=== PATIENT | male | born 1965 | race Caucasian/White ===

== ENCOUNTER 2019-09-13 13:04 | Emergency (ER) | payer OTHER, SELFPAY ==
[2019-09-13 13:06] VITALS: BP 142/94; PULSE 137; RESP 20; TEMP 37.1; O2SAT 98; BMI 26.6
--- NOTE | 2019-09-13 13:21 | EKG12_ITS ---
Test Reason : Blood Pressure : / mmHG Vent. Rate : 120 BPM Atrial Rate : 120 BPM P-R Int : 130 ms QRS Dur : 082 ms QT Int : 328 ms P-R-T Axes : 064 057 -63 degrees QTc Int : [address] & T wave abnormality, consider inferior ischemia Abnormal ECG Confirmed by SILVINA NIX, GAYLE ([id number]), fan mail editor RITA INMAN ([id number]) on 09/14/2019 1:37:40 PM Referred By: JOHANN Confirmed By:GAYLE COOL MD
--- NOTE | 2019-09-13 13:21 | RAD_ITS ---
STUDY: X-RAY CHEST REASON FOR EXAM: Male, 54 years old. SOB, COUGH, ASTHMA TECHNIQUE: AP upright portable view. COMPARISON: 05/13/2017. FINDINGS: The lungs are clear and expanded. There is no demonstrated pleural abnormality. Normal size heart. Normal mediastinum and adonis. Normal visualized pulmonary arteries. Normal visualized aortic arch and descending thoracic aorta. Normal visualized thoracic spine. Normal visualized ribs, clavicles, and shoulders. There is no demonstrated abnormality of the visualized soft tissue structures of the upper abdomen. RAD/Chest 1 View (Portable) IMPRESSION: Normal x-ray examination of the chest and unchanged since 05/13/2017. Electronically Signed: Bernabe Banks MD at 13:58 EDT , Service support ,
--- NOTE | 2019-09-13 13:22 | ED.VIS.GEN ---
History of Present Illness Chief Complaint: Shortness of Breath Narrative: This patient is a 54-year-old male who presents with shortness of breath. He initially became ill about 2 weeks ago with a URI-like illness. He had sinus congestion rhinorrhea and sore throat. No fevers. He does have a dry cough. His upper respiratory symptoms have improved but now he complains of burning and tightness in his chest which feels similar to exacerbations of asthma. His doctor called in Augmentin X days ago which she has been taking. He has not been improving and has been using his albuterol inhaler frequently without significant relief. His doctor called in a prednisone taper which she started last night and took 20 mg of prednisone last night and again today. He continues to feel short of breath. No fevers. No vomiting or diarrhea. He denies any pain. Past Medical History - Allergies and Home Meds Allergies/Adverse Reactions: Allergies codeine Adverse Reaction (Verified 09/13/19 13:08) Nausea Primary Care Physician: Karley Mckeon DO [Primary Care Provider] - Past Medical History: - - Asthma Smoking Status: Never smoker Review of Systems All systems negative except as indicated General: Denies: Fever Eyes: Denies: Visual changes - bilaterally ENT: Reports: Rhinorrhea, Sore throat. Denies: Bilateral ear pain Cardiovascular: Denies: Chest pain Respiratory: Reports: Dyspnea, Cough. Denies: Sputum Gastrointestinal: Denies: Abdominal pain, Nausea, Vomiting Musculoskeletal: Denies: Myalgias, Arthralgias Skin: Denies: Rash Neurological: Denies: Headache Physical Exam Vital Signs/Narrative: Vital Signs Temp Pulse Resp BP Pulse Ox 09/13/19 13:06 98.8 F 137 H 20 H 142/94 H 98 Inital Vital Signs reviewed: Yes General: Well nourished, Well developed Head: Normocephalic Eyes: EOMI ENT: Moist mucous membranes Neck: Supple Cardiovascular: - - Is regular tachycardia, no murmur, gallop, rub Respiratory: - - No distress able speak in full sentences he does not have rales rhonchi or wheezing and does have good air exchange Abdomen: Soft, Nontender Skin: Normal color Neurological: Alert Psychological: Normal affect Diagnostic/Tx/Re-eval Impressions Chest X-Ray 09/13/19 13:21 IMPRESSION: Normal x-ray examination of the chest and unchanged since 05/13/2017. Electronically Signed: Bernabe Banks MD at 13:58 EDT , Service support , 09/13/19 13:21 Chest 1 View (Portable) [RAD] Stat 09/13/19 13:35 Mucosa - Nasopharyngeal Rapid RSV (DFA) - Final 09/13/19 13:35 Mucosa - Nasopharyngeal Influenza Types A,B Direct FA (BENNY) - Final Laboratory Results 09/13/19 09/13/19 13:45 13:45 WBC 10.0 RBC 5.39 Hgb 16.4 Hct 48.9 MCV 90.7 MCH 30.4 MCHC 33.5 RDW Std Deviation 40.8 RDW Coeff of Storm 12.3 Plt Count 215 MPV 11.0 Immature Gran % (Auto) 0.200 Neut % (Auto) 85.4 H Lymph % (Auto) 11.3 L [place] % (Auto) 2.9 Eos % (Auto) 0.0 Baso % (Auto) 0.2 Absolute Neuts (auto) 8.6 H Absolute Lymphs (auto) 1.13 Nucleated RBC % 0 Sodium 141 Potassium 3.7 Chloride 107 Carbon Dioxide 25.0 Anion Gap 9 BUN 7 Creatinine 1.05 Estim Creat Clear Calc 76.07 Est GFR (MDRD) Af Amer 95 Est GFR (MDRD) Non-Af 78 BUN/Creatinine Ratio 6.7 L Glucose 122 H Calcium 9.2 - Medical Decision Making EKG shows sinus tachycardia at a rate of 120. Patient has inferior T wave inversions. CBC BMP unremarkable. Rapid influenza and RSV negative. Chest x-ray shows no acute process. Patient symptoms do seem to be respiratory in nature but given EKG changes troponin is pending at the time of this dictation. On reevaluation patient is resting comfortably. His heart rate is improved although is still slightly tachycardic. He is being treated with IV fluids. This time his troponin is negative I do not see a benefit to hospitalization especially given in the setting of potential increased exposure during the Covid19 pandemic. He is agreeable with this plan. If troponin is negative plan is discharged home to follow-up as an outpatient. He is currently on antibiotics and steroids and he was advised to continue this. He understands to return for new or worsening symptoms and was instructed on specific signs and symptoms to monitor for. ED Disposition - Plan for ED Patient: Disposition: Home or Assisted Living Diagnosis: Bronchitis, Asthma exacerbation Instructions: Acute Bronchitis, ED REACTIVE AIRWAY DISEASE Adult Referrals: Karley Mckeon DO [Primary Care Provider] -
[2019-09-13 13:56] VITALS: BP 129/101; BP 142/94; PULSE 104; PULSE 137; RESP 20; TEMP 37.1; O2SAT 97; O2SAT 98; BMI 26.7
[2019-09-13 13:56] LABS: Absolute Lymphocyte Count 1.13 X10^3/uL (0.83-4.51); Absolute Neutrophil Count 8.6 X10^3/uL (2.0-7.7); Basophil# 0.02 X10^3/uL; Basophil% 0.2 % (0-1); Hematocrit 48.9 % (40-54); Hemoglobin 16.4 g/dL (13.0-16.5); Lymphocyte # 1.13 X10^3/ul (4.0); Lymphocyte % 11.3 % (19-41); Mean Corp Hgb Conc 33.5 g/dL (32-36); Mean Corpuscular Hgb 30.4 pg (27.0-32.0); Mean Corpuscular Volume 90.7 fL (80-94); Monocyte# 0.29 X10^3/uL; Monocyte% 2.9 % (0-10); NRBC Flagged by Analyzer 0 % (0-5); Neutrophil # 8.55 X10^3/uL (2.7-7.7); Neutrophil % 85.4 % (47-70); Platelet Count 215 K/mm3 (150-450); RBC Distribution Width CV 12.3 % (11.6-14.6); RBC Distribution Width SD 40.8 fl (35.1-43.9); Red Blood Count 5.39 M/mm3 (4.6-6.2)
[2019-09-13 14:06] LABS: Anion Gap 9 (5-15); BUN 7 mg/dL (7-18); BUN/Creat Ratio 6.7 RATIO (10-20); Calcium,Total 9.2 mg/dL (8.5-10.1); Chloride 107 mmol/L (98-107); Creatinine, Serum 1.05 mg/dL (0.70-1.30); EST Glomerular Filtration Rate 78 mL/min (>60); Est Glom Filt Rate - Afr Amer 95 mL/min (>60); Estimated Creatinine Clearance 76.07 ml/min; Glucose 122 mg/dL (74-106); Potassium 3.7 mmol/L (3.5-5.1); Sodium Level 141 mmol/L (136-145)
[2019-09-13] MEDS: 0.9% Normal Saline 1,000 ML 999 ML IV (14:17)
[2019-09-13 15:21] VITALS: BP 124/93; PULSE 89; RESP 16; TEMP 37.2; O2SAT 96
[2019-09-13 15:53] VITALS: BP 139/106; PULSE 94; RESP 18; TEMP 36.9; O2SAT 99
== END 2019-09-13 15:58 | disposition home or self-care (01) ==
PROVIDERS: Emergency Provider Emergency Medicine; PCP Internal Medicine
DX: J45.901 Unspecified asthma with (acute) exacerbation (principal); J40 Bronchitis, not specified as acute or chronic; R00.0 Tachycardia, unspecified; Z88.5 Allergy status to narcotic agent; Z79.52 Long term (current) use of systemic steroids; Z79.899 Other long term (current) drug therapy
CPT/HCPCS: 71045; 80048; 84484; 85025; 87804; 87807; 93005; 96360; 96361; 99283; J7030

== ENCOUNTER → 2019-09-23 10:23 | Outpatient (CLI) | payer OTHER, SELFPAY ==
[2019-09-13 13:56] VITALS: BMI 26.7
--- NOTE | 2019-09-23 10:43 | RAD_ITS ---
STUDY: X-RAY CHEST REASON FOR EXAM: Male, 54 years old. Dry cough, sob, x 1 week, hx asthma TECHNIQUE: PA and lateral views of the chest. COMPARISON: Comparison is made with prior examination dated September 13, 2019. FINDINGS: The lungs are clear and expanded. There is no demonstrated pleural abnormality. Normal size heart. Normal mediastinum and adonis. Normal visualized pulmonary arteries. Normal visualized aortic arch and descending thoracic aorta. There are mild degenerative changes of the visualized thoracic spine. Normal visualized ribs, clavicles, and shoulders. There is no demonstrated abnormality of the visualized soft tissue structures of the upper abdomen. RAD/Chest PA and Lateral IMPRESSION: Normal x-ray examination of the chest. Electronically Signed: Enrique Narvaez, at 11:22 EDT , Service support ,
== END ==
PROVIDERS: PCP Internal Medicine; Referring Provider Internal Medicine; Visit Provider Internal Medicine
DX: R05 Cough (principal)
CPT/HCPCS: 71046

== ENCOUNTER → 2019-10-21 15:31 | Outpatient (CLI) | payer OTHER, SELFPAY ==
--- NOTE | 2019-10-21 15:34 | CT_ITS ---
STUDY: CTA CHEST REASON FOR EXAM: Male, 54 years old. SOB x 2 months, ? PE RADIATION DOSAGE (If Supplied By Facility): CTDIvol = ( 7.34 ) mGy, DLP = ( 343.84 ) mGycm TECHNIQUE: The examination was performed with the intravenous administration of 100ML ISOVUE 370. Post-processing of the angiographic images was performed, with multiplanar reformation and 3D reconstruction. Individualized dose optimization techniques were used for this CT. COMPARISON: None. FINDINGS: Small bilateral benign-appearing axillary lymph nodes. Normal enhancement of the main pulmonary artery and right and left pulmonary arteries. Normal enhancement of the bilateral peripheral pulmonary arteries. There is no demonstrated pulmonary embolism. Normal thoracic aorta and visualized great vessels. There is no demonstrated aortic dissection. Normal heart and pericardium. Normal mediastinum. Normal hilar regions. Normal visualized trachea and bronchi. The lungs are well expanded. 4.1 mm faint nodule in the lateral aspect of the right upper lobe as seen on axial image #177. Normal pleura. Normal chest wall structures. Normal osseous structures. There is a 1.5 cm cyst in the dome of the right lobe of the liver. Small hiatal hernia. CT/CTA Chest W/WO Contrast IMPRESSION: No evidence of pulmonary emboli. 1.5 cm cyst in the dome of the right lobe of the liver. 4.1 mm faint nodule in the lateral aspect of the right upper lobe. Electronically Signed: Enrique Narvaez, at 16:01 EDT , Service support ,
== END ==
PROVIDERS: PCP Internal Medicine; Referring Provider Internal Medicine; Visit Provider Internal Medicine
DX: R06.02 Shortness of breath (principal)
CPT/HCPCS: 71275; Q9967

== ENCOUNTER → 2019-11-23 | Outpatient (CLI) | payer OTHER, SELFPAY ==
--- NOTE | 2019-11-23 09:42 | PFTCOMP_ITS ---
COMPLETE PULMONARY FUNCTION TEST INTERPRETATION Brief HPI: Patient is a 54 year old male, currently under the care of myself, who presents to [facility] for complete pulmonary function tests secondary to diagnosis of dyspnea. Respiratory therapist reports good effort and reproducible results. Interpretation: Forced expiration spirometry shows no large airways obstructive ventilatory defect with an FEV1 of 102% predicted. There is no significant bronchodilator response by strict ATS criteria. Spirograms are of good quality and plateau normally. The respiratory flow volume loop shows a normal pattern. Lung volumes by body plethysmography show an elevated total lung capacity at 7.07 L, 117% predicted. All other lung volumes are increased symmetrically. Diffusion capacity by carbon monoxide is normal at 118% predicted. The airway resistance is normal. No previous pulmonary function tests were available for review. Impression: These pulmonary function tests are within normal limits. Hyperinflation may be a normal physiologic variant.
== END | disposition home or self-care (01) ==
LOC: PSN 07:13
PROVIDERS: PCP Internal Medicine; Referring Provider Internal Medicine Critical Care Medicine; Visit Provider Internal Medicine Critical Care Medicine
DX: R06.02 Shortness of breath (principal)
CPT/HCPCS: 94060; 94726; 94729

== ENCOUNTER → 2020-04-22 06:50 | Outpatient (CLI) | payer OTHER, SELFPAY ==
--- NOTE | 2020-04-22 06:51 | CT_ITS ---
STUDY: CT CHEST WITHOUT CONTRAST REASON FOR EXAM: Male, 54 years old. Lung nodule follow up, no new problems. Hx asthma. RADIATION DOSAGE (If Supplied By Facility): CTDIvol = ( 8.99 ) mGy, DLP = ( 343.88 ) mGycm TECHNIQUE: Transaxial imaging was performed without the administration of intravenous contrast material. Multiplanar coronal and sagittal images were reformatted. Individualized dose optimization techniques were used for this CT. COMPARISON: Comparison is made with prior study dated 10/21/2011. FINDINGS: Stable small benign-appearing bilateral axillary lymph nodes. Mild degree of emphysematous changes. Stable faintly seen 4.1 mm nodule in the lateral aspect of the right upper lobe as seen on axial image #38. There is no demonstrated pleural abnormality. Normal heart and pericardium. Normal mediastinum. Normal hilar regions. Normal unenhanced pulmonary arteries. Normal aorta arch and descending thoracic aorta. Normal osseous structures. Stable appearance of the bilateral hepatic cysts. CT/Chest without Contrast IMPRESSION: Stable examination. 12 month follow-up examination is recommended. Electronically Signed: Enrique Narvaez, at 11:06 EST , Service support ,
== END ==
PROVIDERS: PCP Internal Medicine; Referring Provider Internal Medicine; Visit Provider Internal Medicine
DX: R91.1 Solitary pulmonary nodule (principal)
CPT/HCPCS: 71250

== ENCOUNTER → 2021-04-24 06:41 | Outpatient (CLI) | payer OTHER, SELFPAY ==
--- NOTE | 2021-04-24 06:46 | CT_ITS ---
STUDY: CT CHEST WITHOUT CONTRAST REASON FOR EXAM: Male, 55 years old. Follow up 4.1 mm nodule RADIATION DOSAGE (If Supplied By Facility): CTDIvol = ( 11.18 ) mGy, DLP = ( 438.72 ) mGycm TECHNIQUE: Transaxial imaging was performed without the administration of intravenous contrast material. Multiplanar coronal and sagittal images were reformatted. Individualized dose optimization techniques were used for this CT. COMPARISON: Comparison is made with prior study dated 04/22/2020. FINDINGS: Stable small benign-appearing bilateral axillary lymph nodes. Stable mild degree of emphysematous changes. Stable 4 mm faint nodule seen in the peripheral lateral aspect of the right upper lobe as seen on axial image #44. There is no demonstrated pleural abnormality. Normal heart and pericardium. Normal mediastinum. Normal hilar regions. Normal unenhanced pulmonary arteries. Normal aorta arch and descending thoracic aorta. Normal osseous structures. Stable appearance of the cysts within the liver. CT/Chest without Contrast IMPRESSION: Stable 4 mm nodule in the lateral aspect of the right upper lobe. Electronically Signed: Enrique Narvaez MD at 9:06 EST , Service support ,
== END ==
PROVIDERS: PCP Internal Medicine; Referring Provider Nurse Practitioner Acute Care; Visit Provider Nurse Practitioner Acute Care
DX: R91.1 Solitary pulmonary nodule (principal)
CPT/HCPCS: 71250

== ENCOUNTER 2021-08-29 12:53 | Outpatient (CLI) | payer OTHER, SELFPAY ==
--- NOTE | 2021-08-29 12:37 | EKG12_ITS ---
Test Reason : PREOP Blood Pressure : / mmHG Vent. Rate : 072 BPM Atrial Rate : 072 BPM P-R Int : 130 ms QRS Dur : 086 ms QT Int : 392 ms P-R-T Axes : 062 070 004 degrees QTc Int : 429 ms Sinus rhythm with marked sinus arrhythmia Nonspecific ST and T wave abnormality Abnormal ECG Confirmed by COURTNEY NIX, FAISAL ([id number]), scientific publications editor YUDI OCONNOR ([id number]) on 08/31/2021 10:08:51 AM Referred By: Nicholas Jean-Baptiste Confirmed By:FAISAL VALDEZ MD
== END 2021-08-29 23:59 | disposition home or self-care (01) ==
LOC: PAT 09-26 12:53
PROVIDERS: PCP Internal Medicine; Referring Provider Internal Medicine Gastroenterology; Visit Provider Internal Medicine Gastroenterology
DX: Z01.818 Encounter for other preprocedural examination (principal)
CPT/HCPCS: 93005

== ENCOUNTER → 2021-10-31 | Outpatient (CLI) | payer OTHER, SELFPAY ==
--- NOTE | 2021-10-31 10:42 | STEWCON_ITS ---
Reason For Study: PRE OP CLEARANCE, ARRHYTHMIA Stress Results Protocol: Ian Protocol WITH DEFINITY Maximum Predicted HR: 165 bpm Target HR: 140 bpm % Maximum Predicted HR: 99 % DurationHeart Rate Stage (mm:ss) (bpm) BP Comment BASELINE 71 112/86 STAGE 1 3:00 106 142/88 NO CHEST PAIN STAGE 2 3:00 126 144/92 STAGE 3 3:00 164 152/102 RECOVERY 97 128/84 2 CC DEFINITY FOR ENTIRE TEST Stress Duration: 9:00 mm:ss Maximum Stress HR: 164 bpm Baseline Echocardiogram Findings Stress Echo Wall motion Data Resting WM Intermediate WM Stress WM Doppler Measurements & Calculations TR max jihan: 258.9 cm/sec TR max P.8 mmHg ECHO/Stress Test Echo W/Contrast Interpretation Summary Exercise stress echo. 56-year-old male with a history of preoperative cardiac evaluation. Stress protocol: Resting EKG demonstrates sinus rhythm with a rate of 67 bpm normal intervals ar e noted resting blood pressure is 102/86 mmHg. The patient exercised according to regular Ian vinnie col for total duration of 9 minutes. The maximum heart rate attained was 164 bpm which was 99 % of max impact at heart rate the maximum workload was 10.1 metabolic equivalents. At rest there w ere no ST or T wave changes noted suggest ischemia and at peak exercise upsloping ST changes were n oted with did not meet the criteria for ischemia. Some T wave inversions were noted in lead III a nd aVF. No chest pain was noted the test was terminated due to target heart rate being achieved. The peak blood pressure is 152/102 mmHg which was a good blood pressure response to exercise. Stress echocardiogram. The resting echocardiogram was performed with Definity e reggie. The estimated ejection fraction at rest was 55%. At peak exercise there was thicken ing of all patton and reduction of left ventricular cavity size peaking at 65%. No wall motion abnorm alities were present. Conclusion: Exercise stress echo with no EKG criteria for ischemia at a high workload. No clinical angina noted. Normal stress and resting echocardiographic images noted. Ordering Physician: Linwood Arana Referring Physician: Linwood Arana Performed By: Carmella Oliveira RDCS
== END | disposition home or self-care (01) ==
LOC: CVS 10:40
PROVIDERS: PCP Internal Medicine; Referring Provider Internal Medicine Cardiovascular Disease; Visit Provider Internal Medicine Cardiovascular Disease
DX: Z01.810 Encounter for preprocedural cardiovascular examination (principal); R00.9 Unspecified abnormalities of heart beat
CPT/HCPCS: 93017; 93350; Q9957; A4216; C8928

== ENCOUNTER 2022-02-01 06:59 | Day surgery (SDC) | payer OTHER, SELFPAY ==
[2022-02-01] VITALS (7 sets, daily range): BP systolic 93–137; BP diastolic 66–90; PULSE 65–105; RESP 16–18; TEMP 36.5–37.1; O2SAT 95–100; BMI 27.3
[2022-02-01] MEDS: Lactated Ringers 1,000 ML 15 ML IV (07:29)
--- NOTE | 2022-02-01 08:01 | PCM.HP.STD ---
HPI - General General Date of Admission: 02/01/22 Date of Service: 02/01/22 Chief Complaint: sreening colonoscopy HPI Narrative NA ARIAS, is a 56 M who presents for screening colonoscopy. He has not had a colonoscopy previously. He is not having abdominal pain. He has not had any change of bowel habits. He is not have any chest pain or shortness of breath. He does not take laxatives. He has no past medical history of anemia. Overall he is in very good health. All other 16 review of systems are negative except as per body mentioned HPI. [facility] Medical History (Updated 01/29/22 @ 13:41 by Giuliana Cody) Abnormal electrocardiogram Allergic rhinitis Arthritis Asthma Cardiology follow-up encounter Dietary restriction Encounter for screening for malignant neoplasm of colon Fibromyalgia GERD (gastroesophageal reflux disease) Migraine Muscle tension headache Normal stress echocardiogram Plantar fasciitis Wears glasses Home Medications therapeutic multivitamin 1 ea PO DAILY 05/13/17 [History Last Taken 05/12/17] loratadine 10 mg capsule 10 mg PO DAILY 11/12/19 [History Last Taken Unknown] cholecalciferol (vitamin D3) 25 mcg (1,000 unit) capsule 25 mcg PO DAILY 11/18/19 [History Last Taken Unknown] famotidine 20 mg tablet 20 mg PO DAILY 11/18/19 [History Last Taken Unknown] albuterol sulfate 90 mcg/actuation aerosol inhaler 1 - 2 puff inhalation Q6H PRN ASTHMA 08/28/21 [History Last Taken Unknown] ascorbic acid (vitamin C) 500 mg tablet (Vitamin C) 500 mg PO DAILY 08/28/21 [History Last Taken Unknown] zinc 50 mg tablet 50 mg PO DAILY 08/28/21 [History Last Taken Unknown] metaxalone 800 mg tablet 800 mg PO ONCE PRN MIGRAINES 10/11/21 [History Last Taken Unknown] rizatriptan 10 mg tablet 10 mg PO ONCE PRN MIGRAINES 10/11/21 [History Last Taken Unknown] Allergy/AdvReac Type Severity Reaction Status Date / Time codeine AdvReac Nausea Verified 02/01/22 07:19 Family History (Updated 11/06/21 @ 10:54 by Palma Salas) Father Diabetes Atrial fibrillation History of colon polyps Grandmother Diabetes Other Asthma Heart disease Hypertension Social History Smoking Status: Never smoker ROS Review of Systems ROS Unobtainable: other Constitutional Constitutional: Denies fatigue, fever(s), poor appetite, weight gain or weight loss ENT HEENT: Denies mouth lesions Cardiovascular Cardiovascular: Denies abdominal bloating, abdominal edema or abdominal pain Respiratory/Chest Respiratory/Chest: Denies change in mental status, change in phlegm color, chest congestion or chest tightness Gastrointestinal Gastrointestinal: Denies belching, bloating, change in bowel habits, change in stool character, chewing difficulty, coffee ground emesis, constipation, cramping, diarrhea, dyspepsia, dysphagia, early satiety, excessive flatus, fecal incontinence, heartburn, hematemesis, hematochezia, hemorrhoids, loose stools, melena, nausea, odynophagia, rectal bleeding, tenesmus, vomiting or weight changes Genitourinary Genitourinary: Denies abdominal discomfort, burning urination or itching Musculoskeletal Musculoskeletal: Reports as per HPI; Denies muscle weakness or myalgias Integumentary Integumentary: Denies jaundice Neurologic Neurologic: Denies lack of coordination or weakness Psychiatric Psychiatric: Denies confusion, depression, memory loss, mood swings, paranoia or suicidal ideation Endocrine Endocrinology: Denies systems reviewed and no addt'l complaints, except as documented Hematologic/Lymphatic Hematologic/Lymphatic: Denies anemia, easy bleeding, easy bruising or lymphadenopathy Allergic/Immunologic Allergic/Immunologic: Denies systems reviewed and no addt'l complaints, except as documented Vital Signs Vital Signs Vital Signs: 02/01/22 07:21 02/01/22 07:23 Temperature 97.7 F L Temperature Source Temporal Pulse Rate 105 H Respiratory Rate 18 Respiratory Pattern Normal Blood Pressure 137/90 H Blood Pressure Mean 105 Blood Pressure Source Monitor Blood Pressure Position Semi-Fowlers Blood Pressure Location Right Arm Pulse Ox 100 Oxygen Delivery Method Room Air Weight Weight: 174 lb 6.4 oz Body Mass Index (BMI) 27.3 Physical Exam Const alert General Appearance: cooperative Orientation / Consciousness: oriented to person HEENT hearing grossly normal bilaterally Head and Scalp: normal to inspection Face and Sinus: face symmetric Nose: external nose normal Mouth: oral and palatal mucosa normal Eyes conjunctivae normal General Eye: normal appearance of both eyes Neck full ROM General: normal visual inspection Lymph Lymphatic: no lymphadenopathy noted Chest inspection of chest normal and palpation of chest normal Chest: symmetrical chest wall rise Resp normal respiratory effort Effort and Inspection: able to speak in complete sentences Cardio regular rate GI non-distended Percussion: normal to percussion Rectal Exam: deferred Neuro Speech: speech normal Gait (Neuro): normal gait Assessment & Plan Assessment/Plan (1) Encounter for screening for malignant neoplasm of colon: PLAN: He was explained alternatives, risk, benefits including not withstanding bleeding, infection, sepsis, missed polyps, perforation, need for emergent surgery . Have an ASA of 1.
--- NOTE | 2022-02-01 08:15 | COLBX_PTH ---
PATIENT: NA ARIAS LOC: EN U#:[id number] AGE/SX: 56/M ROOM: RE02/01/[address]: Dr. Nicholas Jean-Baptiste DO : 1965 BED: DIS: 02/01/2022 SPEC #: [id number] RECD: 02/01/22 10:26 STATUS: MEL REChalino #: [id number] JACOB: 02/01/22 08:[address]: Nicholas Jean-Baptiste DEPT: SURGICAL PATHOLOGY RECD BY: Carly Burr ENTERED: 02/01/22 12:10 SP TYPE: COLON BX OT DR: Dr. Karley Mckeon DO Tissues: A - Ascending colon B - COLON BIOPSY C - Descending colon Procedures: Surgery Specimen Level IV HEADER OPERATION: Colonoscopy- open access (MAC) with polypectomy PRE-OP DIAGNOSIS: Encounter for screening for malignant neoplasm of colon TISSUE SUBMITTED: A. Ascending colon polyp, B. Hepatic flexure polyp, C. Descending colon polyp MICROSCOPIC DIAGNOSIS A. Ascending colon polyp, biopsy: Tubular adenoma. B. Hepatic flexure polyp, biopsy: Fragments of tubular adenoma. C. Descending colon polyp, biopsy: Fragments of tubular adenoma. AM: guerrero 02/02/2022 MICROSCOPIC DESCRIPTION Slides are reviewed. GROSS DESCRIPTION A. Received is one container labeled with the patient name and designated ascemding colon. The specimen consists of one irregular fragment of light wyatt soft tissue that measures 0.5 x 0.3 x 0.1 cm. The specimen is totally submitted in one cassette. B. Received is one container labeled with the patient name and designated hepatic flexure. The specimen consists of multiple irregular fragments of light wyatt soft tissue that in aggregate measure 2.5 x 1.0 x 0.3 cm. The specimen is totally submitted in one cassette. C. Received is one container labeled with the patient name and designated descending colon. The specimen consists of multiple irregular fragments of light wyatt soft tissue that in aggregate measure 2 x 1 x 0.3 cm. The specimen is totally submitted in one cassette. /SJ:gerson 02/01/22 TC:5 [facility]:[id number]
--- NOTE | 2022-02-01 08:43 | OP.COLON_ITS ---
Patient Name: Syed Alegre Procedure Date: 02/01/2022 8:03 AM Date of : 1965 Age: 56 Procedure: Colonoscopy Indications: Screening for colorectal malignant neoplasm Providers: Nicholas Jean-Baptiste DO Medicines: Monitored Anesthesia Care Patient Profile: This is a 56 year old male. Refer to note in patient chart for documentation of history and physical. Last Colonoscopy: none. The patient's first colonoscopy is today. Complications: No immediate complications. Procedure: Pre-Anesthesia Assessment: - Prior to the procedure, a History and Physical was performed, and patient medications and allergies were reviewed. The risks and benefits of the procedure and the sedation options and risks were discussed with the patient. All questions were answered and informed consent was obtained. Patient identification and proposed procedure were verified by the physician in the pre-procedure area. Mental Status Examination: alert and oriented. Airway Examination: normal oropharyngeal airway and neck mobility. Respiratory Examination: clear to auscultation. CV Examination: normal. Prophylactic Antibiotics: The patient does not require prophylactic antibiotics. Prior Anticoagulants: The patient has taken no previous anticoagulant or antiplatelet agents. After reviewing the risks and benefits, the patient was deemed in satisfactory condition to undergo the procedure. The anesthesia plan was to use moderate sedation / analgesia (conscious sedation). Immediately prior to administration of medications, the patient was re-assessed for adequacy to receive sedatives. The heart rate, respiratory rate, oxygen saturations, blood pressure, adequacy of pulmonary ventilation, and response to care were monitored throughout the procedure. The physical status of the patient was re-assessed after the procedure. After I obtained informed consent, the scope was passed under direct vision. Throughout the procedure, the patient's blood pressure, pulse, and oxygen saturations were monitored continuously. The adult colonoscope was introduced through the anus and advanced to the cecum, identified by appendiceal orifice and ileocecal valve. The colonoscopy was performed without difficulty. The patient tolerated the procedure well. The quality of the bowel preparation was good. Scope In: 8:13:50 AM Scope Withdrawal Time 0 hours 21 minutes 36 seconds Scope Out: 8:38:08 AM Total Procedure Duration Time 0 hours 24 minutes 18 seconds Findings: The perianal and digital rectal examinations were normal. A few small-mouthed diverticula were found in the recto-sigmoid colon and sigmoid colon. Three sessile polyps were found in the descending colon, hepatic flexure and ascending colon. The polyps were 1 to 2 mm in size. These polyps were removed with a hot snare. Resection and retrieval were complete. Verification of patient identification for the specimen was done. Estimated blood loss was minimal. Impression: - Diverticulosis in the recto-sigmoid colon and in the sigmoid colon. - Three 1 to 2 mm polyps in the descending colon, at the hepatic flexure and in the ascending colon, removed with a hot snare. Resected and retrieved. Recommendation: - Repeat colonoscopy in 3 years for surveillance. - Continue present medications. Procedure Code(s): --- Professional --- 06478, Colonoscopy, flexible; with removal of tumor(s), polyp(s), or other lesion(s) by snare technique CPT copyright 2017 [employer]. All rights reserved. The codes documented in this report are preliminary and upon digester cook review may be revised to meet current compliance requirements. Nicholas Jean-Baptiste DO 02/01/2022 8:43:19 AM This report has been signed electronically. Number of Addenda: 1 Note Initiated On: 02/01/2022 8:03 AM Addendum Number: 1 Addendum Date: 03/22/2022 6:13:35 AM MAC was used as sedation for this procedure. Nicholas Jean-Baptiste DO 03/22/2022 6:13:41 AM This report has been signed electronically.
--- NOTE | 2022-02-01 08:45 | OP.CCLET_ITS ---
03/22/2022 Karley Mckeon [address] [place] [address] Re : Colonoscopy procedure for Syed Alegre Dear Dr. Mckeon This procedure was performed on January. My impressions and recommendations are as follows: Impressions : - Diverticulosis in the recto-sigmoid colon and in the sigmoid colon. - Three 1 to 2 mm polyps in the descending colon, at the hepatic flexure and in the ascending colon, removed with a hot snare. Resected and retrieved. Recommendations : - Repeat colonoscopy in 3 years for surveillance. - Continue present medications. My findings are described in the full procedure note, which is enclosed. If I can be of further assistance, please feel free to contact me at . Sincerely, Nicholas Jean-Baptiste, 02/01/2022 8:43:19 AM This report has been signed electronically.
== END 2022-02-01 09:37 | disposition home or self-care (01) ==
LOC: EN 07:00 → AC 07:01
PROVIDERS: PCP Internal Medicine; Referring Provider Internal Medicine; Visit Provider Internal Medicine Gastroenterology
PROC: 0DJD8ZZ Inspection of Lower Intestinal Tract, Via Natural or Artificial Opening Endoscopic (ICD-10-PCS; CPT 45378; principal; 2022-02-01 08:10)
DX: Z12.11 Encounter for screening for malignant neoplasm of colon (principal); D12.2 Benign neoplasm of ascending colon; D12.3 Benign neoplasm of transverse colon; D12.4 Benign neoplasm of descending colon; K57.30 Diverticulosis of large intestine without perforation or abscess without bleeding; J45.909 Unspecified asthma, uncomplicated; M79.7 Fibromyalgia; M19.90 Unspecified osteoarthritis, unspecified site; K21.9 Gastro-esophageal reflux disease without esophagitis; Z79.899 Other long term (current) drug therapy
CPT/HCPCS: 45385; 88305; J7120; J2405

== ENCOUNTER 2023-11-24 10:00 | Emergency (ER) | payer OTHER, SELFPAY ==
[2023-11-24 10:01] VITALS: BP 127/85; PULSE 84; RESP 18; TEMP 36.3; O2SAT 98; BMI 27.3
[2023-11-24 10:04] VITALS: BP 127/85; PULSE 94; RESP 18; TEMP 36.3; O2SAT 98; BMI 27.3
--- NOTE | 2023-11-24 11:07 | EX.ED.UPPERE ---
HPI History of Present Illness HPI Narrative: Patient presents with a laceration to his left thumb that occurred today. Patient is right-hand dominant. Patient was using a razor knife and accidentally cut his left thumb. Patient is unsure of his last tetanus. Patient admits to some tingling into the tip of the thumb. Patient states nothing makes the pain better and nothing makes it worse. Patient describes the pain as burning and stabbing. Patient denies any weakness. Patient denies any other injuries. Chief Complaint: Laceration Informant: patient Onset/Context/Timing Onset: Today Context: Sudden Onset Timing: Continuous Quality of Pain: Burning and Stabbing Location: Left thumb Worsened by: Nothing Relieved by: Nothing Associated Symptoms Associated Symptoms: Positive for Parasthesia; Negative for Weakness or Loss of Funtion Narrative Tetanus Immunization: Unknown [facility] Medical History Normal stress echocardiogram Cardiology follow-up encounter Abnormal electrocardiogram Wears glasses Arthritis Dietary restriction Encounter for screening for malignant neoplasm of colon GERD (gastroesophageal reflux disease) Migraine Muscle tension headache Allergic rhinitis Asthma Plantar fasciitis Fibromyalgia Home Medications ?Medication ?Instructions ?Recorded ?Last Taken ?Type therapeutic multivitamin 1 ea PO DAILY 05/13/17 05/12/17 History loratadine 10 mg capsule 10 mg PO DAILY 11/12/19 Unknown History cholecalciferol (vitamin D3) 25 25 mcg PO DAILY 11/18/19 Unknown History mcg (1,000 unit) capsule famotidine 20 mg tablet 20 mg PO DAILY 11/18/19 Unknown History albuterol sulfate 90 mcg/actuation 1 - 2 puff inhalation Q6H PRN 08/28/21 Unknown History aerosol inhaler ASTHMA ascorbic acid (vitamin C) 500 mg 500 mg PO DAILY 08/28/21 Unknown History tablet (Vitamin C) zinc 50 mg tablet 50 mg PO DAILY 08/28/21 Unknown History metaxalone 800 mg tablet 800 mg PO ONCE PRN MIGRAINES 10/11/21 Unknown History rizatriptan 10 mg tablet 10 mg PO ONCE PRN MIGRAINES 10/11/21 Unknown History Allergy/AdvReac Type Severity Reaction Status Date / Time codeine AdvReac Nausea Verified 11/24/23 10:01 Family History (Updated 11/06/21 @ 10:54 by Palma Salas) Father Diabetes Atrial fibrillation History of colon polyps Grandmother Diabetes Other Asthma Heart disease Hypertension Surgical History no surgical history no surgical history Social History Smoking Status: Never smoker ROS ROS ED Constitutional Constitutional ED: Denies chills or fever(s) Eyes Eyes: Denies blurry vision or change in vision ENT ENT ED: Denies rhinorrhea or sore throat Cardiovascular Cardiovascular: Denies chest pain or palpitations Respiratory/Chest Respiratory/Chest: Denies cough or dyspnea Gastrointestinal Gastrointestinal: Denies nausea or vomiting Genitourinary Genitourinary ED: Denies dysuria or hematuria Musculoskeletal Musculoskeletal: Denies back pain or neck pain Integumentary Denies abscess or rash Neurologic Neurologic: Denies headache(s) or weakness Allergic/Immunologic Allergic/Immunologic ED: Denies mouth swelling or urticaria EXAM Physical Exam Const Vital Signs: 11/24/23 10:01 11/24/23 10:04 Temperature 97.3 F L 97.4 F L Temperature Source Temporal Temporal Pulse Rate 84 94 Respiratory Rate 18 18 Blood Pressure 127/85 H 127/85 H Blood Pressure Mean 99 99 Pulse Ox 98 98 Oxygen Delivery Method Room Air Room Air Positive well nourished and well developed General Appearance ED: well developed and NAD HEENT Reports moist mucous membranes Neck full ROM and supple Neuro oriented x3, CN's II-XII intact bilaterally, moves all extremities, no focal motor deficits and no sensory deficits noted Sensorium / Orientation: alert Motor Exam: strength 5/5 throughout Psych mental status grossly normal Skin Skin Narrative: There is a 2 cm full-thickness linear laceration over the palmar aspect of the distal phalanx of the left thumb. There is moderate gapping of the wound margins. There are no foreign bodies noted. Sensation was intact to light touch in all digits. Capillary refills less than 2 seconds in all digits. Strength is 5/5 in flexion extension of the IP and MP joints of the left thumb. MDM MDM MDM Narrative Medical decision making narrative: Patient was given a tetanus booster. The wound was cleaned and irrigated with copious amounts of normal saline. The wound was anesthetized with 1% plain lidocaine via digital block. The wound was closed with 4 simple interrupted #4-0 Ethilon sutures under sterile technique. Patient tolerated the procedure well. Bacitracin dressing was applied. Patient was instructed to keep the wound clean and dry. Patient was instructed to follow-up with his primary care physician in 7 days for wound recheck and suture removal. Patient understood and was agreeable with the plan. All questions were answered. Procedures Lacerations Left thumb: Length: 2 cm Depth: Sub Q Shape: Linear Prep: Sterile Conditions and Chlorhexadine Laceration repair: Digital block, Irrigated, Lidocaine, Skin sutures and Wound explored Irrigated (ml): 100 Suture Information: Ethilon, Simple and 4-0 Discharge Plan Triage Chief Complaint: Laceration ED Provider: Wilfredo Stone Dx/Rx/DC Orders Clinical Impression: Laceration of left thumb without foreign body without damage to nail Instructions: ED Laceration, Hand: All Closures Prescriptions: No Action loratadine 10 mg capsule 10 mg PO DAILY famotidine 20 mg tablet 20 mg PO DAILY cholecalciferol (vitamin D3) 25 mcg (1,000 unit) capsule 25 mcg PO DAILY rizatriptan 10 mg tablet 10 mg PO ONCE PRN (Reason: MIGRAINES) metaxalone 800 mg tablet 800 mg PO ONCE PRN (Reason: MIGRAINES) therapeutic multivitamin 1 EACH tablet 1 ea PO DAILY ascorbic acid (vitamin C) [Vitamin C] 500 mg Tablet 500 mg PO DAILY zinc 50 mg Tablet 50 mg PO DAILY albuterol sulfate 90 mcg/actuation Hfa Aerosol Inhaler 1 - 2 puff INHALATION Q6H PRN (Reason: ASTHMA) Primary Care Provider: Karley Mckeon Referrals: Karley Mckeon DO [Primary Care Provider] - 7 Days for suture removal Print Language: Portuguese Disposition Disposition: Home, Self Care
[2023-11-24] MEDS: Diphth,Pertuss(Acell),Tet Vac 0.5 ML Vial IM (11:25)
[2023-11-24] MEDS: Lidocaine 1% (20 ml mdv) 20 ML Vial INFILT (11:28)
[2023-11-24 14:05] VITALS: BP 127/85; PULSE 94; RESP 18; TEMP 36.3; O2SAT 98
== END 2023-11-24 14:06 | disposition home or self-care (01) ==
LOC: ED 11:27
PROVIDERS: Emergency Provider Emergency Medicine; PCP Internal Medicine; Visit Provider Emergency Medicine
DX: S61.012A Laceration without foreign body of left thumb without damage to nail, initial encounter (principal); W26.0XXA Contact with knife, initial encounter; Z23 Encounter for immunization
CPT/HCPCS: 12001; 90471; 90715; 99284

== ENCOUNTER 2025-03-22 05:21 | Day surgery (SDC) | payer OTHER, SELFPAY ==
[2025-03-22] VITALS (8 sets, daily range): BP systolic 99–141; BP diastolic 56–82; PULSE 75–82; RESP 16; TEMP 36.4–36.6; O2SAT 96–100; BMI 28.3
--- OUTSIDE RECORDS SUMMARY | 2025-03-22 05:24 | XMS RPT_ITS | CCD ---
Author Organization [facility] Care Team Providers Care Claim Clinician Name Role Phone Karley Mckeon Unavailable Cecelia Anand Unavailable Unavailable Magee, Marina Unavailable Unavailable Fast, Fifi A Unavailable Unavailable Unavailable Karley Mckeon Unavailable Ian Hanson Unavailable Cindy Pollack Unavailable Unavailable MessengerBrigitte Unavailable Unavailable Gravius, Nalini Unavailable Unavailable Slarb, Amaris Unavailable Unavailable Unavailable Unavailable Angi Vital Unavailable Unavailable Ciesa, Kinga Unavailable Unavailable Unavailable Karley Mckeon DO Unavailable Friend, Dr. Peterson Unavailable Ian Hanson Unavailable Slarb PROPERTY APPRAISER, Amaris Unavailable Unavailable Angi Vital LPN Unavailable Unavailable Unavailable Unavailable Dr. Karley Mckeon Primary Care Provider [phone] Dr. Karley Mckeon Referring Provider [phone] Dr. Ian Hanson Attending Provider Nurse, Surgery Attending Provider Unavailable Dr. Benjy Mccrary Attending Provider Friend, Dr. Peterson Referring Provider Dr. Linwood Arana Attending Provider Dr. Karley Mckeon Primary Care Provider Dr. Karley Mckeon Referring Provider Palma Salas Attending Provider Unavailable Friend, Dr. Peterson Attending Provider Friend, Dr. Peterson Other Provider [phone] Karley Mckeon DO Unavailable [phone] [place] UTILITY FORESTER, Gabrielle Unavailable Unavailable Martir PROPERTY APPRAISER, Tigre Unavailable Unavailable [place] UTILITY FORESTER, Kayela Unavailable Unavailable Yordy SALES OFFICE COORDINATOR, Agnes Unavailable [phone] Karley Mckeon DO Attending Unavailable Karley Mckeon DO Consulting Unavailable Flores Tavarez MA Unavailable Unavailable Friend, Nicholas Attending Unavailable Karley Mckeon Primary Care Unavailable Allergies Allergy Classification Reported Allergen(s) Allergy Type Date of Onset Reaction(s) Facility (20 sources) Codeine/Codeine Derivatives; Translations: [Codeine/Codein e Derivatives] allergy to substance [facility] Work Phone: (3 sources) Codeine Drug Allergy 2 Nausea [facility] Work Phone: (1 source) Codeine Drug Allergy 4 [facility] Repository Medications Current Medications Medication Drug Class(es) Dates Sig (Normalized) Sig (Original) ascorbic acid 500 mg oral tablet (3 sources) Vitamin C Start: 08-28-2021 take 1 tablet by mouth once daily Ascorbic Acid (Vitamin C) (Vitamin C) 500 mg Tablet Active 500 MG PO DAILY August 28, 2021 2:32pm cholecalciferol 0.025 mg oral capsule (3 sources) Vitamin D Start: 11-18-2019 take 25 ug by mouth once daily Cholecalciferol (Vitamin D3) Active 25 MCG PO DAILY November 18, 2019 7:01am famotidine 20 mg oral tablet (6 sources) Histamine-2 Receptor Antagonist Start: 11-18-2019 take 20 mg by mouth once daily Famotidine Active 20 MG PO DAILY November 18, 2019 6:34am Famotidine 20 mg qhs Active Therapeutic Multivitamin (3 sources) Start: 05-13-2017 Therapeutic Mu ltivitamin Active 1 EACH PO DAILY May 13, 2017 8:49am Start: 05-13-2017 Therapeutic Mu ltivitamin Active 1 EACH PO DAILY May 13, 2017 1:00am Zinc (6 sources) Start: 08-28-2021 take 50 mg by mouth once daily Zinc Active 50 MG PO DAILY August 28, 2021 2:32pm Start: 08-28-2021 take 50 mg by mouth once daily Zinc Active 50 MG PO DAILY August 28, 2021 12:00am Zinc 30 mg Activ e Completed/Discontinued Medications Medication Drug Class(es) Dates Sig (Normalized) Sig (Original) acyclovir 800 mg oral tablet (20 sources) Herpesvirus Nucleoside Analog DNA Polymerase Inhibitor, Herpes Simplex Virus Nucleoside Analog DNA Polymerase Inhibitor, Herpes Zoster Virus Nucleoside Analog DNA Polymerase Inhibitor Start: 05-27-2012 End: 2012 take 1 tablet by mouth once daily ACYCLOVIR, 800MG (Oral Tablet) 1 Tablet 5x daily for 7 days Quantity: 35 {Tablet} Refills: 0 Ordered: 27-May-2012 Jing Ratliff Start : 27-May-2012 End : 03-Jun-2012 Inactive [id number] 200 actuat albuterol 0.09 mg/actuat metered dose inhaler (20 sources) beta2-Adrenergic Agonist Start: 08-28-2021 take 1 puff(s) by inhalation every six hours Albuterol Sulfate Active 1 - 2 PUFF INHALATION EVERY 6 HOURS August 28, 2021 2:32pm Start: 08-28-2021 take 1 puff(s) by in halation every six hours Albuterol Sulfate Active 1 - 2 PUFF INHALATION EVERY 6 HOURS August 28, 2021 12:00am Start: 06-06-2020 End: 06-06-2020 Albuterol Sulfate Discontinu ed 2 INH INHALATION Q4H 1 June 06, 2020 10:06am June 06, 2020 10:07am Start: 06-06-2020 End: 06-06-2020 take 1 puff(s) by inhalation every six hours Albuterol Sulfate (Proair Hfa) 90 mcg/actuation HFA aerosol inhaler Discontinued 2 PUFF INHALATION EVERY 6 HOURS June 06, 2020 10:07am June 06, 2020 5:02pm Start: 11-12-2019 End: 06-06-2020 take 5 mg by inhalation every six hours albuterol sulfate 2.5 mg/0.5 mL solution for nebulization Discontinued 5 MG INHALATION EVERY 6 HOURS November 12, 2019 8:30am June 06, 2020 9:36am Start: 10-05-2019 take 1 mL by inhalat ion every six hours as needed albuterol sulfate 2.5 mg /3 mL (0.083 %) inhalation vial for nebulizer 1 (one) Milliliter q6 hrs prn for 90 days Quantity: 2 Kit Refills: 6 Ordered: 06-Jul-2022 Karley Mckeon DO, DO, Kathleen Start : 06-Jul-2022 Active Comments: please dispense QS 90 day Start: 09-13-2019 End: 06-06-2020 take 1 puff(s) by inhalation every four hours as needed Albuterol Sulfate Discontinued 2 PUFF INHALATION EVERY 4 HOURS NEEDED September 13, 2019 2:01pm June 06, 2020 9:36am Start: 09-07-2019 ProAir HFA 90 mcg/actuation inhalation HFA Aerosol with Adapter 2 (two) Aerosol Soln q 4-6 hrs prn for 90 days Quantity: 3 Kit Refills: 3 Ordered: 06-Jul-2022 Karley Mckeon DO, DO, Kathleen Start : 06-Jul-2022 Active Comments: please dispense 90 day supply Start: 09-07-2019 ProAir HFA 108 (90 Base) MCG/ACT Inhalation Aerosol Solution 2 (two) Aerosol Soln q 4-6 hrs prn for 0 days Quantity: 1 {Inhaler} Refills: 3 Ordered: 07-Sep-2019 Karley Mckeon DO, DO, Kathleen Start : 07-Sep-2019 Active Start: 05-02-2015 PROAIR HFA, 10 8 (90 Base)MCG/ACT (Inhalation Aerosol Solution) 2 (two) Aerosol Soln q 4-6 hrs prn for 0 days Quantity: 1 {Inhaler} Refills: 3 Ordered: 02-May-2015 Karley Mckeon DO, DO, Kathleen Start : 02-May-2015 Active Start: 02-20-2011 End: 09-07-2019 albuterol sulfate 0.63 mg/3 mL solution for nebulization (inhalation) MDI 2 Powder Q4-6H - PRN for 30 days Quantity: 1 {Powder} Refills: 3 Ordered: 20-Feb-2011 Stem Dryer Maintainer , System Start : 20-Feb-2011 End : 07-Sep-2019 Discontinued Comments: This order discontinued per [facility]. Start: 02-20-2011 End: 09-07-2019 ALBUTEROL (Powder) MDI 2 Pow nida Q4-6H - PRN for 30 days Quantity: 1 {Powder} Refills: 3 Ordered: 20-Feb-2011 Brigitte Robles RN Start : 20-Feb-2011 End : 07-Sep-2019 Discontinued Comments: This order discontinued per [facility]. Start: 02-20-2011 ALBUTEROL (Pow nida) MDI 2 Powder Q4-6H - PRN for 30 days Quantity: 1 {Powder} Refills: 3 Ordered: 20-Feb-2011 Neelam Anandnifer Start : 20-Feb-2011 Active Comment on above: This order discontin ued per [facility]. please dispense QS 9 0 day please dispense 90 d ay supply amoxicillin 875 mg / clavulanate 125 mg oral tablet (20 sources) Penicillin-class Antibacterial Start: 3 End: 3 take 1 tablet by mouth every twelve hours amoxicillin-pot clavulanate 875-125 mg oral tablet 1 Tablet every 12 hours for 10 days Quantity: 20 {Tablet} Refills: 0 Ordered: 04-Sep-2022 Yordy HUSTON Agnes Start : 04-Sep-2022 End : 14-Sep-2022 Inactive Start: 04-26-2020 End: 05-10-2020 take 1 tablet by mouth twice daily Augmentin 500-125 MG Oral Tablet 1 (one) Tablet bid for 14 days Quantity: 28 {Tablet} Refills: 0 Ordered: 26-Apr-2020 Jing Ratliff Start : 26-Apr-2020 End : 10-May-2020 Inactive Start: 09-13-2019 End: 11-12-2019 Amoxicillin-Pot Clavulanate Discontinued 1 EACH PO TWICE A DAY September 13, 2019 2:01pm November 12, 2019 8:29am Start: 05-27-2015 End: 09-23-2019 take 1 tablet by mouth twice daily AUGMENTIN, 875-125MG (Oral Tablet) 1 (one) Tablet bid for 0 days Quantity: 28 {Tablet} Refills: 0 Ordered: 27-May-2015 Brigitte Robles RN Start : 27-May-2015 End : 07-Sep-2019 Discontinued Comments: This order discontinued per [facility]. Comment on above: This order discontin ued per [facility]. azithromycin 250 mg oral tablet (20 sources) Macrolide Antimicrobial Start: 10-10-19 14 End: 05-02-20 15 ZITHROMAX Z-ABRAHAN, 250MG (Oral Tablet) 1 (one) Tablet Tablet TAD for 0 days Quantity: 1 {Package} Refills: 0 Ordered: 02-May-2015 Brigitte Robles RN Start : 09-Oct-2013 End : 02-May-2015 Inactive Budesonide-Formotero l (20 sources) Corticosteroid, beta2-Adrenergic Agonist Start: 10-12-19 End: 10-19-19 take 1 puff(s) by inhalation twice daily Budesonide-Formoter ol (Symbicort) 160-4.5 mcg/actuation HFA aerosol inhaler Discontinued 2 PUFF INHALATION TWICE A DAY October 11, 2021 12:53pm October 18, 2021 10:34am Start: 10-11-2021 End: 10-18-2021 take 1 puff(s) by inhalation twice daily Budesonide-Formoterol (Symbicort) 160-4.5 mcg/actuation HFA aerosol inhaler Discontinued 2 PUFF INHALATION TWICE A DAY October 11, 2021 12:00am October 18, 2021 10:34am Start: 07-24-2021 End: 07-24-2021 take 1 puff(s) by inhalation twice daily Symbicort 160-4.5 MCG/ACT Inhalation Aerosol 1 (one) Puff bid for 0 days Quantity: 1 {Unspecified} Refills: 0 Ordered: 24-Jul-2021 Karley Mckeon DO, DO, Kathleen Start : 24-Jul-2021 End : 24-Jul-2021 Discontinued Start: 07-24-2021 End: 07-24-2021 take 1 puff(s) by inhalation twice daily Symbicort 160-4.5 MCG/ACT Inhalation Aerosol 1 (one) Puff bid for 0 days Quantity: 1 {Unspecified} Refills: 0 Ordered: 24-Jul-2021 Karley Mckeon DO, DO, Kathleen Start : 24-Jul-2021 End : 24-Jul-2021 Discontinued Start: 11-18-2019 End: 06-06-2020 take 1 puff(s) by inhalation twice daily Budesonide-Formoterol (Symbicort) 160-4.5 mcg/actuation HFA aerosol inhaler Discontinued 2 PUFF INHALATION TWICE A DAY 10.2 November 18, 2019 7:17am June 06, 2020 9:36am Start: 10-22-2019 take 1 puff(s) by in halation twice daily Symbicort 160-4.5 MCG/ACT Inhalation Aerosol 1 (one) Puff bid for 0 days Quantity: 1 {Inhaler} Refills: 0 Ordered: 26-Apr-2020 Angi Vital LPN Start : 22-Oct-2019 Active cephalexin 500 mg oral tablet (16 sources) Cephalosporin Antibacterial Start: 04-13-2022 End: 04-18-2022 Cephalexin 500 MG Oral Tablet 1 (one) Tablet twice daily for 5 days for 5 days Quantity: 10 {Tablet} Refills: 0 Ordered: 13-Apr-2022 Agnes Scales CNP Start : 13-Apr-2022 End : 18-Apr-2022 Inactive 24 hr clarithromycin 500 mg extended release oral tablet (20 sources) Macrolide Antimicrobial Start: 07-18-2006 End: 07-28-2010 take 2 tablets by mouth once daily BIAXIN XL PAC, 500MG (Oral Tablet Extended Release 24 Hour) 2 (two) Tablet ER 24HR Daily for 0 days Quantity: 20 {Tablet_ER_24HR} Refills: 0 Ordered: 28-Jul-2010 Cindy Pollack RN Start : 18-Jul-2006 End : 28-Jul-2010 Inactive Start: 07-18-2006 End: 07-28-2010 take 2 tablets by mouth once daily BIAXIN XL PAC, 500MG (Oral Tablet Extended Release 24 Hour) 2 (two) Tablet ER 24HR Daily for 0 days Quantity: 20 {Tablet_ER_24HR} Refills: 0 Ordered: 28-Jul-2010 Cindy Pollack LPN Start : 18-Jul-2006 End : 28-Jul-2010 Inactive clotrimazole 10 mg oral lozenge (20 sources) Azole Antifungal Start: 10-02-2019 End: 10-12-2019 Clotrimazole 10 MG Mouth/Throat Denise 1 (one) Denise 5x daily for 10 days Quantity: 50 {Denise} Refills: 0 Ordered: 02-Oct-2019 Cindy Pollack RN Start : 02-Oct-2019 End : 12-Oct-2019 Inactive dexlansoprazole 60 mg delayed release oral capsule (20 sources) Proton Pump Inhibitor Start: 10-22-2019 End: 10-22-2019 take 1 capsule by mouth once daily Dexilant 60 MG Oral Capsule Delayed Release 1 (one) Capsule qd for 0 days Quantity: 30 {Capsule} Refills: 2 Ordered: 22-Oct-2019 Gravius UTILITY FORESTER, Nalini Start : 22-Oct-2019 End : 22-Oct-2019 Discontinued doxepin hydrochloride 10 mg oral capsule (20 sources) Tricyclic Antidepressant End: 07-18-2006 take 2 capsules by mouth once at bedtime DOXEPIN HCL, 10MG (Oral Capsule) 2 Q HS for 0 days Refills: 0 Ordered: 18-Jul-2006 End : 18-Jul-2006 Discontinued levoFLOXacin 500 mg oral tablet (20 sources) Quinolone Antimicrobial Start: 10-02-2019 End: 10-12-2019 take 1 tablet by mouth once daily levoFLOXacin 500 MG Oral Tablet 1 (one) Tablet daily as directed for 10 days Quantity: 10 {Tablet} Refills: 0 Ordered: 02-Oct-2019 Cindy Pollack RN Start : 02-Oct-2019 End : 12-Oct-2019 Inactive Start: 07-28-2010 End: 05-27-2012 take 1 tablet by mouth once daily LEVAQUIN, 500MG (Oral Tablet) 1 Tablet daily for 0 days Quantity: 10 {Tablet} Refills: 0 Ordered: 27-May-2012 Start : 28-Jul-2010 End : 27-May-2012 Inactive loratadine 10 mg oral capsule (20 sources) Start: 10-05-2019 End: 05-15-2021 take 1 capsule by mouth once daily Claritin 10 MG Oral Capsule 1 (one) Capsule daily for 0 days Quantity: 90 {Capsule} Refills: 3 Ordered: 15-May-2021 Amaris Aragon LPN Start : 05-Oct-2019 End : 15-May-2021 Inactive Comments: OTC Loratadine 10 mg Active Comment on above: OTC metaxalone 800 mg oral tablet (20 sources) Start: 10-11-2021 take 800 mg by mouth once Metaxalone Active 800 MG PO ONCE October 11, 2021 12:53pm Start: 11-29-2021 take 1 tablet by con th three times daily as needed metaxalone 800 mg oral tablet 1 (one) Tablet tid prn for 0 days Quantity: 90 {Tablet} Refills: 1 Ordered: 06-Jul-2022 Linda DO Karley Linda ROSENTHAL Karley Start : 06-Jul-2022 Active Start: 06-14-2017 End: 09-07-2019 take 1 tablet by mouth three times daily as needed Metaxalone 800 MG Oral Tablet 1 (one) Tablet tid prn for 0 days Quantity: 90 {Tablet} Refills: 1 Ordered: 07-Sep-2019 Brigitte Robles RN Start : 14-Jun-2017 End : 07-Sep-2019 Inactive SAVELLA TITRATION PACK, 12.5 & 25 & 50MG (Oral Miscellaneous) (20 sources) Serotonin and Norepinephrine Reuptake Inhibitor Start: 2012 End: 06-25-2012 take 1 tablet by mouth twice daily SAVELLA, 50MG (Oral Tablet) 1 Tablet bid for 0 days Quantity: 60 {Tablet} Refills: 0 Ordered: 25-Jun-2012 Cindy Pollack RN Start : 03-Jun-2012 End : 25-Jun-2012 Inactive Start: 2012 End: 06-25-2012 SAVELLA TITRATION PACK, 12.5 & 25 & 50MG (Oral Miscellaneous) 1 Misc TAD for 0 days Quantity: 1 {Package(s)} Refills: 0 Ordered: 25-Jun-2012 Cindy Pollack RN Start : 03-Jun-2012 End : 25-Jun-2012 Inactive Start: 2012 End: 06-25-2012 SAVELLA TITRATION PACK, 12.5 & 25 & 50MG (Oral Miscellaneous) 1 Misc TAD for 0 days Quantity: 1 {Package(s)} Refills: 0 Ordered: 25-Jun-2012 Cindy Pollack LPN Start : 03-Jun-2012 End : 25-Jun-2012 Inactive mometasone furoate 0.05 mg/actuat metered dose nasal spray (20 sources) Corticosteroid Start: 10-09-2013 End: 09-07-2019 Nasonex 50 MCG/ACT Nasal Suspension 2 (two) Puff Puff daily for 0 days Quantity: 1 {Puff} Refills: 0 Ordered: 07-Sep-2019 Brigitte Robles RN Start : 09-Oct-2013 End : 07-Sep-2019 Inactive Start: 10-09-2013 NASONEX, 50MCG /ACT (Nasal Suspension) 2 (two) Puff Puff daily for 0 days Quantity: 1 {Puff} Refills: 0 Ordered: 27-May-2015 PushpaCecelia boo Start : 09-Oct-2013 Active MVI (3 sources) MVI Active naproxen 500 mg oral tablet (20 sources) Nonsteroidal Anti-inflammatory Drug Start: 5 End: 0 take 1 tablet by mouth twice daily NAPROSYN, 500MG (Oral Tablet) 1 (one) Tablet Tablet bid for 0 days Quantity: 20 {Tablet} Refills: 0 Ordered: 07-Sep-2019 Karley Mckeon DO, DO, Kathleen Start : 28-Mar-2015 End : 07-Sep-2019 Discontinued Comments: This order discontinued per [facility]. Comment on above: This order discontin ued per [facility]. ondansetron 8 mg oral tablet (20 sources) Serotonin-3 Receptor Antagonist Start: 5 End: 0 take 1 tablet by mouth every eight hours as needed Zofran 8 MG Oral Tablet 1 (one) Tablet Tablet q8h prn for 0 days Quantity: 10 {Tablet} Refills: 0 Ordered: 07-Sep-2019 Brigitte Robles RN Start : 28-Mar-2015 End : 07-Sep-2019 Inactive pantoprazole 40 mg delayed release oral tablet (20 sources) Proton Pump Inhibitor Start: 0 End: 2 take 1 tablet by mouth once daily Pantoprazole Sodium 40 MG Oral Tablet Delayed Release 1 (one) Tablet daily for 0 days Quantity: 30 {Tablet} Refills: 3 Ordered: 13-Apr-2022 Slarb Amaris PERERA Start : 22-Oct-2019 End : 13-Apr-2022 Inactive predniSONE 10 mg oral tablet (20 sources) Start: 3 predniSONE 10 mg oral tablet 1 Tablet As Directed;see taper instructions for 0 days Quantity: 21 {Tablet} Refills: 0 Ordered: 04-Sep-2022 Agnes Scales CNP Start : 04-Sep-2022 Active Start: 09-23-2019 End: 10-21-2019 predniSONE 20 MG Oral Tablet 1 (one) Tablet uad for 0 days Quantity: 14 {Tablet} Refills: 0 Ordered: 21-Oct-2019 Nalini Roberto CMA Start : 23-Sep-2019 End : 21-Oct-2019 Inactive Comments: pred 20mg one tab bid for 4-days then 1/2 tab bid for 4days then 1/2 tab qd for 4days then donecont rescue inhaler 3-4 times a day Start: 09-13-2019 End: 11-12-2019 take 20 mg by mouth once daily Prednisone Discontinued 20 MG PO DAILY September 13, 2019 2:01pm November 12, 2019 8:29am Start: 07-28-2010 End: 05-27-2012 take 1 tablet by mouth once daily PREDNISONE, 20MG (Oral Tablet) 1 (one) Tablet daily for 0 days Quantity: 7 {Tablet} Refills: 0 Ordered: 27-May-2012 Vijaya Liriano LPN Start : 28-Jul-2010 End : 27-May-2012 Inactive Comment on above: pred 20mg one tab bi d for 4-days then 1/2 tab bid for 4days then 1/2 tab qd for 4days then donecont rescue inhaler 3-4 times a day rizatriptan 10 mg disintegrating oral tablet (20 sources) Serotonin-1b and Serotonin-1d Receptor Agonist Start: 07-09-2022 take 1 tablet by mouth every hour Maxalt-INDEPENDENT FILM MAKER 10 mg oral Tablet,disintegra ting 1 (one) Tablet Disperse at onset of juarez : october repeat inone hr if no relief for 0 days Quantity: 10 {Tablet} Refills: 0 Ordered: 09-Jul-2022 Karley Mckeon DO, DO, Kathleen Start : 09-Jul-2022 Active Start: 10-11-2021 take 10 mg by mouth once Rizat riptan Active 10 MG PO ONCE October 11, 2021 12:53pm Start: 05-15-2021 take 1 tablet by con th every hour Maxalt-INDEPENDENT FILM MAKER 10 mg oral Tablet,disintegrating 1 (one) Tablet Disperse Tablet Disperse at immed onset of juarez : october repeat inone hr if no relief for 0 days Quantity: 10 {Tablet} Refills: 0 Ordered: 06-Jul-2022 Karley Mckeon DO, DO, Kathleen Start : 06-Jul-2022 Active Start: 04-21-2018 End: 09-07-2019 take 1 tablet by mouth every hour Maxalt-INDEPENDENT FILM MAKER 10 MG Oral Tablet Disintegrating 1 (one) Tablet Disperse Tablet Disperse at immed onset of juarez : may repeat inone hr if no relief for 0 days Quantity: 10 {Tablet} Refills: 0 Ordered: 07-Sep-2019 Brigitte Robles RN Start : 21-Apr-2018 End : 07-Sep-2019 Inactive 60 actuat tiotropium 0.34886 mg/actuat inhalation spray (9 sources) Anticholinergic Start: 12-22-2019 End: 10-04-2020 take 1 puff(s) by inhalation every twenty-four hours Tiotropium [place] (Spiriva Respimat) 1.25 mcg/actuation mist Discontinued 2 PUFF INHALATION Q24H July 13, 2020 12:03pm October 04, 2020 8:06am Vitamin C 1000 mg (3 sources) Vitamin C 1000 m g Active Vitamin D3 2000 IU (3 sources) Vitamin D3 2000 IU Active NEGATED: Highlighted row has not occurred!drug or medication (5 sources) No Known Histori melodie Medications NEGATED: Highlighted row has not occurred!No Known Historical Medications (3 sources) No Known Histori melodie Medications Problems Active Problems Problem Classification Problem Date Documented Da te Episodic/Chronic Acute bronchitis (20 sources) Acute bronchitis, unspecified; Translations: [Acute bronchitis with bronchospasm] 05-27-2015 Episodic Acute bronchitis (3 sources) Acute bronchitis Asthma (20 sources) Asthma; Translations: [Acute exacerbation of asthma] 05-27-2015 Chronic Comment on above: cold activate acting unusaual - ne cecily felt like this Cardiac dysrhythmias (20 sources) Cardiac arrhythmia, unspecified; Translations: [Cardiac arrhythmia] 07-28-2015 Chronic Comment on above: flutter at times as young when tired nothing ventricular so levaquin should not be issue Cardiac dysrhythmias (9 sources) Cardiac dysrhythmias Chronic obstructive pulmonary disease and bronchiectasis (20 sources) Bronchitis; Translations: [Bronchitis] 05-27-2015 Episodic Chronic obstructive pulmonary disease and bronchiectasis (20 sources) Chronic obstructive pulmonary disease and bronchiectasis E Codes: Adverse effects of medical drugs (20 sources) Vaccines adverse reaction; Translations: [Vaccine reaction] 04-13-2022 Episodic Comment on above: pneumonia vaccine , site reaction redness, itching, swelling Esophageal disorders (20 sources) Gastroesophageal reflux disease; Translations: [GERD (gastroesophageal reflux disease)] 10-22-2019 Chronic Comment on above: stop H2 janet otc and start ppi and see if makes a difference in sob, cough, and use of rescue inhaler Fever of unknown origin (20 sources) Fever; Translations: [Fever] Resolved: 1 10-22-2019 Episodic Comment on above: occassional spike to 99 Headache, including migraine (20 sources) Migraine; Translations: [Muscular headache ] 05-27-2015 Chronic Heart valve disorders (20 sources) Mitral valve prolapse; Translations: [Mitral valve prolapse] 05-27-2015 Chronic Immunizations and screening for infectious disease (20 sources) Need for prophylactic vaccination and inoculation against influenza; Translations: [Needs influenza immunization] 05-15-2021 Episodic Malaise and fatigue (20 sources) Fatigue; Translations: [Asthenia] Resolved: 2 10-22-2019 Episodic Mycoses (20 sources) Candidiasis of mouth; Translations: [Thrush] 10-22-2019 Episodic Comment on above: using clotrimezole a nd helping Nutritional deficiencies (20 sources) Vitamin D deficiency; Translations: [Vitamin D deficiency] 05-15-2021 Chronic Other circulatory disease (20 sources) Elevated blood-pressure reading without diagnosis of hypertension; Translations: [Blood pressure elevated without history of HTN] 05-27-2015 Episodic Comment on above: pain induced? 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; Translations: [Post-COVID syndrome] 05-15-2021 Chronic Other infections; including parasitic (20 sources) Post-viral disorder; 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 Other lower respiratory disease (20 sources) Cough; Translations: [Cough] Resolved: 9 05-02-2015 Episodic Comment on above: cxr normmal-- tested neg infante seeing Josephine think p ersistent asthmacxr normmal-- tested neg infante in past cxr normmal-- tested neg infante in past/ early days of start and presumed by dr donohue but was a negative dawson Other lower respiratory disease (20 sources) Lung mass; Translations: [Solitary pulmonary nodule] 10-22-2019 Episodic Other lower respiratory disease (20 sources) Dyspnea; Translations: [SOB (shortness of breath)] 10-22-2019 Episodic Comment on above: seeing dr Laly son n and will discuss post covid breathign chg adn fatigue/stamina Dr Hanson, post covi d breathing chg, fatigue/stamina Other lower respiratory disease (12 sources) Nodule of lung; Translations: [Lung nodule < 6cm on CT] 05-15-2021 Episodic Other lower respiratory disease (2 sources) Solitary pulmonary nodule; Translations: [Solitary pulmonary nodule] Episodic Other nervous system disorders (20 sources) Paresthesia; Translations: [Paresthesia] 05-27-2015 Episodic Comment on above: ? beginning of shing les vs back/nerve injury vs other Will start acyclovir, and treat as if shingles, pain around waist improved, got leg thigh pain also improving consider neuro workup if returns Other non-traumatic joint disorders (20 sources) Joint pain; Translations: [Pain in unspecified joint] Resolved: 9 05-27-2015 Episodic Comment on above: with back pain takes ibuprofen paola y since 10 yrs, savella did not work labs need drawn from - Other nutritional; endocrine; and metabolic disorders (10 sources) Body mass index 25-29 - overweight; Translations: [BMI 25.0-25.9,adult] 10-21-2019 Chronic Other nutritional; endocrine; and metabolic disorders (20 sources) Weight loss; Translations: [Weight loss] 10-22-2019 Episodic Comment on above: consider bronch if n ot better Other nutritional; endocrine; and metabolic disorders (19 sources) Body mass index 25-29 - overweight; Translations: [BMI 25.0-25.9,adult] 05-15-2021 Episodic Other nutritional; endocrine; and metabolic disorders (20 sources) Overweight in adulthood with body mass index of 25 or more but less than 30; Translations: [BMI 25.0-25.9,adult] 07-24-2021 Episodic Other screening for suspected conditions (not mental disorders or infectious disease) (20 sources) Patient encounter status; Translations: [Colon cancer screening (Renamed from Encounter for screening for malignant neoplasm of colon)] 05-15-2021 Episodic Other upper respiratory disease (20 sources) Allergic rhinitis; Translations: [Allergic rhinitis] 05-27-2015 Chronic Comment on above: on claritin and symb icort Other upper respiratory disease (20 sources) Seasonal allergy; Translations: [Seasonal allergies] 10-22-2019 Chronic Other upper respiratory infections (20 sources) Acute sinusitis; Translations: [Upper respiratory infection] 05-27-2015 Episodic Comment on above: atb and steroids, po st covid secondary infectionhaving some wheezing Residual codes; unclassified (5 sources) Needs influenza immunization; Translations: [Need for prophylactic vaccination and inoculation against influenza (Renamed from Need for immunization against influenza)] 03-04-2020 Episodic Residual codes; unclassified (20 sources) Body mass index 20-24 - normal; Translations: [BMI 24.0-24.9, adult] 05-15-2021 Episodic Residual codes; unclassified (20 sources) Non-smoker; Translations: [Non-smoker] 05-15-2021 Episodic Residual codes; unclassified (1 source) History finding; Translations: [Other specified health status] Episodic Unclassified (20 sources) Unclassified (20 sources) Non-smoker; Translations: [Non-smoker] 10-22-2019 Unclassified (5 sources) BMI 27.0-27.9,adult Unclassified (3 sources) Post-COVID syndrome Unclassified (3 sources) Colon cancer screening (Renamed from Encounter for screening for malignant neoplasm of colon) Unclassified (3 sources) Encounter for screening for malignant neoplasm of prostate (Renamed from Screening for prostate cancer) Unclassified (9 sources) BRONCHITIS, NOT SPECIFIED ACUTE OR CHRONIC (490.) Viral infection (20 sources) Disease caused by 2019-nCoV; Translations: [COVID] 08-28-2022 Episodic Comment on above: supportive care. rev iewed red flags, verbalized understanding. supportive care. tur tim bacterial now. Past or Other Problems Problem Classification Problem Date Documented Da te Episodic/Chronic Asthma (20 sources) Asthma Conditions associated with dizziness or vertigo (20 sources) Dizziness and giddiness; Translations: [Dizziness and giddiness] Resolved: 11-24-2008 05-25-2015 Episodic Comment on above: Vertigo Headache, including migraine (18 sources) Headache, including migraine Influenza (5 sources) Influenza Unclassified (18 sources) PARASTHESIA (782.0) Unclassified (9 sources) Blood pressure elevated without history of HTN Unclassified (15 sources) Sinusitis, acute Unclassified (18 sources) ARTHRALGIAS 719.40 Unclassified (13 sources) Immunity status testing; Translations: [Patient encounter status] 10-22-2019 Unclassified (20 sources) Body mass index 20-24 - normal; Translations: [BMI 24.0-24.9, adult] 10-22-2019 Unclassified (16 sources) Weak Unclassified (20 sources) BMI 25.0-25.9,adult Unclassified (16 sources) Thrush Unclassified (15 sources) Lung nodule < 6cm on CT Results Test Name Value Interpretation Reference Range Facility CALCIFEDIOL ([id number])Ordered B y: Trimmer Sorter on 05-15-2021 25-hydroxyvitamin D [Mass/Vol] 38.8 ng/mL Normal 30.0-100.0 [facility]; [facility] Work Phone: Comment on above: Vitamin D deficiency has been defined by the [place] of[place] and an Endocrine Society practice guideline as alevel of serum 25-OH vitamin D less than 20 ng/mL (1,2).The Endocrine Society went on to further define vitamin Dinsufficiency as a level between 21 and 29 ng/mL (2).1. IOM ([place] of Medicine). 2010. Dietary reference intakes for calcium and D. [place]: The National Academies Press.2. Xavier MF, Tien NC, Andrew JUAREZ, et al. Evaluation, treatment, and prevention of vitamin D deficiency: an Endocrine Society clinical practice guideline. JCEM. 2010; 96(7):1911-30. PATIENT NOT FASTINGP ERFORMED BY: [facility]coEast [facility] HospitalZbgeuh7900 [facility] [id number] PSA (PROSTATE SPECIFIC ANTIG EN) (V76.44)Ordered By: Trimmer Sorter on 05-15-2021 Prostate specific Ag [Mass/Vol] 1.4 ng/mL Normal 0.0-4.0 [facility]; [facility] Work Phone: Comment on above: [place] ECLIA methodol ogy. .According to the [place] [employer], Serum PSA shoulddecrease and remain at undetectable levels after radicalprostatectomy. The AUA defines biochemical recurrence as an initialPSA value 0.2 ng/mL or greater followed by a subsequent confirmatoryPSA value 0.2 ng/mL or greater.Values obtained with different assay methods or kits cannot be usedinterchangeably. Results cannot be interpreted as absolute evidenceof the presence or absence of malignant disease. PATIENT NOT FASTINGP ERFORMED BY: [employer]6370 [facility] [id number] CBC W/AUTO DIFF WBC ([id number])O rdered By: Trimmer Sorter on 10-21-2019 Basophils (Bld) [#/Vol] 0.0 {x10E3/uL} Normal 0.0-0.2 [facility] Work Phone: Comment on above: Test(s) 925433-VOKO- CoV-2 Antibody, IgGhas not been reviewed by the Food and Drug Administration.PATIENT NOT FASTINGPERFORMED BY: Lumi Shanghai70 [facility] [id number] BY: [employer] [id number] Basophils (Bld) [#/Vol] 0.0 10*3/uL Normal 0.0-0.2 [facility]; [facility] Work Phone: Comment on above: Test(s) 066280-PEYE- CoV-2 Antibody, IgGhas not been reviewed by the Food and Drug Administration.PATIENT NOT FASTINGPERFORMED BY: [employer]6370 [facility] [id number] BY: [employer] [id number] Basophils/100 WBC (Bld) 1 % Normal [facility] Work Phone: Comment on above: Test(s) 595811-UNBT- CoV-2 Antibody, IgGhas not been reviewed by the Food and Drug Administration.PATIENT NOT FASTINGPERFORMED BY: [employer] [id number] BY: [address] [id number] Eosinophils (Bld) [#/Vol] 0.0 {x10E3/uL} Normal 0.0-0.4 [facility] Work Phone: Comment on above: Test(s) 269249-TALM- CoV-2 Antibody, IgGhas not been reviewed by the Food and Drug Administration.PATIENT NOT FASTINGPERFORMED BY: [employer] [place] [id number] BY: [employer] [id number] Eosinophils (Bld) [#/Vol] 0.0 10*3/uL Normal 0.0-0.4 [facility]; [facility] Work Phone: Comment on above: Test(s) 501333-XTBE- CoV-2 Antibody, IgGhas not been reviewed by the Food and Drug Administration.PATIENT NOT FASTINGPERFORMED BY: [employer] [id number] BY: [address] [id number] Eosinophils/100 WBC (Bld) 1 % Normal [facility] Work Phone: Comment on above: Test(s) 133045-XMPF- CoV-2 Antibody, IgGhas not been reviewed by the Food and Drug Administration.PATIENT NOT FASTINGPERFORMED BY: [employer] [id number] BY: [address] [id number] Erythrocyte distribution width (RBC) [Ratio] 13.1 % Normal 11.6-15.4 [facility] Work Phone: Comment on above: Test(s) 626387-RXRD- CoV-2 Antibody, IgGhas not been reviewed by the Food and Drug Administration.PATIENT NOT FASTINGPERFORMED BY: [employer] PARTNERSlin6370 [facility] [id number] BY: [employer] [id number] Hematocrit (Bld) [Volume fraction] 48.6 % Normal 37.5-51.0 [facility] Work Phone: Comment on above: Test(s) 532854-BPVR- CoV-2 Antibody, IgGhas not been reviewed by the Food and Drug Administration.PATIENT NOT FASTINGPERFORMED BY: Lumi Shanghai[address] [place] [address] [id number] BY: [employer] [id number] Hemoglobin (Bld) [Mass/Vol] 15.7 g/dL Normal 13.0-17.7 [facility] Work Phone: Comment on above: Test(s) 906860-DHLR- CoV-2 Antibody, IgGhas not been reviewed by the Food and Drug Administration.PATIENT NOT FASTINGPERFORMED BY: [employer] [address] [id number] BY: [employer] [id number] Immature granulocytes (Bld) [#/Vol] 0.0 {x10E3/uL} Normal 0.0-0.1 [facility] Work Phone: Comment on above: Test(s) 476365-UHPT- CoV-2 Antibody, IgGhas not been reviewed by the Food and Drug Administration.PATIENT NOT FASTINGPERFORMED BY: [employer] [address] [id number] BY: [address] [id number] Immature granulocytes (Bld) [#/Vol] 0.0 10*3/uL Normal 0.0-0.1 [facility]; [facility] Work Phone: Comment on above: Test(s) 905604-OMRW- CoV-2 Antibody, IgGhas not been reviewed by the Food and Drug Administration.PATIENT NOT FASTINGPERFORMED BY: [employer] [id number] BY: [address] [id number] Immature granulocytes/100 WBC (Bld) 0 % Normal [facility] Work Phone: Comment on above: Test(s) 570093-XHIL- CoV-2 Antibody, IgGhas not been reviewed by the Food and Drug Administration.PATIENT NOT FASTINGPERFORMED BY: [employer] [id number] BY: [address] [id number] Lymphocytes (Bld) [#/Vol] 2.0 {x10E3/uL} Normal 0.7-3.1 [facility] Work Phone: Comment on above: Test(s) 972275-QXTW- CoV-2 Antibody, IgGhas not been reviewed by the Food and Drug Administration.PATIENT NOT FASTINGPERFORMED BY: [employer] [id number] BY: [address] [id number] Lymphocytes (Bld) [#/Vol] 2.0 10*3/uL Normal 0.7-3.1 [facility]; [facility] Work Phone: Comment on above: Test(s) 025916-KMCM- CoV-2 Antibody, IgGhas not been reviewed by the Food and Drug Administration.PATIENT NOT FASTINGPERFORMED BY: [employer] [id number] BY: [address] [id number] Lymphocytes/100 WBC (Bld) 35 % Normal [facility] Work Phone: Comment on above: Test(s) 685792-CBWD- CoV-2 Antibody, IgGhas not been reviewed by the Food and Drug Administration.PATIENT NOT FASTINGPERFORMED BY: [employer] Xkizry2240 [facility] [id number] BY: [employer] [id number] MCH (RBC) [Entitic mass] 30.5 pg Normal 26.6-33.0 [facility] Work Phone: Comment on above: Test(s) 210297-WLME- CoV-2 Antibody, IgGhas not been reviewed by the Food and Drug Administration.PATIENT NOT FASTINGPERFORMED BY: YR.MRKT [facility] [id number] BY: [employer] [id number] MCHC (RBC) [Mass/Vol] 32.3 g/dL Normal 31.5-35.7 [facility] Work Phone: Comment on above: Test(s) 342591-OJXX- CoV-2 Antibody, IgGhas not been reviewed by the Food and Drug Administration.PATIENT NOT FASTINGPERFORMED BY: AppsFlyerEast Mountain HospitalZwyemb4937[address] [place] [address] [id number] BY: [employer] [id number] MCV (RBC) [Entitic vol] 94 fL Normal 79-97 [facility] Work Phone: Comment on above: Test(s) 427385-WUQP- CoV-2 Antibody, IgGhas not been reviewed by the Food and Drug Administration.PATIENT NOT FASTINGPERFORMED BY: AppsFlyerEast Mountain HospitalPiekhd9649 [facility] [id number] BY: [employer] [id number] Monocytes (Bld) [#/Vol] 0.5 {x10E3/uL} Normal 0.1-0.9 [facility] Work Phone: Comment on above: Test(s) 945083-YKUU- CoV-2 Antibody, IgGhas not been reviewed by the Food and Drug Administration.PATIENT NOT FASTINGPERFORMED BY: [facility] [employer] TechnologiesEast Mountain HospitalPtxsjn9589 [facility] [id number] BY: [employer] [id number] Monocytes (Bld) [#/Vol] 0.5 10*3/uL Normal 0.1-0.9 [facility]; [facility] Work Phone: Comment on above: Test(s) 112169-DZCP- CoV-2 Antibody, IgGhas not been reviewed by the Food and Drug Administration.PATIENT NOT FASTINGPERFORMED BY: [employer] T[address] [id number] BY: [employer] [id number] Monocytes/100 WBC (Bld) 8 % Normal [facility] Work Phone: Comment on above: Test(s) 085912-FWZA- CoV-2 Antibody, IgGhas not been reviewed by the Food and Drug Administration.PATIENT NOT FASTINGPERFORMED BY: [employer] [id number] BY: [employer] [id number] Neutrophils (Bld) [#/Vol] 3.1 {x10E3/uL} Normal 1.4-7.0 [facility] Work Phone: Comment on above: Test(s) 377424-JPSV- CoV-2 Antibody, IgGhas not been reviewed by the Food and Drug Administration.PATIENT NOT FASTINGPERFORMED BY: [employer] [id number] BY: [address] [id number] Neutrophils (Bld) [#/Vol] 3.1 10*3/uL Normal 1.4-7.0 [facility]; [facility] Work Phone: Comment on above: Test(s) 972108-GBPJ- CoV-2 Antibody, IgGhas not been reviewed by the Food and Drug Administration.PATIENT NOT FASTINGPERFORMED BY: [employer] Fbxjvr9988 [facility] [id number] BY: [employer] [id number] Neutrophils/100 WBC (Bld) 55 % Normal [facility] Work Phone: Comment on above: Test(s) 297591-MPJB- CoV-2 Antibody, IgGhas not been reviewed by the Food and Drug Administration.PATIENT NOT FASTINGPERFORMED BY: Lumi Shanghai70 [facility] [id number] BY: [employer] [id number] Platelets (Bld) [#/Vol] 217 {x10E3/uL} Normal 150-450 [facility] Work Phone: Comment on above: Test(s) 235956-HRDI- CoV-2 Antibody, IgGhas not been reviewed by the Food and Drug Administration.PATIENT NOT FASTINGPERFORMED BY: [employer] Rnfark6368 [facility] [id number] BY: [employer] [id number] Platelets (Bld) [#/Vol] 217 10*3/uL Normal 150-450 [facility]; [facility] Work Phone: Comment on above: Test(s) 797047-KGSY- CoV-2 Antibody, IgGhas not been reviewed by the Food and Drug Administration.PATIENT NOT FASTINGPERFORMED BY: [employer] Hzrgrd9987 [facility] [id number] BY: [employer] [id number] RBC (Bld) [#/Vol] 5.15 {x10E6/uL} Normal 4.14-5.80 [facility] Work Phone: Comment on above: Test(s) 014908-FAHM- CoV-2 Antibody, IgGhas not been reviewed by the Food and Drug Administration.PATIENT NOT FASTINGPERFORMED BY: [employer] Febwtt5492 [facility] [id number] BY: [employer] [id number] RBC (Bld) [#/Vol] 5.15 10*6/uL Normal 4.14-5.80 [facility]; [facility] Work Phone: Comment on above: Test(s) 317714-WHMT- CoV-2 Antibody, IgGhas not been reviewed by the Food and Drug Administration.PATIENT NOT FASTINGPERFORMED BY: [employer] Byirok3539 [facility] [id number] BY: [employer] [id number] WBC (Bld) [#/Vol] 5.6 {x10E3/uL} Normal 3.4-10.8 [facility] Internal [facility] Work Phone: Comment on above: Test(s) 220149-RHGV- CoV-2 Antibody, IgGhas not been reviewed by the Food and Drug Administration.PATIENT NOT FASTINGPERFORMED BY: [employer] TechnologiesEast Mountain HospitalGfkzcn4553 [facility] [id number] BY: [employer] [id number] WBC (Bld) [#/Vol] 5.6 10*3/uL Normal 3.4-10.8 [facility]; [facility] Work Phone: Comment on above: Test(s) 300368-FWNK- CoV-2 Antibody, IgGhas not been reviewed by the Food and Drug Administration.PATIENT NOT FASTINGPERFORMED BY: [employer] TechnologiesEast Mountain HospitalAnyrgc0002 [facility] [id number] BY: [address] [id number] METABOLIC PANEL, COMPREHENSI VE (57612)Ordered By: Trimmer Sorter on 10-21-2019 Albumin [Mass/Vol] 4.6 g/dL Normal 3.8-4.9 [facility] Work Phone: Comment on above: Test(s) 656397-PHPN- CoV-2 Antibody, IgGhas not been reviewed by the Food and Drug Administration.PATIENT NOT FASTINGPERFORMED BY: [employer] Pvnbvg9904 [facility] [id number] BY: [employer] [id number] Albumin/Globulin [Mass ratio] 2.1 {ratio} Normal 1.2-2.2 [facility] Work Phone: Comment on above: Test(s) 081626-QZPK- CoV-2 Antibody, IgGhas not been reviewed by the Food and Drug Administration.PATIENT NOT FASTINGPERFORMED BY: [employer] Gttl[address] [id number] BY: [employer] [id number] ALP [Catalytic activity/Vol] 62 [iU]/L Normal 39-117 [facility] Work Phone: Comment on above: Test(s) 681032-FHZX- CoV-2 Antibody, IgGhas not been reviewed by the Food and Drug Administration.PATIENT NOT FASTINGPERFORMED BY: [employer] Qlywyi0650 [facility] [id number] BY: [employer] [id number] ALP [Catalytic activity/Vol] 62 U/L Normal 39-117 [facility]; [facility] Work Phone: Comment on above: Test(s) 438137-FXDG- CoV-2 Antibody, IgGhas not been reviewed by the Food and Drug Administration.PATIENT NOT FASTINGPERFORMED BY: [employer] TechnologiesHannah [place] 2454170 [facility] [id number] BY: [employer] [id number] ALT [Catalytic activity/Vol] 18 [iU]/L Normal 0-44 [facility] Work Phone: Comment on above: Test(s) 204244-WRAE- CoV-2 Antibody, IgGhas not been reviewed by the Food and Drug Administration.PATIENT NOT FASTINGPERFORMED BY: [employer] TechnologiesH[place] 2454170 [facility] [id number] BY: [address] [id number] ALT [Catalytic activity/Vol] 18 U/L Normal 0-44 [facility]; [facility] Work Phone: Comment on above: Test(s) 773130-KXPD- CoV-2 Antibody, IgGhas not been reviewed by the Food and Drug Administration.PATIENT NOT FASTINGPERFORMED BY: [employer] Xpoliw[address] [place] [address] [id number] BY: [employer] [id number] AST [Catalytic activity/Vol] 18 [iU]/L Normal 0-40 [facility] Work Phone: Comment on above: Test(s) 522733-VEDQ- CoV-2 Antibody, IgGhas not been reviewed by the Food and Drug Administration.PATIENT NOT FASTINGPERFORMED BY: [employer] Rbonwe5613 [facility] [id number] BY: [address] [id number] AST [Catalytic activity/Vol] 18 U/L Normal 0-40 [facility]; [facility] Work Phone: Comment on above: Test(s) 488889-FVBU- CoV-2 Antibody, IgGhas not been reviewed by the Food and Drug Administration.PATIENT NOT FASTINGPERFORMED BY: [employer] [id number] BY: [address] [id number] Bilirubin [Mass/Vol] 0.3 mg/dL Normal 0.0-1.[address] [facility] Internal Medicine Work Phone: Comment on above: Test(s) 713084-EHMR- CoV-2 Antibody, IgGhas not been reviewed by the Food and Drug Administration.PATIENT NOT FASTINGPERFORMED BY: Lumi Shanghai70 [facility] [id number] BY: [employer] [id number] Calcium [Mass/Vol] 9.4 mg/dL Normal 8.7-10.2 [facility] Internal Medicine Work Phone: Comment on above: Test(s) 074937-EEYQ- CoV-2 Antibody, IgGhas not been reviewed by the Food and Drug Administration.PATIENT NOT FASTINGPERFORMED BY: YR.MRKT [facility] [id number] BY: [employer] [id number] Chloride [Moles/Vol] 104 mmol/L Normal 96-106 [facility] Internal Medicine Work Phone: Comment on above: Test(s) 556651-YJTI- CoV-2 Antibody, IgGhas not been reviewed by the Food and Drug Administration.PATIENT NOT FASTINGPERFORMED BY: YR.MRKT [facility] [id number] BY: [employer] [id number] CO2 [Moles/Vol] 25 mmol/L Normal 20-29 [facility] Internal Medicine Work Phone: Comment on above: Test(s) 851340-DSLW- CoV-2 Antibody, IgGhas not been reviewed by the Food and Drug Administration.PATIENT NOT FASTINGPERFORMED BY: Lumi Shanghai70 [facility] [id number] BY: [employer] [id number] Creatinine [Mass/Vol] 0.98 mg/dL Normal 0.76-1.27 [facility] Work Phone: Comment on above: Test(s) 936381-TJQB- CoV-2 Antibody, IgGhas not been reviewed by the Food and Drug Administration.PATIENT NOT FASTINGPERFORMED BY: [employer] Fhqdhq5702 [facility] [id number] BY: [employer] [id number] GFR/1.73 sq M predicted among blacks CKD-EPI (S/P/Bld) [Vol rate/Area] 101 mL/min/1.73 Normal [facility] Work Phone: Comment on above: Test(s) 093649-STAA- CoV-2 Antibody, IgGhas not been reviewed by the Food and Drug Administration.PATIENT NOT FASTINGPERFORMED BY: Lumi Shanghai70 [facility] [id number] BY: [employer] [id number] GFR/1.73 sq M predicted among non-blacks CKD-EPI (S/P/Bld) [Vol rate/Area] 88 mL/min/1.73 Normal [facility] Work Phone: Comment on above: Test(s) 351323-FFNV- CoV-2 Antibody, IgGhas not been reviewed by the Food and Drug Administration.PATIENT NOT FASTINGPERFORMED BY: [employer] Jeaijp9769 [facility] [id number] BY: [employer] [id number] Globulin (S) [Mass/Vol] 2.2 g/dL Normal 1.5-4.5 [facility] Internal Medicine Work Phone: Comment on above: Test(s) 040444-QKPK- CoV-2 Antibody, IgGhas not been reviewed by the Food and Drug Administration.PATIENT NOT FASTINGPERFORMED BY: [employer] Dckrcj5474 [facility] [id number] BY: [address] [id number] Glucose [Mass/Vol] 97 mg/dL Normal 65-99 [facility] Internal Medicine Work Phone: Comment on above: Test(s) 424308-RYEW- CoV-2 Antibody, IgGhas not been reviewed by the Food and Drug Administration.PATIENT NOT FASTINGPERFORMED BY: Lumi Shanghai70 [facility] [id number] BY: [employer] [id number] Potassium [Moles/Vol] 4.7 mmol/L Normal 3.5-5.2 [facility] Work Phone: Comment on above: Test(s) 558057-LFNS- CoV-2 Antibody, IgGhas not been reviewed by the Food and Drug Administration.PATIENT NOT FASTINGPERFORMED BY: YR.MRKT [facility] [id number] BY: [employer] [id number] Protein [Mass/Vol] 6.8 g/dL Normal 6.0-8.5 [facility] Internal Medicine Work Phone: Comment on above: Test(s) 247894-NONA- CoV-2 Antibody, IgGhas not been reviewed by the Food and Drug Administration.PATIENT NOT FASTINGPERFORMED BY: 4FRONT PARTNERSlin[address] [place] [address] [id number] BY: [employer] [id number] Sodium [Moles/Vol] 144 mmol/L Normal 134-144 [facility] Internal Medicine Work Phone: Comment on above: Test(s) 080018-AHZT- CoV-2 Antibody, IgGhas not been reviewed by the Food and Drug Administration.PATIENT NOT FASTINGPERFORMED BY: Lumi Shanghai[address] [place] [address] [id number] BY: [employer] [id number] Urea nitrogen [Mass/Vol] 10 mg/dL Normal 6-24 [facility] Internal Medicine Work Phone: Comment on above: Test(s) 269853-TGET- CoV-2 Antibody, IgGhas not been reviewed by the Food and Drug Administration.PATIENT NOT FASTINGPERFORMED BY: [employer] TechnologiesEast Mountain HospitalNesoug9735 [facility] [id number] BY: [address] [id number] Urea nitrogen/Creatinine [Mass ratio] 10 mg/mg Normal 9-20 [facility] Work Phone: Comment on above: Test(s) 584537-SIFR- CoV-2 Antibody, IgGhas not been reviewed by the Food and Drug Administration.PATIENT NOT FASTINGPERFORMED BY: [employer] The[employer] TechnologiesEast Mountain HospitalDphunw1618 [facility] [id number] BY: [address] [id number] SARS-CoV-2 Antibody, IgGOrde red By: Trimmer Sorter on 10-21-2019 SARS-CoV-2 Antibody, IgG Negative Normal [facility] Work Phone: Comment on above: This sample does not contain detectable SARS-CoV-2 IgG antibodies.This negative result does not rule out SARS-CoV-2 infection.Correlation with epidemiologic risk factors and other clinical andlaboratory findings is recommended. Serologic results should not beused as the sole basis to diagnose or exclude recent DSGS-KhV-8skmcmnalq.This assay was performed using the Jara SARS-CoV-2 IgG assay. Test(s) 530132-DESV- CoV-2 Antibody, IgGhas not been reviewed by the Food and Drug Administration.PATIENT NOT FASTINGPERFORMED BY: [employer] Zripkh4780 [facility] [id number] BY: [address] [id number] SARS-CoV-2 Antibody, IgG Negative Normal [facility]; [facility] Work Phone: Comment on above: This sample does not contain detectable SARS-CoV-2 IgG antibodies.This negative result does not rule out SARS-CoV-2 infection.Correlation with epidemiologic risk factors and other clinical andlaboratory findings is recommended. Serologic results should not beused as the sole basis to diagnose or exclude recent LDTO-GxV-8xngaaxvme.This assay was performed using the Jara SARS-CoV-2 IgG assay. Test(s) 596641-CYAZ- CoV-2 Antibody, IgGhas not been reviewed by the Food and Drug Administration.PATIENT NOT FASTINGPERFORMED BY: [employer] TechnologiesEast Mountain HospitalTuiggg9623 [facility] [id number] BY: [place] 668767 [facility] [id number] TSH ([id number])Ordered By: adMingle - Share Your Passion!e m Stem Dryer Maintainer on 10-21-2019 TSH Qn 0.809 {uIU/mL} Normal 0.450-4.500 [facility] Internal Medicine Work Phone: Comment on above: Test(s) 790103-RERY- CoV-2 Antibody, IgGhas not been reviewed by the Food and Drug Administration.PATIENT NOT FASTINGPERFORMED BY: [employer] TechnologiesEast Mountain HospitalAxjjof5802 [facility] [id number] BY: [employer] [id number] 2019 Novel Coronavirus (COVI D-19), PATT (42103)Ordered By: Trimmer Sorter on 10-05-2019 SARS-CoV-2 (COVID-19) RNA PATT+probe Ql (Unsp spec) Not detected Normal [facility]; [facility] Work Phone: Comment on above: Testing was performe d using the malena(R) SARS-CoV-2 test.This test was developed and its performance characteristics determinedby [employer]. This test has not been FDA cleared orapproved. This test has been authorized by FDA under an Emergency UseAuthorization (EUA). This test is only authorized for the duration oftime the declaration that circumstances exist justifying theauthorization of the emergency use of in vitro diagnostic tests fordetection of SARS-CoV-2 virus and/or diagnosis of COVID-19 infectionunder section 564(b)(1) of the Act, 21 U.S.C. 360bbb-3(b)(1), unlessthe authorization is terminated or revoked sooner. PATIENT NOT FASTINGP ERFORMED BY: [employer] [id number] Information: NASAL 2019 Novel Coronavirus (COVID-19), PATT (18714) Not Detected Normal [facility] Work Phone: Comment on above: Testing was performe d using the malnea(R) SARS-CoV-2 test.This test was developed and its performance characteristics determinedby [employer]. This test has not been FDA cleared orapproved. This test has been authorized by FDA under an Emergency UseAuthorization (EUA). This test is only authorized for the duration oftime the declaration that circumstances exist justifying theauthorization of the emergency use of in vitro diagnostic tests fordetection of SARS-CoV-2 virus and/or diagnosis of COVID-19 infectionunder section 564(b)(1) of the Act, 21 U.S.C. 360bbb-3(b)(1), unlessthe authorization is terminated or revoked sooner. PATIENT NOT FASTINGP ERFORMED BY: [address] [id number] Information: NASAL Basic Metabolic Profile (BMP )Ordered By: Trimmer Sorter on 05-13-2017 Basic metabolic 2000 panel 8.7 mg/dL Normal 8.5-10.1 [facility] Work Phone: Basic metabolic 2000 panel 13.3 {RATIO} Normal 10-20 [facility] Work Phone: Basic metabolic 2000 panel 84.31 ml/min Normal [facility] Work Phone: Basic metabolic 2000 panel 104 mL/min Normal [facility] Work Phone: Comment on above: GFR Calc Basic metabolic 2000 panel 86 mL/min Normal [facility] Work Phone: Comment on above: Non- GFR Calc Basic metabolic 2000 panel 0.98 mg/dL Normal 0.70-1.30 [facility] Work Phone: Comment on above: The validity of the calculated GFR AND GFRAA in patients over70 years has not been determined. Clinical correlation isessential. Basic metabolic 2000 panel 13 mg/dL Normal 7-18 [facility] Work Phone: Basic metabolic 1999 panel 106 mg/dL Normal 70-110 [facility] Work Phone: Basic metabolic 1999 panel 26.0 mmol/L Normal 21.0-32.0 [facility] Work Phone: Basic metabolic 1999 panel 3.7 mmol/L Normal 3.5-5.1 [facility] Work Phone: Basic metabolic 1999 panel 142 mmol/L Normal 136-145 [facility] Work Phone: Basic metabolic 1999 panel 108 mmol/L Abnormal 98-107 [facility] Work Phone: Basic metabolic 1999 panel 8 1 Normal 5-15 [facility] Work Phone: CBC W/Diff, AutomatedOrdered By: Trimmer Sorter on 05-13-2017 Absolute Lymph 1.68 {X10_3/ul} Normal 0.83-4.51 Compr ehensive Internal Medicine Work Phone: Absolute Neut 6.2 {X10_3/uL} Normal 2.0-7.7 Compreh ensive Internal Medicine Work Phone: Basophils/100 WBC Auto (Bld) 0.2 % Normal 0-1 [facility] Work Phone: Eosinophils/100 WBC Auto (Bld) 0.0 % Normal 0-5 [facility] Work Phone: Erythrocyte distribution width Auto Ratio (RBC) 12.7 % Normal 11.6-14.6 [facility] Internal Medicine Work Phone: Hematocrit Auto Volume Fraction (Bld) 45.6 % Normal 40-54 [facility] Work Phone: Hemoglobin mass conc (Bld) 15.3 g/dL Normal 13.0-16.5 [facility] Work Phone: IM GRAN % 0.100 % Normal 0.0-0.9 [facility] Internal Medicine Work Phone: Comment on above: IG% - Immature Granu locytes (promyelocytes, myelocytes andmetamyelocytes) > 1% indicates that a LEFT SHIFT is Present. Lymphocytes/100 WBC Auto (Bld) 20.4 % Normal 19-41 [facility] Work Phone: MCH Auto Entitic mass (RBC) 30.8 pg Normal 27.0-32.0 [facility] Work Phone: MCHC Auto mass conc (RBC) 33.6 {g/gl} Normal 32-36 [facility] Work Phone: MCV Auto Entitic volume (RBC) 91.8 fL Normal 80-94 [facility] Work Phone: Monocytes/100 WBC Auto (Bld) 3.5 % Normal 0-10 [facility] Work Phone: Neutrophils/100 WBC Auto (Bld) 75.8 % Abnormal 47-70 [facility] Work Phone: Platelet mean volume Auto Entitic volume (Bld) 11.3 fL Normal 6.2-12.0 [facility] Work Phone: Platelets Auto #/vol (Bld) 202 10*3/uL Normal 150-450 [facility] Work Phone: RBC Auto #/vol (Bld) 4.97 {M/mm3} Normal 4.6-6.2 Co mprehensive Internal Medicine Work Phone: RDW SD 42.5 fL Normal 35.1-43.9 [facility] Work Phone: WBC Auto #/vol (Bld) 8.2 10*3/uL Normal 4.4-11.0 [facility] prehensive Internal Medicine Work Phone: Troponin-IOrdered By: Trimmer Sorter on 05-13-2017 Troponin I.cardiac mass conc ng/mL Normal [facility] Internal Medicine Work Phone: Comment on above: TROPONIN-I EXPECTED VALUES <0.05 NEGATIVE 0.06 - 0.59 AT RISK OF [place] > OR = 0.60 SUGGEST [place] GlucoseOrdered By: Chava pires on 11-29-2015 Glucose mass conc 86 mg/dL Normal 70-110 [facility]pre[facility] Internal Medicine Work Phone: Lipid ProfileOrdered By: Judson tem Stem Dryer Maintainer on 11-29-2015 Cholesterol in HDL mass conc 59 mg/dL Normal [facility] Work Phone: Comment on above: The drugs N-Acetylcy steine and Metamizole may falsely deressthis assay. Reference Range HDL <40 mg/dL Low HDL Cholesterol HDL >or= 60 mg/dL High HDL Cholesterol Cholesterol in LDL mass conc 88 mg/dL Normal 0-130 [facility] Internal Medicine Work Phone: Cholesterol in VLDL mass conc 16 mg/dL Normal 5-40 [facility] Work Phone: Cholesterol mass conc 163 mg/dL Normal [facility] Internal Medicine Work Phone: Comment on above: <200 mg/dL Desirable 200-240 mg/dL Borderline >240 mg/dL High Risk Triglyceride mass conc 79 mg/dL Normal [facility] Internal Medicine Work Phone: Comment on above: The drugs N-Acetylcy steine and Metamizole may falsely deressthis assay.Serum Triglycerides Reference Interval Normal <150 mg/dL Borderline high 150 - 199 mg/dL High 200 - 499 mg/dL Very High > or = 500 mg/dL PSA,Total - Annual ScreenOrd ered By: Trimmer Sorter on 11-29-2015 Prostate specific Ag mass conc 1.07 ng/mL Normal 0.00-4.00 [facility] Internal Medicine Work Phone: Comment on above: This test was perfor med using the TPSA assay method for the[employer]ion[employer]oe[employer] chemistry system. Values obtained with differentassay methods cannot be used interchangably.When changing PSA assays in the course of monitoring apatient, additional sequential testing should be carriedout to confirm baseline values. C-Reactive Protein, QuantOrd ered By: Trimmer Sorter on 07-15-2012 CRP mass conc 3.0 mg/L Normal 0.0-4.9 Comprehensi Internal Medicine Work Phone: CCP Antibodies IgG/IgAOrdere d By: Trimmer Sorter on 07-15-2012 Cyclic citrullinated peptide IgA+IgG IA Qn 3 {units} Normal 0-19 [facility] Internal Medicine Work Phone: Comment on above: Negative <20 Weak po sitive 20 - 39 Moderate positive 40 - 59 Strong positive >59 Rheumatoid Arthritis FactorO rdered By: Trimmer Sorter on 07-15-2012 Rheumatoid factor Qn 11.2 {IU/mL} Normal 0.0-13.9 Co mprehselect medical specialty [facility] Internal [facility] Work Phone: Sjogren's Ab, Anti-SS-A/-SS- BOrdered By: Trimmer Sorter on 07-15-2012 Sjogrens syndrome-A extractable nuclear Ab Qn (S) <0.2 Normal 0.0-0.9 [facility] Work Phone: Sjogrens syndrome-B extractable nuclear Ab Qn (S) <0.2 Normal 0.0-0.9 [facility] Work Phone: CHRISTY (ANTINUCLEAR ANTIBODY) ( [id number])Ordered By: Trimmer Sorter on 05-27-2012 Nuclear Ab Ql (S) Negative Normal Compreh ensive Internal Medicine Work Phone: Comment on above: PATIENT NOT FASTINGP ERFORMED BY: YVES [facility] Vvidhn3117 [address] [employer] Generation ComputerUNC Health Lenoir [id number] Nuclear Ab Ql (S) Negative Normal Compreh ensive Internal Medicine; [facility] Work Phone: Comment on above: PATIENT NOT FASTINGP ERFORMED BY: YVES [facility] Ooomqq2385 [address] [facility] [id number] CBC & PLATELETS (AUTO) ([id number])Ordered By: Trimmer Sorter on 05-27-2012 Erythrocyte distribution width (RBC) [Ratio] 12.7 % Normal 12.3-15.4 [facility] Work Phone: Comment on above: PATIENT NOT FASTINGP ERFORMED BY: YVES [facility] Hkvnxi6718 [address] [facility] [id number] Erythrocyte distribution width Auto Ratio (RBC) 12.7 % Normal 12.3-15.4 [facility] Work Phone: Hematocrit (Bld) [Volume fraction] 46.3 % Normal 37.5-51.0 [facility] Work Phone: Comment on above: PATIENT NOT FASTINGP ERFORMED BY: YVES [facility] Xesoxp2753 [address] [facility] [id number] Hematocrit Auto Volume Fraction (Bld) 46.3 % Normal 37.5-51.0 [facility] Work Phone: Hemoglobin mass conc (Bld) 15.4 g/dL Normal 12.6-17.7 [facility] Work Phone: Comment on above: PATIENT NOT FASTINGP ERFORMED BY: CB [facility] Xrfefj0650 [address] RoadAtrium [facility] Centerin [place] [id number] MCH (RBC) [Entitic mass] 30.1 pg Normal 26.6-33.0 [facility] Work Phone: Comment on above: PATIENT NOT FASTINGP ERFORMED BY: CB [facility] Pfoqgy4063 [address] RoadDuin [place] [id number] MCH Auto Entitic mass (RBC) 30.1 pg Normal 26.6-33.0 [facility] Work Phone: MCHC (RBC) [Mass/Vol] 33.3 g/dL Normal 31.5-35.7 [facility] Work Phone: Comment on above: PATIENT NOT FASTINGP ERFORMED BY: CB [facility] Toklst5150 [address] [employer] ComputerUNC Health Lenoir [id number] MCHC Auto mass conc (RBC) 33.3 g/dL Normal 31.5-35.7 [facility] Work Phone: MCV (RBC) [Entitic vol] 91 fL Normal 79-97 [facility] Work Phone: Comment on above: PATIENT NOT FASTINGP ERFORMED BY: CB [facility] Kdjeov7692 [address] [employer] ComputerUNC Health Lenoir [id number] MCV Auto Entitic volume (RBC) 91 fL Normal 79-97 [facility] Work Phone: Platelets (Bld) [#/Vol] 202 {x10E3/uL} Normal 140-415 [facility] Work Phone: Comment on above: PATIENT NOT FASTINGP ERFORMED BY: CB [facility] Yfmzla6180 [address] RoadDuin [place] [id number] Platelets (Bld) [#/Vol] 202 10*3/uL Normal 140-415 [facility]; [facility] Work Phone: Comment on above: PATIENT NOT FASTINGP ERFORMED BY: CB [facility] Onqvda6033 [address] RoadDublin [place] [id number] Platelets Auto #/vol (Bld) 202 {x10E3/uL} Normal 140-415 [facility] Work Phone: RBC (Bld) [#/Vol] 5.11 {x10E6/uL} Normal 4.14-5.80 [facility] Internal Medicine Work Phone: Comment on above: PATIENT NOT FASTINGP ERFORMED BY: CB [facility] Gexlzf9166 [address] RoadDublin [place] [id number] RBC (Bld) [#/Vol] 5.11 10*6/uL Normal 4.14-5.80 [facility] Internal Medicine; [facility] Work Phone: Comment on above: PATIENT NOT FASTINGP ERFORMED BY: CB [facility] Nrutvm9685 [address] RoadAtrium Health [facility] Centerin [place] [id number] RBC Auto #/vol (Bld) 5.11 {x10E6/uL} Normal 4.14-5.80 [facility] Work Phone: WBC (Bld) [#/Vol] 8.2 {x10E3/uL} Normal 4.0-10.5 [facility] Internal Medicine Work Phone: Comment on above: PATIENT NOT FASTINGP ERFORMED BY: CB [facility] Hatkfw8231 [address] [facility] [id number] WBC (Bld) [#/Vol] 8.2 10*3/uL Normal 4.0-10.5 [facility] Internal Medicine; [facility] Work Phone: Comment on above: PATIENT NOT FASTINGP ERFORMED BY: CB [facility] Rghjmm1514 [address] RoadDublin [place] [id number] WBC Auto #/vol (Bld) 8.2 {x10E3/uL} Normal 4.0-10.5 [facility] Work Phone: METABOLIC PANEL, COMPREHENSI VE ([id number])Ordered By: Trimmer Sorter on 05-27-2012 Albumin mass conc 4.5 g/dL Normal 3.5-5.5 [facility] Internal Medicine Work Phone: Comment on above: PATIENT NOT FASTINGP ERFORMED BY: YVES [facility] Bdbtoz3966 [address] RoadDublin [place] [id number] Albumin/Globulin mass ratio 1.7 {ratio} Normal 1.1-2.5 [facility] Internal Medicine Work Phone: Comment on above: PATIENT NOT FASTINGP ERFORMED BY: CB [facility] Qcmnet4296 [address] RoadDublin [place] [id number] ALP [Catalytic activity/Vol] 65 U/L Normal 25-150 [facility]; [facility] Work Phone: Comment on above: PATIENT NOT FASTINGP ERFORMED BY: CB [facility] Udehep2088 [address] RoadDublin [place] [id number] ALP enzyme act/vol 65 [iU]/L Normal 25-150 [facility] Internal Medicine Work Phone: Comment on above: PATIENT NOT FASTINGP ERFORMED BY: CB [facility] Yjbbge9844 [address] RoadDublin [place] [id number] ALT [Catalytic activity/Vol] 12 U/L Normal 0-44 [facility]; [facility] Internal Medicine Work Phone: Comment on above: PATIENT NOT FASTINGP ERFORMED BY: CB [facility] Tqisjp9036 [address] RoadDublin [place] [id number] ALT enzyme act/vol 12 [iU]/L Normal 0-44 [facility] Internal Medicine Work Phone: Comment on above: PATIENT NOT FASTINGP ERFORMED BY: CB [facility] Uaterl3416 [address] RoadDublin [place] [id number] AST [Catalytic activity/Vol] 20 U/L Normal 0-40 [facility]; [facility] Internal Medicine Work Phone: Comment on above: PATIENT NOT FASTINGP ERFORMED BY: CB [facility] Jjtvbt0396 [address] RoadDublin [place] [id number] AST enzyme act/vol 20 [iU]/L Normal 0-40 Compre hensive Internal Medicine Work Phone: Comment on above: PATIENT NOT FASTINGP ERFORMED BY: YVES [facility] Bpqrzd3947 [address] RoadDublin [place] [id number] Bilirubin mass conc 0.4 mg/dL Normal 0.0-1.2 Compr ehensive Internal Medicine Work Phone: Comment on above: PATIENT NOT FASTINGP ERFORMED BY: CB [facility] Lcjbhl6431 [address]blin [place] [id number] Calcium mass conc 9.3 mg/dL Normal 8.7-10.2 Compreh ensive Internal Medicine Work Phone: Comment on above: PATIENT NOT FASTINGP ERFORMED BY: CB [facility] Sypvlc3394 [address] [facility] [id number] Chloride molar conc 102 mmol/L Normal 97-108 Compr [facility] Internal Medicine Work Phone: Comment on above: PATIENT NOT FASTINGP ERFORMED BY: YVES LabCojohn paul VillarrealDwmaqp3767 [address] [facility] [id number] CO2 molar conc 26 mmol/L Normal 20-32 Comprehens jaimie Internal Medicine Work Phone: Comment on above: PATIENT NOT FASTINGP ERFORMED BY: YVES LabCarlo VillarrealFpejtf7836 [address] [facility] [id number] Creatinine mass conc 1.00 mg/dL Normal 0.76-1.[address] [facility] Internal Medicine Work Phone: Comment on above: PATIENT NOT FASTINGP ERFORMED BY: CB [facility] Zmbgsg2916 [address] RoadUNC Health Lenoir [id number] GFR/1.73 sq M predicted among blacks CKD-EPI vol rate/area (S/P/Bld) 105 mL/min/1.73 Normal Comprehensiv e Internal Medicine Work Phone: Comment on above: PATIENT NOT FASTINGP ERFORMED BY: CB [facility] Vpqxfo8069 [address]bl[address] [place] [id number] GFR/1.73 sq M predicted among non-blacks CKD-EPI vol rate/area (S/P/Bld) 90 mL/min/1.73 Normal [facility] Work Phone: Comment on above: PATIENT NOT FASTINGP ERFORMED BY: CB [facility] Kzyqtl9941 [address] RoadDublin [place] [id number] Globulin (S) [Mass/Vol] 2.6 g/dL Normal 1.5-4.5 [facility] Work Phone: Comment on above: PATIENT NOT FASTINGP ERFORMED BY: CB [facility] Ypsjtq4912 [address] RoadFredericksburg [place] [id number] Globulin Calculated mass conc (S) 2.6 g/dL Normal 1.5-4.5 [facility] Work Phone: Glucose mass conc 98 mg/dL Normal 65-99 Compreh ensive Internal Medicine Work Phone: Comment on above: PATIENT NOT FASTINGP ERFORMED BY: CB [facility] Aiyfjc7151 [address] [facility] [id number] Potassium molar conc 4.8 mmol/L Normal 3.5-5.2 Comp rehensive Internal Medicine Work Phone: Comment on above: PATIENT NOT FASTINGP ERFORMED BY: CB [facility] Xvhdmf7340 [address] [facility]in [place] [id number] Protein mass conc 7.1 g/dL Normal 6.0-8.5 Compreh ensive Internal Medicine Work Phone: Comment on above: PATIENT NOT FASTINGP ERFORMED BY: CB [facility] Qwbqbk9904 [address] [facility] [id number] Sodium molar conc 140 mmol/L Normal 134-144 Compreh ensive Internal Medicine Work Phone: Comment on above: PATIENT NOT FASTINGP ERFORMED BY: CB [facility] Cseomd1629 [address] [facility]in [place] [id number] Urea nitrogen mass conc 21 mg/dL Normal 6-24 [facility] Work Phone: Comment on above: PATIENT NOT FASTINGP ERFORMED BY: CB [facility] Xdhixz0569 [address] RoadDublin [place] [id number] Urea nitrogen/Creatinine mass ratio 21 mg/mg Abnormal 9-20 [facility] Work Phone: Comment on above: PATIENT NOT FASTINGP ERFORMED BY: YVES Kirusa6370 [facility] [id number] Protein Electro.,SOrdered By : Trimmer Sorter on 05-27-2012 Albumin mass conc 4.1 g/dL Normal 3.2-5.6 Compreh ensive Internal Medicine Work Phone: Albumin/Globulin mass ratio 1.4 {ratio} Normal 0.7-2.0 [facility] Work Phone: Alpha 1 globulin Elph mass conc 0.2 g/dL Normal 0.1-0.4 [facility] Work Phone: Alpha 2 globulin Elph mass conc 0.6 g/dL Normal 0.4-1.2 [facility] Work Phone: Beta globulin Elph mass conc 1.0 g/dL Normal 0.6-1.3 [facility] Work Phone: Gamma globulin Elph mass conc 1.2 g/dL Normal 0.5-1.6 [facility] Work Phone: Globulin Calculated mass conc (S) 3.0 g/dL Normal 2.0-4.5 [facility] Work Phone: Laboratory comment [place] (Report) SPRCS Normal [facility] Work Phone: Comment on above: Protein electrophore sis scan will follow via computer, mail, orcourier delivery. Protein.monoclonal Elph mass conc Not Observed Normal [facility] Work Phone: SED RATE ERYTHROCYTE ([id number]) Ordered By: Trimmer Sorter on 05-27-2012 ESR Velocity (Bld) 2 mm/h Normal 0-15 [facility] Work Phone: Comment on above: PATIENT NOT FASTINGP ERFORMED BY: [id number] [facility] [id number] TSH (THYROID STIMULATING HOR RILEY) ([id number])Ordered By: Trimmer Sorter on 05-27-2012 Thyrotropin Qn 1.160 {uIU/mL} Normal 0.450-4.500 [facility]pr [facility] Work Phone: Comment on above: PATIENT NOT FASTINGP ERFORMED BY: YVES [facility] [id number] [facility] [id number] VITAMIN B-12 (CYANOCOBALAMIN ) ([id number])Ordered By: Trimmer Sorter on 05-27-2012 Cobalamin (Vitamin B12) mass conc 481 pg/mL Normal 211-946 [facility] Work Phone: Comment on above: PATIENT NOT FASTINGP ERFORMED BY: YVES [facility] [id number] [facility] [id number] GLUOrdered By: System Manage r on 02-27-2010 Glucose mass conc 82 mg/dL Normal 70-110 Compreh ensive [facility] Work Phone: LIPIDOrdered By: System Subha mehul on 02-27-2010 Cholesterol in HDL mass conc 82 mg/dL Normal [facility] Work Phone: Comment on above: Reference RangeHDL < 40 mg/dL Low HDL CholesterolHDL >or= 60 mg/dL High HDL Cholesterol Cholesterol in LDL mass conc 143 mg/dL Abnormal 0-130 [facility] Work Phone: Cholesterol in VLDL mass conc 19 mg/dL Normal 5-40 [facility] Work Phone: Cholesterol mass conc 244 mg/dL Abnormal [facility] Work Phone: Comment on above: <200 mg/dL Desirable 200-240 mg/dL Borderline>240 mg/dL High Risk Triglyceride mass conc 97 mg/dL Normal [facility] Work Phone: Comment on above: Serum Triglycerides Reference IntervalNormal <150 mg/dLBorderline high 150 - 199 mg/dLHigh 200 - 499 mg/dLVery High > or = 500 mg/dL Vital Signs Date Time Vital Sign Value Performing Clinician Facility 09-04-2022 08:14-0400 Body height 172.72 cm Amaris Aragon [employer] [facility]; [facility] Work Phone: 09-04-2022 08:14-0400 Body mass index (BMI) [Ratio] 27.37 kg/m2 Amaris Aragon [facility] Work Phone: 09-04-2022 08:14-0400 Body surface area Derived from formula 1.95 m2 Amaris Slarb [employer] [facility]; [facility] Work Phone: 09-04-2022 08:14-0400 Body temperature 97.8 [degF] Amaris Slarb [employer] [facility]; [facility] Work Phone: Comment on above: Method: Temporal 09-04-2022 08:14-0400 Body weight 81.65 kg Amaris Hyunrb [employer] [facility]; [facility] Work Phone: 09-04-2022 08:14-0400 Diastolic blood pressure 78 mm[Hg] Amaris Slarb [employer] [facility]; [facility] Work Phone: Comment on above: Patient Position: Sitting; Cuff Location : Left Arm; Cuff Size: Standard 09-04-2022 08:14-0400 Heart rate 72 /min Amaris Slarb [employer] [facility] Work Phone: Comment on above: Pattern: Regular 09-04-2022 08:14-0400 Respiratory rate 17 /min Amaris Slarb [employer] [facility]; [facility] Work Phone: Comment on above: Pattern: Unlabored 09-04-2022 08:14-0400 SaO2% (BldA) [Mass fraction] 99 % Amaris Slarb [employer] [facility]; [facility] Work Phone: Comment on above: Room air 09-04-2022 08:14-0400 Systolic blood pressure 116 mm[Hg] Amaris Slarb [employer] [facility] Work Phone: Comment on above: Patient Position: Sitting; Cuff Location : Left Arm; Cuff Size: Standard 08-28-2022 08:20-0400 Body height 172.72 cm Gabrielle Pizarro [facility] Work Phone: 08-28-2022 08:20-0400 Body mass index (BMI) [Ratio] 27.37 kg/m2 [facility]; [facility] Work Phone: 08-28-2022 08:20-0400 Body surface area Derived from formula 1.95 m2 [facility] Work Phone: 08-28-2022 08:20-0400 Body temperature 100.2 [degF] [facility] Work Phone: Comment on above: Method: Oral 08-28-2022 08:20-0400 Body weight 81.65 kg [facility] Work Phone: 04-13-2022 07:34-0400 Body height 172.72 cm Amaris Slarb [employer] [facility]; [facility] Work Phone: 04-13-2022 07:34-0400 Body mass index (BMI) [Ratio] 27.37 kg/m2 Amaris Slarb [employer] [facility]; [facility] Work Phone: 04-13-2022 07:34-0400 Body surface area Derived from formula 1.95 m2 Amaris Slarb [employer] [facility]; [facility] Work Phone: 04-13-2022 07:34-0400 Body temperature 97.3 [degF] Amaris Slarb [employer] [facility]; [facility] Work Phone: 04-13-2022 07:34-0400 Body weight 81.65 kg Amaris Slarb [employer] [facility]; [facility] Work Phone: 04-13-2022 07:34-0400 Diastolic blood pressure 84 mm[Hg] Amaris Slarb [employer] [facility]; [facility] Work Phone: Comment on above: Patient Position: Sitting; Cuff Location : Left Arm; Cuff Size: Standard 04-13-2022 07:34-0400 Heart rate 16 /min Amaris Slarb [employer] [facility]; [facility] Work Phone: Comment on above: Pattern: Regular 10-28-2022 07:34-0400 Respiratory rate 16 /min Amaris Huynrb [employer] [facility]; [facility] Work Phone: Comment on above: Pattern: Unlabored 04-13-2022 07:34-0400 SaO2% (BldA) [Mass fraction] 99 % Amaris Slarb [employer] [facility]; [facility] Work Phone: Comment on above: Room air 04-13-2022 07:34-0400 Systolic blood pressure 126 mm[Hg] Amaris Hyunrb [employer] [facility]; [facility] Work Phone: Comment on above: Patient Position: Sitting; Cuff Location : Left Arm; Cuff Size: Standard 02-01-2022 08:58-0400 Body temperature 98.7 [degF] Dr. Karley Mckeon Work Phone: [facility] Work Phone: 02-01-2022 08:58-0400 Diastolic blood pressure 76 mm[Hg] Dr. Karley Mckeon Work Phone: [facility] Work Phone: 02-01-2022 08:58-0400 Heart rate 74 /min Dr. Karley Mckeon Work Phone: [facility] Work Phone: 02-01-2022 08:58-0400 Respiratory rate 16 /min Dr. Karley Mckeon Work Phone: [facility] Work Phone: 02-01-2022 08:58-0400 SaO2% (BldA) [Mass fraction] 100 % Dr. Karley Mckeon Work Phone: [facility] Work Phone: 02-01-2022 08:58-0400 Systolic blood pressure 111 mm[Hg] Dr. Karley Mckeon Work Phone: [facility] Work Phone: 02-01-2022 07:23-0400 Body height 170.[address] Karley Mckeon Work Phone: [facility] Work Phone: 02-01-2022 07:23-0400 Body mass index (BMI) [Ratio] 27.3 kg/m2 Dr. Karley Mckeon Work Phone: [facility] Work Phone: 02-01-2022 07:23-0400 Body weight 79.[address] Karley Mckeon Work Phone: [facility] Work Phone: 11-06-2021 10:59-0400 Body mass index (BMI) [Ratio] 26.6 kg/m2 Dr. Karley Mckeon Work Phone: [facility] Work Phone: 11-06-2021 10:59-0400 Body weight 77.[address] Karley Mckeon Work Phone: [facility] Work Phone: 10-18-2021 10:39-0400 Diastolic blood pressure 91 mm[Hg] Dr. Karley Mckeon Work Phone: [facility] Work Phone: 10-18-2021 10:39-0400 Systolic blood pressure 136 mm[Hg] Dr. Karley Mckeon Work Phone: [facility] Work Phone: 10-18-2021 10:39-0400 Diastolic blood pressure 91 mm[Hg] Dr. Karley Mckeon Work Phone: [facility] Work Phone: 10-18-2021 10:39-0400 Systolic blood pressure 136 mm[Hg] Dr. Karley Mckeon Work Phone: [facility] Work Phone: 10-18-2021 08:28-0400 Body mass index (BMI) [Ratio] 28 kg/m2 Dr. Karley Mckeon Work Phone: [facility] Work Phone: 10-18-2021 08:28-0400 Body weight 81.[address] Karley Mckeon Work Phone: [facility] Work Phone: 10-18-2021 08:28-0400 Heart rate 70 /min Dr. Karley Mckeon Work Phone: [facility] Work Phone: 10-18-2021 08:28-0400 Respiratory rate 16 /min Dr. Karley Mckeon Work Phone: [facility] Work Phone: 10-18-2021 08:28-0400 SaO2% (BldA) [Mass fraction] 100 % Dr. Karley Mckeon Work Phone: [facility] Work Phone: 10-18-2021 08:28-0400 Body height 170.[address] Karley Mckeon Work Phone: [facility] Work Phone: 10-18-2021 08:28-0400 Body mass index (BMI) [Ratio] 28 kg/m2 Dr. Karley Mckeon Work Phone: [facility] Work Phone: 10-18-2021 08:28-0400 Body weight 81.[address] Karley Mckeon Work Phone: [facility] Work Phone: 10-18-2021 08:28-0400 Heart rate 70 /min Dr. Karley Mckeon Work Phone: [facility] Work Phone: 10-18-2021 08:28-0400 Respiratory rate 16 /min Dr. Karley Mckeon Work Phone: [facility] Work Phone: 10-18-2021 08:28-0400 SaO2% (BldA) [Mass fraction] 100 % Dr. Karley Mckeon Work Phone: [facility] Work Phone: 07-24-2021 08:02-0500 Body height 172.72 cm [facility]; [facility] Work Phone: Comment on above: Pt did not report. 07-24-2021 08:02-0500 Body mass index (BMI) [Ratio] 27.37 kg/m2 [facility]; [facility] Work Phone: Comment on above: Pt did not report. 07-24-2021 08:02-0500 Body surface area Derived from formula 1.95 m2 [facility]; [facility] Work Phone: Comment on above: Pt did not report. 07-24-2021 08:02-0500 Body weight 81.65 kg [facility]; [facility] Work Phone: Comment on above: Pt did not report. 07-11-2021 05:36-0500 Body height 170.[address] Karley Mckeon Work Phone: [facility] Work Phone: 07-11-2021 05:36-0500 Body mass index (BMI) [Ratio] 28.6 kg/m2 Dr. Karley Mckeon Work Phone: [facility] Work Phone: 07-11-2021 05:36-0500 Body temperature 97.3 [degF] Dr. Karley Mckeon Work Phone: [facility] Work Phone: 07-11-2021 05:36-0500 Body weight [address] Karley Mckeon Work Phone: [facility] Work Phone: 07-11-2021 05:36-0500 Diastolic blood pressure 89 mm[Hg] Dr. Karley Mckeon Work Phone: [facility] Work Phone: 07-11-2021 05:36-0500 Heart rate 70 /min Dr. Karley Mckeon Work Phone: [facility] Work Phone: 07-11-2021 05:36-0500 Respiratory rate 18 /min Dr. Karley Mckeon Work Phone: [facility] Work Phone: 07-11-2021 05:36-0500 SaO2% (BldA) [Mass fraction] 98 % Dr. Karley Mckeon Work Phone: [facility] Work Phone: 07-11-2021 05:36-0500 Systolic blood pressure 135 mm[Hg] Dr. Karley Mckeon Work Phone: [facility] Work Phone: 05-15-2021 10:28-0500 Body height 172.72 cm Amaris Aragon LPN [facility]; [facility] Work Phone: 05-15-2021 10:28-0500 Body mass index (BMI) [Ratio] 27.37 kg/m2 Amaris Aragon LPN [facility]; [facility] Work Phone: 05-15-2021 10:28-0500 Body surface area Derived from formula 1.95 m2 Amaris Aragon LPN [facility]; [facility] Work Phone: 05-15-2021 10:28-0500 Body temperature 97.1 [degF] Amaris Aragon LPN [facility]; [facility] Work Phone: 05-15-2021 10:28-0500 Body weight 81.65 kg Amaris Aragon LPN [facility]; [facility] Work Phone: 05-15-2021 10:28-0500 Diastolic blood pressure 82 mm[Hg] Amaris Slarb [employer] [facility]; [facility] Work Phone: Comment on above: Patient Position: Sitting; Cuff Location : Left Arm; Cuff Size: Standard 05-15-2021 10:28-0500 Heart rate 69 /min Amaris Hyunrb [employer] [facility]; [facility] Work Phone: Comment on above: Pattern: Regular 05-15-2021 10:28-0500 Respiratory rate 16 /min Amaris Hyunrb [employer] [facility]; [facility] Work Phone: Comment on above: Pattern: Unlabored 05-15-2021 10:28-0500 SaO2% (BldA) [Mass fraction] 99 % Amaris Slarb [employer] [facility]; [facility] Work Phone: Comment on above: Room air 05-15-2021 10:28-0500 Systolic blood pressure 132 mm[Hg] Amaris Slarb [employer] [facility]; [facility] Work Phone: Comment on above: Patient Position: Sitting; Cuff Location : Left Arm; Cuff Size: Standard 04-26-2020 08:04-0500 BMI (Body Mass Index) 25.7 kg/m2 KingaJo Ratliff CNP Work Phone: [facility] Work Phone: 04-26-2020 08:04-0500 Body Temperature 98.5 [degF] KingaJo Ratliff CNP Work Phone: [facility] Work Phone: 04-26-2020 08:04-0500 Body weight 76.66 kg KingaJo Ratliff [employer] OFFICE COORDINATOR Work Phone: [facility] Work Phone: 04-26-2020 08:04-0500 BSA (Body Surface Area) 1.9 m2 KingaJo Ratliff [employer] OFFICE COORDINATOR Work Phone: [facility] Work Phone: 04-26-2020 08:04-0500 Height 172.72 cm Jing Ratliff CNP Work Phone: [facility] Work Phone: 10-22-2019 07:10-0400 BMI (Body Mass Index) 25.7 kg/m2 Brigitte Robles RN [facility] Work Phone: Comment on above: Vital signs not obtained d/t call or vir tual visit 10-22-2019 07:10-0400 Body weight 76.66 kg Brigitte Robles RN [facility] Work Phone: Comment on above: Vital signs not obtained d/t call or vir tual visit 10-22-2019 07:10-0400 BSA (Body Surface Area) 1.9 m2 Brigitte Robles RN [facility] Work Phone: Comment on above: Vital signs not obtained d/t call or vir tual visit 10-22-2019 07:10-0400 Height 172.72 cm Brigitte Robles RN [facility] Work Phone: Comment on above: Vital signs not obtained d/t call or vir tual visit 10-21-2019 14:32-0400 BMI (Body Mass Index) 25.7 kg/m2 Nalini Roberto [facility] Work Phone: 10-21-2019 14:32-0400 Body Temperature 96.7 [degF] Nalini Roberto [facility] Work Phone: Comment on above: Method: Temporal 10-21-2019 14:32-0400 Body weight 76.66 kg Nalini Roberto [facility] Work Phone: 10-21-2019 14:32-0400 BP Diastolic 82 mm[Hg] Nalini Roberto [facility] Work Phone: Comment on above: Patient Position: Sitting; Cuff Location : Left Arm; Cuff Size: Standard 10-21-2019 14:32-0400 BP Systolic 122 mm[Hg] Nalini Killianius [facility] Work Phone: Comment on above: Patient Position: Sitting; Cuff Location : Left Arm; Cuff Size: Standard 10-21-2019 14:32-0400 BSA (Body Surface Area) 1.9 m2 Nalini Dailyius [facility] Work Phone: 10-21-2019 14:32-0400 Height 172.72 cm Nalini Roberto [facility] Work Phone: 10-21-2019 14:32-0400 Pulse (Heart Rate) 77 /min Nalini Roberto [facility] Work Phone: Comment on above: Pattern: Regular 10-21-2019 14:32-0400 Pulse Oximetry 97 % Karley Mckeon [facility] Work Phone: Comment on above: Room air 10-21-2019 14:32-0400 Respiratory Rate 18 /min Nalini Roberto [facility] Work Phone: Comment on above: Pattern: Unlabored 10-21-2019 14:32-0400 SaO2% (BldA) [Mass fraction] 97 % Nalini Roberto [facility]; [facility] Work Phone: Comment on above: Room air 10-05-2019 12:03-0400 BMI (Body Mass Index) 24.78 kg/m2 Cindy Maharaj jaimie [facility] Work Phone: Comment on above: will check and have them ready for when [facility] calls 10-05-2019 12:03-0400 Body weight 73.94 kg Cindy Pollack RN [facility] Work Phone: Comment on above: will check and have them ready for when [facility] calls 10-05-2019 12:03-0400 BSA (Body Surface Area) 1.87 m2 Cindy Pollack RN [facility] Work Phone: Comment on above: will check and have them ready for when [facility] calls 10-05-2019 12:03-0400 Height 172.72 cm Cindy Pollack RN [facility] Work Phone: Comment on above: will check and have them ready for when [facility] calls 10-02-2019 09:05-0400 BMI (Body Mass Index) 24.78 kg/m2 Tigre Baker sive [facility] Work Phone: Comment on above: pt took vitals and reported 10-02-2019 09:05-0400 Body Temperature 99.4 [degF] Tigre Martir [facility] Work Phone: Comment on above: Method: Temporal pt took vitals and r eported 10-02-2019 09:05-0400 Body weight 73.94 kg Tigre Mcmahan [facility] Work Phone: Comment on above: pt took vitals and reported 10-02-2019 09:05-0400 BSA (Body Surface Area) 1.87 m2 Tigre Martir [facility] Work Phone: Comment on above: pt took vitals and reported 10-02-2019 09:05-0400 Height 172.72 cm Tigre Martir [facility] Work Phone: Comment on above: pt took vitals and reported 09-23-2019 08:55-0400 BMI (Body Mass Index) 25.09 kg/m2 Amaris Mahesh [facility] Work Phone: Comment on above: patient reported. 09-23-2019 08:55-0400 Body Temperature 99.7 [degF] Amaris Mahesh [facility] Work Phone: Comment on above: patient reported. 09-23-2019 08:55-0400 Body weight 74.84 kg Amaris Aragon [facility] Work Phone: Comment on above: patient reported. 09-23-2019 08:55-0400 BSA (Body Surface Area) 1.88 m2 Amaris Mahesh [facility] Work Phone: Comment on above: patient reported. 09-23-2019 08:55-0400 Height 172.72 cm Amaris Aragon [facility] Work Phone: Comment on above: patient reported. 09-07-2019 14:18-0400 BMI (Body Mass Index) 28.59 kg/m2 Brigitte Robels RN [facility] Work Phone: Comment on above: Vital signs not obtained d/t call or vir tual visit 09-07-2019 14:18-0400 Body weight 85.28 kg Brigitte Robles RN [facility] Work Phone: Comment on above: Vital signs not obtained d/t call or vir tual visit 09-07-2019 14:18-0400 BSA (Body Surface Area) 1.99 m2 Brigitte Robles RN [facility] Work Phone: Comment on above: Vital signs not obtained d/t call or vir tual visit 09-07-2019 14:18-0400 Height 172.72 cm Brigitte Robles RN [facility] Work Phone: Comment on above: Vital signs not obtained d/t call or vir tual visit 05-27-2015 07:13-0500 BMI (Body Mass Index) 28.59 kg/m2 [facility] Work Phone: 05-27-2015 07:13-0500 Body Temperature 97.5 [degF] Cecelia Anand [facility] Work Phone: Comment on above: Method: Temporal 05-27-2015 07:130500 Body weight 85.28 kg Cecelia Anand [facility] Work Phone: 05-27-2015 07:13-0500 BP Diastolic 80 mm[Hg] Cecelia Anand [facility] Work Phone: Comment on above: Patient Position: Sitting; Cuff Location : Left Arm; Cuff Size: Standard 05-27-2015 07:13-0500 BP Systolic 110 mm[Hg] Cecelia Anand [facility] Work Phone: Comment on above: Patient Position: Sitting; Cuff Location : Left Arm; Cuff Size: Standard 05-27-2015 07:13-0500 BSA (Body Surface Area) 1.99 m2 Cecelia Anand [facility] Work Phone: 05-27-2015 07:130500 Height 172.72 cm Cecelia Anand [facility] Work Phone: 05-27-2015 07:13-0500 Pulse (Heart Rate) 104 /min Cecelia Subramanianensiv e [facility] Work Phone: Comment on above: Pattern: Regular 05-27-2015 07:13-0500 Pulse Oximetry 97 % Karley Mckeon [facility] Work Phone: Comment on above: Room air 05-27-2015 07:13-0500 Respiratory Rate 16 /min Cecelia Anand [facility] Work Phone: Comment on above: Pattern: Unlabored 05-27-2015 07:13-0500 SaO2% (BldA) [Mass fraction] 97 % Cecelia Anand [facility]; [facility] Work Phone: Comment on above: Room air 05-27-2015 07:13-0500 Weight 85.28 kg Karley Mckeon [facility] Work Phone: 05-02-2015 08:59-0500 BMI (Body Mass Index) 28.64 kg/m2 Brigitte Robles RN [facility] Work Phone: 05-02-2015 08:59-0500 Body weight 85.45 kg Brigitte Robles RN [facility] Work Phone: 05-02-2015 08:59-0500 BP Diastolic 80 mm[Hg] Brigitte Robles RN [facility] Work Phone: Comment on above: Patient Position: Sitting; Cuff Location : Left Arm; Cuff Size: Large 05-02-2015 08:59-0500 BP Systolic 122 mm[Hg] Brigitte Robles RN [facility] Work Phone: Comment on above: Patient Position: Sitting; Cuff Location : Left Arm; Cuff Size: Large 05-02-2015 08:59-0500 BSA (Body Surface Area) 1.99 m2 Brigitte Robles RN [facility] Work Phone: 05-02-2015 08:59-0500 Height 172.72 cm Brigitte Robles RN [facility] Work Phone: 05-02-2015 08:59-0500 Pulse (Heart Rate) 66 /min Brigitte Robles RN [facility] Work Phone: Comment on above: Pattern: Regular 05-02-2015 08:59-0500 Pulse Oximetry 98 % Karley Thompsonon [facility] Work Phone: Comment on above: Room air 05-02-2015 08:59-0500 Respiratory Rate 18 /min Brigitte Robles RN [facility] Work Phone: Comment on above: Pattern: Unlabored 05-02-2015 08:59-0500 SaO2% (BldA) [Mass fraction] 98 % Brigitte Robles RN [facility]; [facility] Work Phone: Comment on above: Room air 05-02-2015 08:59-0500 Weight 85.45 kg Karley Mckeon [facility] Work Phone: 03-28-2015 08:26-0400 BMI (Body Mass Index) 28.28 kg/m2 Cindy Pollack RN [facility] Work Phone: 03-28-2015 08:26-0400 Body Temperature 97.6 [degF] Cindy Pollack RN [facility] Work Phone: Comment on above: Method: Temporal 03-28-2015 08:26-0400 Body weight 84.37 kg Cindy Pollack RN [facility] Work Phone: 03-28-2015 08:26-0400 BP Diastolic 74 mm[Hg] Cindy Pollack RN [facility] Work Phone: Comment on above: Patient Position: Sitting; Cuff Location : Left Arm; Cuff Size: Standard 03-28-2015 08:26-0400 BP Systolic 130 mm[Hg] Cindy Pollack RN [facility] Work Phone: Comment on above: Patient Position: Sitting; Cuff Location : Left Arm; Cuff Size: Standard 03-28-2015 08:26-0400 BSA (Body Surface Area) 1.98 m2 Cindy Pollack RN [facility] Work Phone: 03-28-2015 08:26-0400 Height 172.72 cm Cindy Pollack RN [facility] Work Phone: 03-28-2015 08:26-0400 Pulse (Heart Rate) 74 /min Cindy Pollack RN [facility] Work Phone: Comment on above: Pattern: Regular 03-28-2015 08:26-0400 Pulse Oximetry 97 % Karley Mckeon [facility] Work Phone: Comment on above: Room air 03-28-2015 08:26-0400 Respiratory Rate 16 /min Cindy Pollack RN [facility] Work Phone: Comment on above: Pattern: Unlabored 03-28-2015 08:26-0400 SaO2% (BldA) [Mass fraction] 97 % Cindy Pollack RN [facility]; [facility] Work Phone: Comment on above: Room air 03-28-2015 08:26-0400 Weight 84.37 kg Karley Mckeon [facility] Work Phone: 10-09-2013 13:33-0400 BMI (Body Mass Index) 22.55 kg/m2 Geniramakrishna Reyna [facility] Work Phone: 10-09-2013 13:33-0400 Body Temperature 98.9 [degF] Geniramakrishna Reyna [facility] Work Phone: Comment on above: Method: Tympanic 10-09-2013 13:33-0400 Body weight 67.27 kg Geniramakrishna Reyna [facility] Work Phone: 10-09-2013 13:33-0400 BP Diastolic 86 mm[Hg] [facility] Work Phone: Comment on above: Patient Position: Sitting; Cuff Location : Left Arm; Cuff Size: Standard 10-09-2013 13:33-0400 BP Systolic 128 mm[Hg] Geniramakrishna Reyna [facility] Work Phone: Comment on above: Patient Position: Sitting; Cuff Location : Left Arm; Cuff Size: Standard 10-09-2013 13:33-0400 BSA (Body Surface Area) 1.8 m2 Geniramakrishna Reyna [facility] Work Phone: 10-09-2013 13:33-0400 Height 172.72 cm Geniramakrishna Reyna [facility] Work Phone: 10-09-2013 13:33-0400 Pulse (Heart Rate) 98 /min Geni Reyna [facility] Work Phone: Comment on above: Pattern: Regular 10-09-2013 13:33-0400 Pulse Oximetry 98 % Karley Mckeon [facility] Work Phone: Comment on above: Room air 10-09-2013 13:33-0400 Respiratory Rate 18 /min Geni Reyna [facility] Work Phone: Comment on above: Pattern: Unlabored 10-09-2013 13:33-0400 SaO2% (BldA) [Mass fraction] 98 % Geni Reyna [facility]; [facility] Work Phone: Comment on above: Room air 10-09-2013 13:33-0400 Weight 67.27 kg Karley Mckeon [facility] Work Phone: 07-15-2012 10:49-0500 BMI (Body Mass Index) 22.55 kg/m2 Karley Mckeon [facility] Work Phone: 07-15-2012 10:49-0500 Body Temperature 98.3 [degF] Karley Mckeon [facility] Work Phone: Comment on above: Method: Oral 07-15-2012 10:49-0500 Body weight 67.27 kg Karley Mckeon [facility] Work Phone: 07-15-2012 10:49-0500 BP Diastolic 70 mm[Hg] Karley Mckeon [facility] Work Phone: Comment on above: Patient Position: Sitting; Cuff Location : Left Arm; Cuff Size: Standard 07-15-2012 10:49-0500 BP Systolic 124 mm[Hg] Karley Mckeon [facility] Work Phone: Comment on above: Patient Position: Sitting; Cuff Location : Left Arm; Cuff Size: Standard 07-15-2012 10:49-0500 BSA (Body Surface Area) 1.8 m2 Karley Mckeon [facility] Work Phone: 07-15-2012 10:49-0500 Height 172.72 cm Karley Mckeon [facility] Work Phone: 07-15-2012 10:49-0500 Pulse (Heart Rate) 72 /min Karley Mckeon [facility] Work Phone: Comment on above: Pattern: Regular 07-15-2012 10:49-0500 Pulse Oximetry 98 % Karley Mckeon [facility] Work Phone: Comment on above: Room air 07-15-2012 10:49-0500 SaO2% (BldA) [Mass fraction] 98 % Karley Mckeon DO Work Phone: [facility]; [facility] Work Phone: Comment on above: Room air 07-15-2012 10:49-0500 Weight 67.27 kg Karley Mckeon [facility] Work Phone: 2012 09:45-0500 BMI (Body Mass Index) 22.55 kg/m2 Karley Mckeon [facility] Work Phone: 2012 09:45-0500 Body Temperature 98.4 [degF] Karley Mckeon [facility] Work Phone: Comment on above: Method: Oral 2012 09:45-0500 Body weight 67.27 kg Karley Mckeon [facility] Work Phone: 2012 09:45-0500 BP Diastolic 78 mm[Hg] Karley Mckeon [facility] Work Phone: Comment on above: Patient Position: Sitting; Cuff Location : Left Arm; Cuff Size: Standard 2012 09:45-0500 BP Systolic 118 mm[Hg] Karley Mckeon [facility] Work Phone: Comment on above: Patient Position: Sitting; Cuff Location : Left Arm; Cuff Size: Standard 2012 09:45-0500 BSA (Body Surface Area) 1.8 m2 Karley Mckeon [facility] Work Phone: 2012 09:45-0500 Height 172.72 cm Karley Mckeon [facility] Work Phone: 2012 09:45-0500 Pulse (Heart Rate) 76 /min Karley Mckeon [facility] Work Phone: Comment on above: Pattern: Regular 2012 09:45-0500 Pulse Oximetry 98 % Karley Mckeon [facility] Work Phone: Comment on above: Room air 2012 09:45-0500 SaO2% (BldA) [Mass fraction] 98 % Karley Mckeon DO Work Phone: [facility]; [facility] Work Phone: Comment on above: Room air 2012 09:45-0500 Weight 67.27 kg Karley Mckeon [facility] Work Phone: 05-27-2012 08:13-0500 BMI (Body Mass Index) 22.55 kg/m2 Karley Mckeon [facility] Work Phone: 05-27-2012 08:13-0500 Body Temperature 98 [degF] Karley Mckeon [facility] Work Phone: Comment on above: Method: Oral 05-27-2012 08:13-0500 Body weight 67.27 kg Karley Mckeon [facility] Work Phone: 05-27-2012 08:13-0500 BP Diastolic 70 mm[Hg] Karley Mckeon [facility] Work Phone: Comment on above: Patient Position: Sitting; Cuff Location : Left Arm; Cuff Size: Standard 05-27-2012 08:13-0500 BP Systolic 112 mm[Hg] Karley Mckeon [facility] Work Phone: Comment on above: Patient Position: Sitting; Cuff Location : Left Arm; Cuff Size: Standard 05-27-2012 08:13-0500 BSA (Body Surface Area) 1.8 m2 Karely Mckeon [facility] Work Phone: 05-27-2012 08:13-0500 Height 172.72 cm Karley Mckeon [facility] Work Phone: 05-27-2012 08:13-0500 Pulse (Heart Rate) 76 /min Karley Mckeon [facility] Work Phone: Comment on above: Pattern: Regular 05-27-2012 08:13-0500 Respiratory Rate 15 /min Karley Mckeon [facility] Work Phone: 05-27-2012 08:13-0500 Weight 67.27 kg Karley Mckeon [facility] Work Phone: 07-28-2010 07:29-0500 Body Temperature 98.4 [degF] Cindy Pollack RN [facility] Work Phone: Comment on above: Method: Oral 07-28-2010 07:29-0500 BP Diastolic 80 mm[Hg] Cindy Pollack RN [facility] Work Phone: Comment on above: Patient Position: Sitting; Cuff Location : Left Arm; Cuff Size: Standard 07-28-2010 07:29-0500 BP Systolic 108 mm[Hg] Cindy Pollack RN [facility] Work Phone: Comment on above: Patient Position: Sitting; Cuff Location : Left Arm; Cuff Size: Standard 07-28-2010 07:29-0500 Pulse (Heart Rate) 88 /min Cindy Pollack RN [facility] Work Phone: Comment on above: Pattern: Regular 07-28-2010 07:29-0500 Pulse Oximetry 98 % Karley Mckeon [facility] Work Phone: Comment on above: Room air 07-28-2010 07:29-0500 Respiratory Rate 14 /min Cindy Pollack RN [facility] Work Phone: Comment on above: Pattern: Unlabored 07-28-2010 07:29-0500 SaO2% (BldA) [Mass fraction] 98 % Cindy Pollack RN [facility]; [facility] Work Phone: Comment on above: Room air 07-18-2006 08:51-0500 BMI (Body Mass Index) 22.55 kg/m2 Karley Mckeon [facility] Work Phone: 07-18-2006 08:51-0500 Body Temperature 97.8 [degF] Karley Mcekon [facility] Work Phone: Comment on above: Method: Undefined 07-18-2006 08:51-0500 Body weight 67.27 kg Karley Mckeon [facility] Work Phone: 07-18-2006 08:51-0500 BP Diastolic 64 mm[Hg] Karley Mckeon [facility] Work Phone: Comment on above: Patient Position: Sitting; Cuff Location : Left Arm; Cuff Size: Standard 07-18-2006 08:51-0500 BP Systolic 118 mm[Hg] Karley Mckeon [facility] Work Phone: Comment on above: Patient Position: Sitting; Cuff Location : Left Arm; Cuff Size: Standard 07-18-2006 08:51-0500 BSA (Body Surface Area) 1.8 m2 Karley Mckeon [facility] Work Phone: 07-18-2006 08:51-0500 Head Circumference 0 cm Karley Mckeon [facility] Work Phone: 07-18-2006 08:51-0500 Head Occipital-frontal circumference 0 cm Karley Mckeon DO Work Phone: [facility]; [facility] Work Phone: 07-18-2006 08:51-0500 Height 172.72 cm Karley Mckeon [facility] Work Phone: 07-18-2006 08:51-0500 Pulse (Heart Rate) 76 /min Karley Mckeon [facility] Work Phone: Comment on above: Pattern: Regular 07-18-2006 08:51-0500 Respiratory Rate 16 /min Karley Mckeon [facility] Work Phone: Comment on above: Pattern: Undefined 07-18-2006 08:51-0500 Weight 67.27 kg Karley Mckeon [facility] Work Phone: Encounters Encounter Date Encounter Type Care Provider Facility Start: 03-22-2025 ambulatory Nicholas Friend Facility :[facility] Start: 03-19-2023 End: 03-20-2023 Office outpatient visit 5 minutes Karley Linda DO Work Phone: [facility] Start: 09-04-2022 ambulatory Karley Linda DO [facility] Start: 09-04-2022 Review Karley Fearo n DO Work Phone: [facility] Start: 09-04-2022 End: 09-04-2022 Office outpatient visit 15 minutes Karley Linda DO Work Phone: [facility] Start: 08-28-2022 End: 08-28-2022 Office outpatient visit 15 minutes Karley Linda DO Work Phone: [facility] Start: 08-28-2022 Review Karley Fearo n DO Work Phone: [facility] Start: 04-13-2022 Review Karley Fearo n DO Work Phone: [facility] Start: 04-13-2022 End: 04-18-2022 Office outpatient visit 15 minutes Karley Linda DO Work Phone: [facility] Start: 04-11-2022 End: 04-11-2022 Office outpatient visit 5 minutes Karley Linda DO Work Phone: [facility] Start: 03-12-2022 End: 03-21-2022 Office outpatient visit 5 minutes Karley Linda DO Work Phone: [facility] Start: 02-01-2022 Non-patient / Non-visit Dr. Karley Mckeon Work Phone: [facility] Start: 02-01-2022 End: 02-01-2022 Admission to same day surgery center Dr. Karley Mckeon Work Phone: [facility] Start: 11-06-2021 Non-patient / Non-visit Dr. Karley Mckeon Work Phone: [facility] Start: 10-31-2021 Non-patient / Non-visit Dr. Karley Mckeon Work Phone: [facility] Start: 10-31-2021 End: 10-31-[address] Karley Mckeon Work Phone: [facility]Cardi[facility] Start: 10-18-[address] Karley Mckeon Work Phone: [facility] Work Phone: Start: 10-18-2021 End: 10-18-2021 Admission to same day surgery center Dr. Karley Mckeon Work Phone: [facility] Start: 10-18-2021 End: 10-18-[address] Karley Mckeon Work Phone: [facility] Start: 08-29-2021 End: 08-29-[address] Karley Mckeon Work Phone: [facility]-Pre-Admission Testing Start: 08-29-2021 Non-patient / Non-visit Dr. Karley Mckeon Work Phone: [facility] Start: 07-25-2021 End: 07-25-[address] Karley Mckeon Work Phone: [facility] Start: 07-24-2021 End: 07-24-2021 Office outpatient visit 15 minutes Karley Mckeon DO Work Phone: [facility] Start: 07-24-2021 Review Karley menon DO Work Phone: [facility] Start: 07-11-2021 End: 07-11-[address] Karley Mckeon Work Phone: [facility] Start: 05-15-2021 End: 05-15-2021 Office outpatient visit 25 minutes Karley Mckeon DO Work Phone: [facility] Start: 04-26-2020 End: 04-26-2020 Office outpatient visit 15 minutes Karley Lang [facility] Start: 04-26-2020 Review Karley Subramanian [facility] Start: 04-21-2020 End: 04-21-2020 Annotation/Addendum Karley [facility] Start: 03-04-2020 End: 03-04-2020 Office outpatient visit 5 minutes Karley Mckeon [facility] Start: 10-22-2019 End: 10-22-2019 Office outpatient visit 25 minutes Karley Mckeon [facility] Start: 10-21-2019 End: 10-21-2019 Office outpatient visit 25 minutes Karley Mckeon [facility] Start: 10-21-2019 End: 10-21-2019 Patient encounter status Karley Mckeon DO Work Phone: [facility] Start: 10-05-2019 End: 10-05-2019 Office outpatient visit 15 minutes Karley Mckeon [facility] Start: 10-02-2019 End: 10-02-2019 Office outpatient visit 25 minutes Karley Mckeon [facility] Start: 09-25-2019 End: 09-25-2019 Office outpatient visit 15 minutes Karley Lang [facility] Start: 09-23-2019 End: 09-23-2019 Office outpatient visit 15 minutes Karley Mckeon [facility] Start: 09-11-2019 End: 09-11-2019 Phone Encounter Karley Lang [facility] Start: 09-07-2019 End: 09-07-2019 Office outpatient new 30 minutes Karley Lang [facility] Start: 05-27-2015 End: 05-29-2015 Office outpatient visit 15 minutes Karley Mckeon [facility] Start: 05-02-2015 End: 05-02-2015 Office outpatient visit 15 minutes Karley Lang [facility] Start: 03-28-2015 End: 03-28-2015 Office outpatient visit 25 minutes Karley Mckeon [facility] Start: 10-09-2013 End: 10-09-2013 Office outpatient visit 15 minutes Karley Mckeon [facility] Start: 07-15-2012 End: 07-15-2012 Office outpatient visit 15 minutes Karley Mckeon [facility] Start: 2012 End: 2012 Office outpatient visit 25 minutes Karley Mckeon [facility] Start: 05-27-2012 End: 05-27-2012 Office outpatient visit 25 minutes Karley Mckeon [facility] Start: 02-20-2011 End: 02-20-2011 Phone Encounter Karley Mckeon [facility] Start: 07-28-2010 End: 07-28-2010 Patient encounter Karley Mckeon [facility] Start: 07-18-2006 End: 07-18-2006 Office outpatient visit 25 minutes Karley Mckeon [facility] Start: 07-12-2006 End: 07-12-2006 Historical Summary Karley Mckeon [facility] Patient encounter status Amaris Slajoão PERERA [facility]; [facility] Work Phone: Patient encounter status Amaris Mahesh PERERA [facility]; [facility] Work Phone: Patient encounter status Amaris Mahesh PERERA [facility]; [facility] Work Phone: Patient encounter status Gabrielle Pizarro VICKY [facility]; [facility] Work Phone: Patient encounter status Amaris Aragon DILMA [facility]; [facility] Work Phone: Procedures Date Procedure Procedure Detail Performing Clinician Start: 02-01-2022 End: 03-22-2022 Colonoscopy Report Procedure Note: See Note; NOTES: [facility] Medical Records Department [address] [place] [id number] Colonoscopy Report MR#: [id number] Acct: [id number] Name: SYED ALEGRE Rep #: [id number] : 1965 56 From: Nicholas Jean-Baptiste DO PCP: Dr. Karley Mckeon DO Status:[facility] Patient Name: Syed Alegre Procedure Date: 02/01/2022 8:03 AM Date of : 1965 Age: 56 Procedure: Colonoscopy Indications: Screening for colorectal malignant neoplasm Providers: Nicholas Jean-Baptiste DO Medicines: Monitored Anesthesia Care Patient Profile: This is a 56 year old male. Refer to note in patient chart for documentation of history and physical. Last Colonoscopy: none. The patient's first colonoscopy is today. Complications: No immediate complications. Procedure: Pre-Anesthesia Assessment: - Prior to the procedure, a History and Physical was performed, and patient medications and allergies were reviewed. The risks and benefits of the procedure and the sedation options and risks were discussed with the patient. All questions were answered and informed consent was obtained. Patient identification and proposed procedure were verified by the physician in the pre-procedure area. Mental Status Examination: alert and oriented. Airway Examination: normal oropharyngeal airway and neck mobility. Respiratory Examination: clear to auscultation. CV Examination: normal. Prophylactic Antibiotics: The patient does not require prophylactic antibiotics. Prior Anticoagulants: The patient has taken no previous anticoagulant or antiplatelet agents. After reviewing the risks and benefits, the patient was deemed in satisfactory condition to undergo the procedure. The anesthesia plan was to use moderate sedation / analgesia (conscious sedation). Immediately prior to administration of medications, the patient was re-assessed for adequacy to receive sedatives. The heart rate, respiratory rate, oxygen saturations, blood pressure, adequacy of pulmonary ventilation, and response to care were monitored throughout the procedure. The physical status of the patient was re-assessed after the procedure. After I obtained informed consent, the scope was passed under direct vision. Throughout the procedure, the patient's blood pressure, pulse, and oxygen saturations were monitored continuously. The adult colonoscope was introduced through the anus and advanced to the cecum, identified by appendiceal orifice and ileocecal valve. The colonoscopy was performed without difficulty. The patient tolerated the procedure well. The quality of the bowel preparation was good. Scope In: 8:13:50 AM Scope Withdrawal Time 0 hours 21 minutes 36 seconds Scope Out: 8:38:08 AM Total Procedure Duration Time 0 hours 24 minutes 18 seconds Findings: The perianal and digital rectal examinations were normal. A few small-mouthed diverticula were found in the recto-sigmoid colon and sigmoid colon. Three sessile polyps were found in the descending colon, hepatic flexure and ascending colon. The polyps were 1 to 2 mm in size. These polyps were removed with a hot snare. Resection and retrieval were complete. Verification of patient identification for the specimen was done. Estimated blood loss was minimal. Impression: - Diverticulosis in the recto-sigmoid colon and in the sigmoid colon. - Three 1 to 2 mm polyps in the descending colon, at the hepatic flexure and in the ascending colon, removed with a hot snare. Resected and retrieved. Recommendation: - Repeat colonoscopy in 3 years for surveillance. - Continue present medications. Procedure Code(s): --- Professional --- 85912, Colonoscopy, flexible; with removal of tumor(s), polyp(s), or other lesion(s) by snare technique CPT copyright 2017 [employer]. All rights reserved. The codes documented in this report are preliminary and upon drawstring knotter review may be revised to meet current compliance requirements. Nicholas Jean-Baptiste DO 02/01/2022 8:43:19 AM This report has been signed electronically. Number of Addenda: 0 Note Initiated On: 02/01/2022 8:03 AM 02/01/22842 Date Nicholas Jean-Baptiste DO Cosigner Signature: Date (if indicated) CC: Dr. Karley Mckeon DO; Nicholas Jean-Baptiste DO Date Dictated: 02/01/22802 Date Transcribed: Casting Wheel Operator: ADAMS Signed Karley Mckeon DO Work Phone: Start: 02-01-[address] Karley Mckeon Work Phone: Start: 02-01-2022 End: 02-01-2022 History and Physical Exam Procedure Note: See Note; NOTES: [facility] Medical Records Department [address] [place] [id number] History Physical Exam 02/01/22 08 MR#: [id number] Acct: [id number] Name: SYED ALEGRE Rep #: [id number] : 1965 56 From: Nicholas Jean-Baptiste DO PCP: Dr. Karley Mckeon DO Status:[facility] Location: [place] [address] HPI - General General Date of Admission: 02/01/22 Date of Service: 02/01/22 Chief Complaint: sreening colonoscopy HPI Narrative SYED ALEGRE, is a 56 M who presents for screening colonoscopy. He has not had a colonoscopy previously. He is not having abdominal pain. He has not had any change of bowel habits. He is not have any chest pain or shortness of breath. He does not take laxatives. He has no past medical history of anemia. Overall he is in very good health. All other 16 review of systems are negative except as per body mentioned HPI. [facility] Medical History (Updated 01/29/22 @ 13:41 by Giuliana Cody) Abnormal electrocardiogram Allergic rhinitis Arthritis Asthma Cardiology follow-up encounter Dietary restriction Encounter for screening for malignant neoplasm of colon Fibromyalgia GERD (gastroesophageal reflux disease) Migraine Muscle tension headache Normal stress echocardiogram Plantar fasciitis Wears glasses Home Medications therapeutic multivitamin 1 ea PO DAILY 05/13/17 [History Last Taken 05/12/17] loratadine 10 mg capsule 10 mg PO DAILY 11/12/19 [History Last Taken Unknown] cholecalciferol (vitamin D3) 25 mcg (1,000 unit) capsule 25 mcg PO DAILY 11/18/19 [History Last Taken Unknown] famotidine 20 mg tablet 20 mg PO DAILY 11/18/19 [History Last Taken Unknown] albuterol sulfate 90 mcg/actuation aerosol inhaler 1 - 2 puff inhalation Q6H PRN ASTHMA 08/28/21 [History Last Taken Unknown] ascorbic acid (vitamin C) 500 mg tablet (Vitamin C) 500 mg PO DAILY 08/28/21 [History Last Taken Unknown] zinc 50 mg tablet 50 mg PO DAILY 08/28/21 [History Last Taken Unknown] metaxalone 800 mg tablet 800 mg PO ONCE PRN MIGRAINES 10/11/21 [History Last Taken Unknown] rizatriptan 10 mg tablet 10 mg PO ONCE PRN MIGRAINES 10/11/21 [History Last Taken Unknown] Allergy/AdvReac Type Severity Reaction Status Date / Time codeine AdvReac Nausea Verified 02/01/22 07:19 Family History (Updated 11/06/21 @ 10:54 by Palma Salas) Father Diabetes Atrial fibrillation History of colon polyps Grandmother Diabetes Other Asthma Heart disease Hypertension Social History Smoking Status: Never smoker ROS Review of Systems ROS Unobtainable: other Constitutional Constitutional: Denies fatigue, fever(s), poor appetite, weight gain or weight loss ENT HEENT: Denies mouth lesions Cardiovascular Cardiovascular: Denies abdominal bloating, abdominal edema or abdominal pain Respiratory/Chest Respiratory/Chest: Denies change in mental status, change in phlegm color, chest congestion or chest tightness Gastrointestinal Gastrointestinal: Denies belching, bloating, change in bowel habits, change in stool character, chewing difficulty, coffee ground emesis, constipation, cramping, diarrhea, dyspepsia, dysphagia, early satiety, excessive flatus, fecal incontinence, heartburn, hematemesis, hematochezia, hemorrhoids, loose stools, melena, nausea, odynophagia, rectal bleeding, tenesmus, vomiting or weight changes Genitourinary Genitourinary: Denies abdominal discomfort, burning urination or itching Musculoskeletal Musculoskeletal: Reports as per HPI; Denies muscle weakness or myalgias Integumentary Integumentary: Denies jaundice Neurologic Neurologic: Denies lack of coordination or weakness Psychiatric Psychiatric: Denies confusion, depression, memory loss, mood swings, paranoia or suicidal ideation Endocrine Endocrinology: Denies systems reviewed and no addt'l complaints, except as documented Hematologic/Lymphatic Hematologic/Lymphatic: Denies anemia, easy bleeding, easy bruising or lymphadenopathy Allergic/Immunologic Allergic/Immunologic: Denies systems reviewed and no addt'l complaints, except as documented Vital Signs Vital Signs Vital Signs: 02/01/22 07:21 02/01/22 07:23 Temperature 97.7 F L Temperature Source Temporal Pulse Rate 105 H Respiratory Rate 18 Respiratory Pattern Normal Blood Pressure 137/90 H Blood Pressure Mean 105 Blood Pressure Source Monitor Blood Pressure Position Semi-Fowlers Blood Pressure Location Right Arm Pulse Ox 100 Oxygen Delivery Method Room Air Weight Weight: 174 lb 6.4 oz Body Mass Index (BMI) 27.3 Physical Exam Const alert General Appearance: cooperative Orientation / Consciousness: oriented to person HEENT hearing grossly normal bilaterally Head and Scalp: normal to inspection Face and Sinus: face symmetric Nose: external nose normal Mouth: oral and palatal mucosa normal Eyes conjunctivae normal General Eye: normal appearance of both eyes Neck full ROM General: normal visual inspection Lymph Lymphatic: no lymphadenopathy noted Chest inspection of chest normal and palpation of chest normal Chest: symmetrical chest wall rise Resp normal respiratory effort Effort and Inspection: able to speak in complete sentences Cardio regular rate GI non-distended Percussion: normal to percussion Rectal Exam: deferred Neuro Speech: speech normal Gait (Neuro): normal gait Assessment Plan Assessment/Plan (1) Encounter for screening for malignant neoplasm of colon: PLAN: He was explained alternatives, risk, benefits including not withstanding bleeding, infection, sepsis, missed polyps, perforation, need for emergent surgery . Have an ASA of 1. 02/01/22 0805 <Electronically signed by Nicholas Jean-Baptiste DO> Cosigner Signature (if applicable): CC: Dr. Karley Mckeon DO; Nicholas Jean-Baptiste DO Signed Karley Mckeon DO Work Phone: Start: 10-31-2021 End: 10-31-2021 Stress Test Echo W/Contrast Procedure Note: See Note; NOTES: [facility] [address] [place] [id number] Stress Test Echo W/Contrast MR#: [id number] Acct: [id number] Name: SYED ALEGRE Rep #: [id number] : 1965 56 From: Linwood Arana MD Primary Care: Dr. Karley Mckeon DO Status: REG CLI Ordering Dr: Linwood Arana MD Sex: M C Reason For Study: PRE OP CLEARANCE, ARRHYTHMIA Stress Results Protocol: Ian Protocol WITH DEFINITY Maximum Predicted HR: 165 bpm Target HR: 140 bpm % Maximum Predicted HR: 99 % DurationHeart Rate Stage (mm:ss) (bpm) BP Comment BASELINE 71 112/86 STAGE 1 3:00 106 142/88 NO CHEST PAIN STAGE 2 3:00 126 144/92 STAGE 3 3:00 164 152/102 RECOVERY 97 128/84 2 CC DEFINITY FOR ENTIRE TEST Stress Duration: 9:00 mm:ss Maximum Stress HR: 164 bpm Baseline Echocardiogram Findings Stress Echo Wall motion Data Resting WM Intermediate WM Stress WM Doppler Measurements Calculations TR max jihan: 258.9 cm/sec TR max P.8 mmHg ECHO/Stress Test Echo W/Contrast Interpretation Summary Exercise stress echo. 56-year-old male with a history of preoperative cardiac evaluation. Stress protocol: Resting EKG demonstrates sinus rhythm with a rate of 67 bpm normal intervals are noted resting blood pressure is 102/86 mmHg. The patient exercised according to regular Ian protocol for total duration of 9 minutes. The maximum heart rate attained was 164 bpm which was 99% of max impact at heart rate the maximum workload was 10.1 metabolic equivalents. At rest there were no ST or T wave changes noted suggest ischemia and at peak exercise upsloping ST changes were noted with did not meet the criteria for ischemia. Some T wave inversions were noted in lead III and aVF. No chest pain was noted the test was terminated due to target heart rate being achieved. The peak blood pressure is 152/102 mmHg which was a good blood pressure response to exercise. Stress echocardiogram. The resting echocardiogram was performed with Definity enhancement. The estimated ejection fraction at rest was 55%. At peak exercise there was thickening of all patton and reduction of left ventricular cavity size peaking at 65%. No wall motion abnormalities were present. Conclusion: Exercise stress echo with no EKG criteria for ischemia at a high workload. No clinical angina noted. Normal stress and resting echocardiographic images noted. _ Ordering Physician: Linwood Arana Referring Physician: Linwood Arana Performed By: Carmella Oliveira MANNIE 10/31/216 Date Linwood Arana MD CC: Dr. Linwood Arana MD; Dr. Karley Mckeon DO Date Dictated: 10/31/21 1106 Date Transcribed: 10/31/211646 Casting Wheel Operator: Zak Mckeon DO Work Phone: Start: 10-18-2021 End: 10-18-2021 Cardiology Visit Report Procedure Note: See Note; NOTES: [facility] [address] [place], [place] [address] OFFICE VISIT Date of Service: 10/18/21 MR#: [id number] Acct: [id number] Name: SYED ALEGRE Rep #: [id number] : 1965 Provider: Dr. Linwood Arana MD Age/Sex: 56/M Location: [facility] Status: Signed HPI HPI History of Present Illness Details: 56-year-old man with a history of gastroesophageal reflux disease history of COVID in August 2019 who was noted to have an abnormal EKG prior to colonoscopy and was asked to come in for cardiac evaluation. He denies any chest pain or shortness of breath or paroxysmal nocturnal dyspnea or pedal edema no neck arm or jaw discomfort suggest angina. His EKG from August 2021 demonstrated sinus rhythm with a rate of 72 bpm, sinus arrhythmia and nonspecific ST-T wave changes. He has had no cardiac symptomatology his physical exam today is unremarkable. Intake Vital Signs 10/18/21 08:28 10/18/21 10:39 Height 5 ft 7 in Weight: 179 lb BMI 28.0 BP 133/91 H 136/91 H Respiration 16 Pulse 70 Pulse Oximetry (%) 100 Intake Visit Reasons: ABNORMAL EKG Allergies codeine Adverse Reaction (Verified 10/18/21 08:29) Nausea Medications therapeutic multivitamin 1 ea PO DAILY 05/13/17 [History Confirmed 10/18/21] loratadine 10 mg capsule 10 mg PO DAILY 11/12/19 [History Confirmed 10/18/21] cholecalciferol (vitamin D3) 25 mcg (1,000 unit) capsule 25 mcg PO DAILY 11/18/19 [History Confirmed 10/18/21] famotidine 20 mg tablet 20 mg PO DAILY 11/18/19 [History Confirmed 10/18/21] albuterol sulfate 1 - 2 puff INHALATION Q6H PRN 08/28/21 [History Confirmed 10/18/21] ascorbic acid (vitamin C) [Vitamin C] 500 mg PO DAILY 08/28/21 [History Confirmed 10/18/21] zinc 50 mg PO DAILY 08/28/21 [History Confirmed 10/18/21] metaxalone 800 mg tablet 800 mg PO ONCE PRN tab 10/11/21 [History Confirmed 10/18/21] rizatriptan 10 mg tablet 10 mg PO ONCE PRN tab 10/11/21 [History Confirmed 10/18/21] Ejection fraction %: 60 to 64 PFSH Medical History Abnormal electrocardiogram Allergic rhinitis Arthritis Asthma Dietary restriction Encounter for screening for malignant neoplasm of colon Fibromyalgia GERD (gastroesophageal reflux disease) Migraine Muscle tension headache Plantar fasciitis Wears glasses Family History Father Diabetes Atrial fibrillation Grandmother Diabetes Other Asthma Heart disease Hypertension Social History Smoking Status: Never smoker ROS Const Const: Negative for fatigue, weakness, headache(s), frequent falls, difficulty sleeping or excessive sweating Eyes Eyes: Negative for loss of peripheral vision, transient loss of vision, blurry vision, double vision or tunnel vision ENT ENT: Negative for headache(s), dizziness, Nosebleed/epistaxis or balance problems Cardio Chest Pain: No Palpitations: No Edema: None Muscle aches with walking: None Resp Respiratory: Negative for SOB with activity, SOB at rest, SOB orthopnea SOB lying down, Cough or paroxysmal nocturnal dyspnea GI GI: Negative nausea, vomiting, heartburn or black,tarry stools : Negative for hematuria Musc Musc: Negative for muscle aches/ myalgia, muscle weakness, joint pain or balance problems Skin Skin: Negative non-healing lesions, rash or unusual bruising Neuro Neuro: Negative for dizziness, lightheadedness, near syncope, syncope, orthostatic symptoms, frequent falls, headache(s), weakness, blurry vision, double vision or lack of coordination Celestino Hematologic/Lymphatic: Negative for easy bleeding or easy bruising Endo Endo: Negative for fatigue, excessive sweating or increased thirst/drinking Psych Psych: Negative for anxiety or depression Allergy Allergy/Immunology: Negative for hives and Negative for rash Cardiology Exam Const Appearance: cooperative, healthy appearing, no acute distress, well developed and well groomed Nutritional Appearance: average body habitus and well nourished Orientation: alert, awake and oriented x3 Head Head: normal to inspection, normocephalic and atraumatic Ears: hearing grossly normal bilaterally and external ears normal Nose: external nose normal, nares normal, nasal mucous membranes and turbinates normal, septum normal and no nasal discharge Face and Sinus: face symmetric Mouth: oral mucosae normal, tongue normal, oropharynx normal and moist mucous membranes Teeth and gingiva: dentition normal Throat: posterior oropharynx normal, tonsils normal and uvula midline Eyes General: appearance normal, both eyes and all related structures Eyelids: eyelids normal Conjunctivae: conjunctivae normal Pupils: PERRL, normal by confrontation and accommodation normal EOM: EOM intact bilaterally Neck Neck: normal visual inspection, trachea midline and no JVD JVD: +5 Carotids: normal carotid upstroke and bounding pulses Chest Chest inspection: normal inspection of the chest, symmetric chest movement and normal respiratory effort Auscultation: Bilateral: Clear to Auscultation Cardio Palpation: normal PMI Rate: regular rate Rhythm: regular rhythm Heart sounds: S1 normal, S2 normal and normal, physiologic split S2; Negative rub, gallop or murmur GI GI: normal to inspection, soft, no hepatosplenomegaly and bowel sounds present Neuro General: patient alert, patient awake, patient oriented x3, gait normal, moves all extremities and no focal sensory deficit Skin Skin: no rashes or lesions noted Extremities Pulses: Normal: Right Femoral Pulse, Left Femoral Pulse, Right Dorsalis Pedis Pulse, Left Dorsalis Pedis Pulse, Right Posterior Tibial Pulse, Left Posterior Tibial Pulse, Right Radial Pulse and Left Radial Pulse Lower Extremity Edema: None: Bilateral Musculoskel Musculoskeletal: No joint tenderness Psych Psychological: normal affect Supplemental Info Supplemental Information STRESS ECHOCARDIOGRAM 05/13/2017 EKG Data Baseline ECG demonstrates normal sinus rhythm with a rate of 86 beats per minute. Normal intervals are noted. The resting blood pressure was 126/82. The patient exercised according to the regular Ian protocol for a total duration of 8min. The maximum heart rate attained was 196 beats per minute. This was 115% of maximum predicted heart rate. The patient exercised into stage 3 of the Ian protocol. During stress, there were no ST or T wave changes noted to suggest ischemia. At peak exercise, upsloping ST changes only were noted, which did not meet the criteria for ischemia. No arrhythmias noted. No clinical angina was noted. Interpretation Summary Normal resting LV systolic function. Nonstenotic valves. With stress, the LV size decreased and all segments augmented normally. The LVEF increased from 60% to 70%. Negative for ischemia at 115% of MPHR and at 10.1 METS. Test terminated due to leg fatigue Labs: No Data to Display Diagnostics: Electrocardiogram Chest X-Ray Pulmonary: Pulmonary Function Test Assessment and Plan Assessment and Plan (1) Encounter for pre-operative cardiovascular clearance: Status: Acute Orders: Orders: Stress Test Echo w/o Contrast Today Plan - Dr. Linwood Arana MD: From the preoperative cardiovascular standpoint he appears to be stable for his intended colonoscopy. He has had a previous stress echocardiogram from 2017 where he exercised to 10.1 metabolic equivalents. He does have mild mitral valve issues and my recommendation will be to repeat the stress echocardiogram to make sure that no significant abnormalities are noted. I however think that his EKG changes are benign. If any significant abnormalities are noted on the stress echocardiogram further recommendations will be made. Plan Details Follow Up: prn Coding Level of Care Code Off vis,new,level 3 Diagnoses Encounter for pre-operative cardiovascular clearance Z01.810 Coding Level of Care Code Off vis,new,level 3 Diagnoses Encounter for pre-operative cardiovascular clearance Z01.810 10/18/21 1100 <Electronically signed by Linwood Arana MD> Date Linwood Arana MD Cosigner Signature: Date (if applicable) CC: Dr. Karley Mckeon, DO Karley Mckeon DO Work Phone: Start: 08-29-2021 End: 08-31-2021 12 Lead EKG Procedure Note: See Note; NOTES: [facility] [address] [place] [address] 12 Lead EKG 08/29/21 1239 MR#: [id number] Acct: [id number] Name: SYED ALEGRE Rep #: [id number] : 1965 56 From: Benjy Mccrary MD Attending Dr: Nicholas Jean-Baptiste DO Status: PRE SD C Ordering Dr: Wilfredo Dwyer MD Date: 08/29/21 Location: [facility] Sex: M C Admitted: Test Reason : PREOP Blood Pressure : / mmHG Vent. Rate : 072 BPM Atrial Rate : 072 BPM P-R Int : 130 ms QRS Dur : 086 ms QT Int : 392 ms P-R-T Axes : 062 070 004 degrees QTc Int : 429 ms Sinus rhythm with marked sinus arrhythmia Nonspecific ST and T wave abnormality Abnormal ECG Confirmed by COURTNEY NIX, BENJY ([id number]), editorial manager YUDI OCONNOR ([id number]) on 08/31/2021 10:08:51 AM Referred By: Nicholas Jean-Baptiste Confirmed By:BENJY MCCRARY MD 08/31/21 1008 Date Benjy Mccrary MD CC: Dr. Wilfredo Dwyer MD; Dr. Karley Mckeon DO; Nicholas Jean-Baptiste DO Signed Karley Mckeon DO Work Phone: Start: 07-11-2021 End: 07-11-2021 Pulmonary Visit Report Comments: See Note; NOTES: [facility] of [address] [place] [address] OFFICE VISIT Date of Service: 07/11/21 MR#: [id number] Acct: [id number] Name: SYED ALEGRE Rep #: [id number] : 1965 Provider: Dr. Ian Hanson MD Age/Sex: 56/M [facility] Status: Signed Assessment and Plan Assessment and Plan (1) Asthma: Status: Acute Qualifiers: Asthma severity: moderate Asthma persistence: persistent Asthma complication type: uncomplicated Qualified Code(s): J45.40 - Moderate persistent asthma, uncomplicated (2) Lung nodule: Status: Acute Plan - Dr. Ian Hanson MD: Patient appears to be doing okay from a respiratory standpoint. Patient is not currently on any maintenance inhalers, likely secondary to the chronic use of allergy meds. Patient is aware that symptoms may be more profound in the spring and fall. Signs and symptoms of exacerbation and poor control were reviewed in detail. Patient voiced understanding. Given relative control without maintenance inhalers, will follow up on an annual basis. Patient's lung nodule has been stable for over a year at 4 mm. There is no reason to continue surveillance given his low risk status. Call with issues. HPI 6 M FU Details: Patient is a 56-year-old male, currently under care of Dr. Mckeon, who presents for evaluation secondary to routine follow-up. Since last visit, patient denies any ER visits, hospitalizations or prednisone burst. Patient overall feels subjectively unchanged. Patient states he has not been using any of his maintenance inhaler since the summertime. Patient states that he is not having any nocturnal cough or limitations in exercise despite not using maintenance inhalers. Patient has stated that the Symbicort was not working previously, but discontinued the Spiriva to see what would happen. Given his relative stability, this has not been reinitiated. Patient is not requiring any emergency inhalers. Patient is reporting that he is fully vaccinated. Patient is not reporting any fevers, chills, nausea or vomiting. No lower extremity edema has been reported. Patient states he has been taking his allergy medications on a daily basis with good response. Review of systems otherwise negative from a constitutional, HEENT, respiratory, cardiovascular, GI, genitourinary, musculoskeletal, skin, neurologic, psychiatric and hematologic system unless stated above. Intake Vital Signs 07/11/21 06:36 Height 5 ft 7 in Weight: 83.007 kg BMI 28.6 BP 135/89 H Blood Pressure Location Lt brachial Position Sitting Respiration 18 Pulse 70 Pulse Source Monitor Temp 36.3 C L Temperature Source Tympanic Pulse Oximetry (%) 98 Oxygen Delivery Method room air Intake Visit Reasons: 6 M FU Allergies codeine Adverse Reaction (Verified 07/11/21 06:33) Nausea Medications therapeutic multivitamin 1 ea PO DAILY 05/13/17 [History Confirmed 07/11/21] loratadine 10 mg capsule 10 mg PO DAILY 11/12/19 [History Confirmed 07/11/21] cholecalciferol (vitamin D3) 25 mcg (1,000 unit) capsule 25 mcg PO DAILY 11/18/19 [History Confirmed 07/11/21] diphenhydramine HCl 25 mg tablet 25 mg PO QHS 11/18/19 [History Confirmed 07/11/21] famotidine 20 mg tablet 20 mg PO DAILY 11/18/19 [History Confirmed 07/11/21] levalbuterol tartrate 45 mcg/actuation aerosol inhaler 2 inh INHALATION Q6H #15 g 06/06/20 [Rx Confirmed 07/11/21] tiotropium bromide 1.25 mcg/actuation mist for inhalation 2 puff INHALATION Q24H #4 g 10/04/20 [Rx Confirmed 07/11/21] PFSH Medical History Allergic rhinitis Asthma Cardiac arrhythmia Cough Fibromyalgia GERD (gastroesophageal reflux disease) Migraine Mitral valve prolapse Muscle tension headache Plantar fasciitis SOB (shortness of breath) Surgical History No pertinent past surgical history Family History Father Diabetes Atrial fibrillation Grandmother Diabetes Other Asthma Heart disease Hypertension Social History Smoking Status: Never smoker Review of Systems Resp Respiratory: Yes as per HPI Exam Const Constitutional: Positive conversant, cooperative, in no acute respiratory distress, healthy appearing, well developed, well nourished and good hygiene Head Head: Yes normocephalic, Yes atraumatic and No cyanosis of lips/distal nose Eyes Eye: Positive clear conjunctiva; Negative nystagmus, scleral abnormality or cataract present Ears Ear: Positive hearing normal and external ears normal; Negative hard of hearing Neck Neck: Positive normal visual inspection, full ROM and trachea midline; Negative lymphadenopathy or JVD Chest Wall Chest: Positive normal inspection of the chest and symmetric chest movement; Negative crepitus or tenderness Resp lung sounds: Positive clear to auscultation, good air exchange and normal expiratory time; Negative wheezes, wheeze present on forced exhalation, rhonchi, rales, dullness or use of accessory muscles Cardio Cardiac: Positive regular rate, regular rhythm, S1 normal and S2 normal; Negative murmur, rub or gallop GI GI: Positive normal to inspection and normal bowel sounds; Negative distended, ascites or epigastric tenderness Musc Musculoskeletal: Positive steady gait; Negative using an assistive device for ambulation, kyphosis or scoliosis Skin Pulmonary Skin Exam: Positive intact; Negative lesion, rash, ulcers or erythema Pulses Pulse: Yes radial pulses present Extremities Extremities: Yes capillary refill normal, No clubbing, No cyanosis and No edema Neuro Neurologic: Yes no focal neuro deficits, Yes conversant, Yes cooperative, Yes normal cognition, Yes normal coordination, Yes normal concentration and Yes understands questions Lymph Lymphatic: No lymphadenopathy Psych Appearance: Positive grossly normal Mental Status: Positive mental status grossly normal Mood: Positive congruent mood Affect: Positive normal affect Coding Level of Care Code Off vis,est,level 3 Diagnoses Asthma J45.40 Asthma severity: moderate Asthma persistence: persistent Asthma complication type: uncomplicated Lung nodule R91.1 07/11/21 0706 <Electronically signed by Ian Hanson MD> Date Ian Hanson MD Cosigner Signature: Date (if applicable) CC: Dr. Karley Mckeon, DO Karley Mckeon DO Work Phone: Start: 04-24-2021 End: 04-24-2021 Chest without Contrast Comments: See Note; NOTES: [facility] Services [address] [place] [address] Chest without Contrast MR#: [id number] Acct: [id number] Name: SYED ALEGRE Rep #: [id number] : 1965 M 55 From: Enrique mcduffie MD PCP: Dr. Karley Mckeon DO Status: REG CLI Study: Chest without Contrast Date of Exam: 04/24/21 Exam# [id number] Ordering Dr: Liz Lopez PRECISION INSTRUMENT AND TOOL MAKER PRECISION INSTRUMENT AND TOOL MAKER-C STUDY: CT CHEST WITHOUT CONTRAST REASON FOR EXAM: Male, 55 years old. Follow up 4.1 mm nodule RADIATION DOSAGE (If Supplied By Facility): CTDIvol = ( 11.18 ) mGy, DLP = ( 438.72 ) mGycm TECHNIQUE: Transaxial imaging was performed without the administration of intravenous contrast material. Multiplanar coronal and sagittal images were reformatted. Individualized dose optimization techniques were used for this CT. COMPARISON: Comparison is made with prior study dated 04/22/2020. FINDINGS: Stable small benign-appearing bilateral axillary lymph nodes. Stable mild degree of emphysematous changes. Stable 4 mm faint nodule seen in the peripheral lateral aspect of the right upper lobe as seen on axial image #44. There is no demonstrated pleural abnormality. Normal heart and pericardium. Normal mediastinum. Normal hilar regions. Normal unenhanced pulmonary arteries. Normal aorta arch and descending thoracic aorta. Normal osseous structures. Stable appearance of the cysts within the liver. CT/Chest without Contrast IMPRESSION: Stable 4 mm nodule in the lateral aspect of the right upper lobe. Electronically Signed: Enrique Narvaez MD at 9:06 EST , Service support , CC: PATSY Lopez; Dr. Karley Mckeon DO Casting Wheel Operator: Signed Karley Mckeon DO Work Phone: Start: 06-06-2020 End: 06-06-2020 Pulmonary Visit Report Comments: See Note; NOTES: [facility] of [place] [address] [address] [address] [place] [address] OFFICE VISIT Date of Service: 06/06/20 MR#: [id number] Acct: [id number] Name: SYED ALEGRE Rep #: [id number] : 1965 Provider: PATSY Lopez Age/Sex: 55/M Location: [facility] [place] [facility].PMW Status: Signed Assessment Plan 1. Moderate persistent asthma without complication J45.40 Plan No signs of exacerbation of asthma today. Not currently requiring maintenance medications. No additional testing at this time. Contact the office with any signs of new or worsening symptoms. Follow-up in [address] Hanson. 2. Lung nodule R91.1 Plan Continue to follow a 4.1 mm nodule in the right upper lobe. Repeat CT of the chest in 1 year. Orders Orders: Chest without Contrast 04/24/21 Medications New: albuterol sulfate 90 mcg/actuation (ProAir HFA) 2 puffs inhalation Q6H PRN 18 grams 6RF shortness of breath or wheezing 3. Shortness of breath R06.02 Plan We discussed this may be related to deconditioning. The patient may begin a walking program, he was encouraged to start with a short distance and listen to his body. If he is able to walk further than increase. Initially start with only walking to days per week. Once he is able to walk a mile or so 2 days a week he may increase to 3 days a week, as long as his shortness of breath does not become unbearable. He has been encouraged to contact the office with any new or worsening symptoms in the meantime. Plan Detail Follow Up 6 Months (BWA) HPI 6 M FU: Chief Complaint: Shortness of breath HPI Comments Details: This patient presents to the office today for a routine follow-up on his asthma. He is ambulatory and currently on room air. He has not been seen in the ED or urgent care for any respiratory illnesses since his last office visit. He has not required any antibiotics or prednisone for any breathing problems. He stopped taking these Symbicort, did not find it to be helpful. He continues with the Spiriva, he thinks it is more helpful than the Symbicort was. He has not recently needed to use his albuterol. He continues to have shortness of breath, worse with exertion. He is slightly concerned because it is not completely resolved and this has been about 9 months. Currently he denies any cough, sputum production or hemoptysis. He denies any wheezing, chest tightness, chest pain or palpitations. He denies any fever, chills or body aches. He would like to know if it would be safe to resume a walking program. Prior to his illness that occurred back in August (suspicious for COVID-19) he was walking 2 to 3 miles daily. He would like to begin a walking program, understands that it would initially have to be a shorter distance. Test results personally reviewed with the patient: CT of the chest without contrast ordered by his PCP, completed on April 22, 2020. Shows stable faintly seen 4.1 mm nodule in the lateral aspect of the right upper lobe. He recommends repeating a CT of the chest in 1 year. Intake Vital Signs 06/06/20 BP 134/86 H 06/06/20 Blood Pressure Location Lt brachial 06/06/20 Height 5 ft 7 in 06/06/20 Weight: 167 lb 06/06/20 BMI 26.2 06/06/20 BP 150/93 H 06/06/20 Blood Pressure Location Lt brachial 06/06/20 Position Sitting 06/06/20 Respiration 18 06/06/20 Pulse 68 06/06/20 Pulse Source Monitor 06/06/20 Temp 98.4 F 06/06/20 Temperature Source Tympanic 06/06/20 Pulse Oximetry (%) 98 06/06/20 Oxygen Delivery Method room air Intake Visit Reasons: 6 M FU Allergies codeine Adverse Reaction (Verified 06/06/20 08:31) Nausea Medications Multivitamin,Therapeutic [Thera] 1 ea PO DAILY 05/13/17 [History Confirmed 06/06/20] loratadine 10 mg capsule 10 mg PO DAILY 11/12/19 [History Confirmed 06/06/20] cholecalciferol (vitamin D3) 25 mcg (1,000 unit) capsule 25 mcg PO DAILY 11/18/19 [History Confirmed 06/06/20] diphenhydramine HCl 25 mg tablet 25 mg PO QHS 11/18/19 [History Confirmed 06/06/20] famotidine 20 mg tablet 20 mg PO DAILY 11/18/19 [History Confirmed 06/06/20] tiotropium bromide 1.25 mcg/actuation mist for inhalation 2 puff INHALATION Q24H #4 g 03/21/20 [Rx Confirmed 06/06/20] albuterol sulfate 90 mcg/actuation aerosol inhaler 2 puff INHALATION Q6H PRN #18 g 06/06/20 [Rx Confirmed 06/06/20] [facility] Medical History (Reviewed 06/06/20 @ 08:56 by Liz Lopez PRECISION INSTRUMENT AND TOOL MAKER, PRECISION INSTRUMENT AND TOOL MAKER-C) GERD (gastroesophageal reflux disease) (Acute) Migraine (Acute) Muscle tension headache (Acute) Mitral valve prolapse (Acute) Cardiac arrhythmia (Acute) Allergic rhinitis (Acute) Asthma (Acute) Plantar fasciitis (Acute) Fibromyalgia (Acute) Cough (Resolved) SOB (shortness of breath) (Resolved) Surgical History (Reviewed 06/06/20 @ 08:56 by Liz Lopez PRECISION INSTRUMENT AND TOOL MAKER, PRECISION INSTRUMENT AND TOOL MAKER-C) No pertinent past surgical history (Acute) Family History (Reviewed 06/06/20 @ 08:56 by Liz Lopez PRECISION INSTRUMENT AND TOOL MAKER, PRECISION INSTRUMENT AND TOOL MAKER-C) Father Diabetes Atrial fibrillation Grandmother Diabetes Other Asthma Heart disease Hypertension Social History (Updated 06/06/20 @ 15:17 by Liz Lopez NP, PRECISION INSTRUMENT AND TOOL MAKER-C) Smoking Status: Never smoker Review of Systems Const CONSTITUTIONAL: No anorexia, No body ache, No chills, No daytime sleepiness, No fever(s), No night sweats, No stops breathing during sleep, No weight loss, No weight gain, No sleeping in chair, No orthopnea, No fatigue, No headache(s), No frequent colds, No seasonal allergies EETM Ear Nose Throat Mouth: No hoarseness, No Dry mouth in morning, No change in vision, No itchy eyes, No eye pain, No Swallowing Difficulty, No ear pain, No nose bleed, No headache(s), No mouth pain, No nasal congestion, No nasal discharge, No sinus pain, No sinus pressure, No sore throat Cardio Cadriovascular: No chest pain, No chest pain at rest, No chest pain with activity, No irregular heart rhythm, No shortness of breath when lying down, No palpitations Resp Respiratory: Yes as per HPI Gastro Gastrointestional: Negative bloody stools, change in appetite, difficulty swallowing, reflux, hematemesis, melena stool, loose stool or constipation Genitourinary: Negative blood in urine, nocturia or pain with urination Musc Musculoskeletal: Negative body pain, back pain or neck pain Skin/Breast Skin/Breast: No dry skin, No itching, No unusual bruising, No breast lump Neuro Neurological: Negative restless legs, confusion or weakness Psych Psychocological: Negative abnormal sleep pattern, anxiety, thoughts of hurting self/others or hopelessness Lymph Lymphatic: No easy bleeding, No easy bruising Exam Const Constitutional: Positive conversant, cooperative, in no acute respiratory distress, healthy appearing, well developed, well nourished and good hygiene Head Head: Yes normocephalic, Yes atraumatic, No cyanosis of lips/distal nose Eyes Eye: Positive clear conjunctiva; negative nystagmus Ears Ear: Positive hearing normal and external ears normal; negative hard of hearing Neck Neck: Positive normal visual inspection, full ROM and trachea midline; negative lymphadenopathy or JVD Chest Wall Chest: Positive normal inspection of the chest and symmetric chest movement; negative crepitus or tenderness Resp lung sounds: Positive clear to auscultation, good air exchange and normal expiratory time; negative wheezes, wheeze present on forced exhalation, rhonchi, rales or use of accessory muscles Cardio Cardiac: Positive regular rate, regular rhythm, S1 normal and S2 normal; negative murmur, rub or gallop GI GI: Positive normal to inspection; negative distended, ascites or epigastric tenderness Genitourinary: Positive deferred Musc Musculoskeletal: Positive steady gait; negative using an assistive device for ambulation, kyphosis or scoliosis Skin Pulmonary Skin Exam: Positive intact; negative lesion, rash, ulcers or erythema Pulses Pulse: Yes radial pulses present Extremities Extremities: Yes capillary refill normal, No clubbing, No cyanosis, No edema Neuro Neurologic: Yes no focal neuro deficits, Yes conversant, Yes cooperative, Yes normal cognition, Yes normal coordination, Yes normal concentration, Yes understands questions Psych Appearance: Positive grossly normal Mental Status: Positive mental status grossly normal Mood: Positive congruent mood Affect: Positive normal affect Coding Level of Care Code Off vis,est,level 3 Diagnoses Moderate persistent asthma without complication J45.40 ?Asthma severity: moderate ?Asthma persistence: persistent ?Asthma complication type: uncomplicated Lung nodule R91.1 Shortness of breath R06.02 06/06/20 1517 <Electronically signed by Liz Lopez NP [employer]CISION INSTRUMENT AND TOOL MAKER-C> Date Liz Lopez NP, NP-C Cosigner Signature: Date (if applicable) CC: DO Karley Orantes DO Work Phone: Start: 04-22-2020 End: 04-22-2020 Chest without Contrast Comments: See Note; NOTES: [facility] Imaging Services [address] [place] [address] Chest without Contrast MR#: [id number] Acct: [id number] Name: SYED ALEGRE Rep #: [id number] : 1965 M 54 From: Enrique mcduffie MD PCP: Dr. Karley Mckeon DO Status: REG CLI Study: Chest without Contrast Date of Exam: 04/22/20 Exam# [id number] Ordering Dr: Karley Mckeon DO STUDY: CT CHEST WITHOUT CONTRAST REASON FOR EXAM: Male, 54 years old. Lung nodule follow up, no new problems. Hx asthma. RADIATION DOSAGE (If Supplied By Facility): CTDIvol = ( 8.99 ) mGy, DLP = ( 343.88 ) mGycm TECHNIQUE: Transaxial imaging was performed without the administration of intravenous contrast material. Multiplanar coronal and sagittal images were reformatted. Individualized dose optimization techniques were used for this CT. COMPARISON: Comparison is made with prior study dated 10/21/2011. FINDINGS: Stable small benign-appearing bilateral axillary lymph nodes. Mild degree of emphysematous changes. Stable faintly seen 4.1 mm nodule in the lateral aspect of the right upper lobe as seen on axial image #38. There is no demonstrated pleural abnormality. Normal heart and pericardium. Normal mediastinum. Normal hilar regions. Normal unenhanced pulmonary arteries. Normal aorta arch and descending thoracic aorta. Normal osseous structures. Stable appearance of the bilateral hepatic cysts. CT/Chest without Contrast IMPRESSION: Stable examination. 12 month follow-up examination is recommended. Electronically Signed: Enrique Narvaez, at 11:06 EST , Service support , CC: Dr. Karley Mckeon, Casting Wheel Operator: Signed Karley Mckeon Work Phone: Start: 12-22-2019 End: 12-22-2019 Pulmonary Visit Report Comments: See Note; NOTES: [facility] [place] [address] [place] [address] OFFICE VISIT Date of Service: 12/22/19 MR#: [id number] Acct: [id number] Name: SYED ALEGRE Rep #: [id number] : 1965 Provider: Dr. Ian Hanson MD Age/Sex: 54/M Location: [facility] [place].W Status: Signed Assessment Plan Problems 1. Moderate persistent asthma without complication J45.40 Plan Patient continues to be resistant to therapy. Will add on Spiriva in addition to Symbicort given the high PRN albuterol requirements. Did discuss the possibility of COVID testing, but patient sta rolly that this would likely not change to therapy so he was not excited about testing. Patient does use precautions at baseline. Patient was given samples and personally instructed on the use of the Respimat inhaler. Patient will call if refills are needed. If patient continues to have groundglass opacities, autoimmune work-up would be indicated. Will attempt to stepdown therapy for asthma at the next visit if continues to do well. Add anticholinergic therapy. Continue Symbicort. Call with exacerbations. Medications New: tiotropium bromide 1.25 mcg/actuation (Spiriva Respimat) 2 puffs inhalation Q24H 4 grams 2RF Plan Detail Follow Up 6 Months ([facility]) HPI 1 M FU: Chief Complaint: Shortness of breath Details: Patient is a 54-year-old male, currently under the care of Dr. Mckeon, who presents for evaluation secondary to continued shortness of breath. Since last visit, patient denies any ER visits, hospitalizations or prednisone burst. Patient overall feels subjectively improved compared to previous. Patient reports he has been compliant with his Symbicort therapy. Patient does report some mild hoarseness, but otherwise this is well-tolerated. Patient does not believe that he is missing any doses. Patient states that this has significantly helped his breathing. Unfortunately, patient is still requiring albuterol 4-5 times a week. This is typically at night the patient does report subjective improvement after its use. Patient believes the nebulizer works better than the MDI. Patient is not reporting any new symptoms such as rashes, lower extremity edema or fever. Patient does state that he has a history of inflammatory joints over the course of his lifetime. Patient has not been formally diagnosed with any autoimmune type issues. Patient is not having any significant other complications noted. Patient is occasionally having a nonproductive cough, but describes this as only occasional. Testing personally reviewed with the patient Complete PFT (11/23/2019): Normal pulmonary function test with some hyperinflation (FVC 103%, FEV1 102%, TLC 117%, DLCO 118%) Intake Vital Signs 12/22/19 Weight: 75.296 kg 12/22/19 BP 136/93 H 12/22/19 Blood Pressure Location Rt brachial 12/22/19 Position Sitting 12/22/19 Respiration 18 12/22/19 Pulse 75 12/22/19 Pulse Source Monitor 12/22/19 Temp 36.6 C 12/22/19 Temperature Source Tympanic 12/22/19 Pulse Oximetry (%) 98 12/22/19 Oxygen Delivery Method room air Intake Visit Reasons: 1 M FU Allergies codeine Adverse Reaction (Verified 11/18/19 06:34) Nausea [facility] Medical History (Updated 12/22/19 @ 11:[address] Ian Hanson MD) GERD (gastroesophageal reflux disease) (Acute) Migraine (Acute) Muscle tension headache (Acute) Mitral valve prolapse (Acute) Cardiac arrhythmia (Acute) Allergic rhinitis (Acute) Asthma (Acute) Plantar fasciitis (Acute) Fibromyalgia (Acute) Cough (Resolved) SOB (shortness of breath) (Resolved) Surgical History (Updated 11/18/19 @ 06:59 by Ana Luisa Contreras) No pertinent past surgical history (Acute) Social History (Updated 12/22/19 @ 11:[address] Ian Hanson MD) Smoking Status: Never smoker Review of Systems Const CONSTITUTIONAL: No anorexia, No body ache, No chills, No daytime sleepiness, No fever(s), No night sweats, No stops breathing during sleep, No weight loss, No weight gain, No sleeping in chair, No orthopnea, No fatigue, No headache(s), No frequent colds, No seasonal allergies, No other EETM Ear Nose Throat Mouth: No hoarseness, No Dry mouth in morning, No change in vision, No itchy eyes, No eye pain, No Swallowing Difficulty, No ear pain, No nose bleed, No headache(s), No mouth pain, No nasal congestion, No nasal discharge, No sinus pain, No sinus pressure, No sore throat, No other Cardio Cadriovascular: No chest pain, No chest pain at rest, No chest pain with activity, No irregular heart rhythm, No shortness of breath when lying down, No palpitations, No other Resp Respiratory: Yes as per HPI, Yes chest tightness Gastro Gastrointestional: Negative bloody stools, change in appetite, difficulty swallowing, reflux, hematemesis, melena stool, loose stool, constipation or other Genitourinary: Negative blood in urine, nocturia, pain with urination or other Musc Musculoskeletal: Negative body pain, back pain, neck pain or other Skin/Breast Skin/Breast: No dry skin, No itching, No unusual bruising, No breast lump, No other Neuro Neurological: Negative restless legs, confusion, weakness or other Psych Psychocological: Negative abnormal sleep pattern, anxiety, thoughts of hurting self/others, hopelessness or other Lymph Lymphatic: No easy bleeding, No easy bruising, No other Exam Const Constitutional: Positive conversant, cooperative, in no acute respiratory distress, healthy appearing, well developed, well nourished and good hygiene Head Head: Yes normocephalic, Yes atraumatic, No cyanosis of lips/distal nose Eyes Eye: Positive clear conjunctiva; negative nystagmus, scleral abnormality or cataract present Ears Ear: Positive hearing normal and external ears normal; negative hard of hearing Nose Nose: Yes external nose normal, No nasal polyp, Yes septum normal Mouth Mouth: Positive oral mucosae normal, no lesions and good dentition; negative oral thrush present or post nasal drip Mallampati Score: II: Mallampati Score Neck Neck: Positive normal visual inspection, full ROM and trachea midline; negative lymphadenopathy or JVD Chest Wall Chest: Positive normal inspection of the chest and symmetric chest movement; negative crepitus or tenderness Resp lung sounds: Positive clear to auscultation, good air exchange and normal expiratory time; negative wheezes, wheeze present on forced exhalation, rhonchi, rales, dullness to percussion or use of accessory muscles Cardio Cardiac: Positive regular rate, regular rhythm, S1 normal and S2 normal; negative murmur, rub or gallop GI GI: Positive normal to inspection and normal bowel sounds; negative distended, ascites or epigastric tenderness Genitourinary: Positive deferred Musc Musculoskeletal: Positive steady gait; negative using an assistive device for ambulation, kyphosis or scoliosis Skin Pulmonary Skin Exam: Positive intact; negative lesion, rash, ulcers or erythema Pulses Pulse: Yes radial pulses present Extremities Extremities: Yes capillary refill normal, No clubbing, No cyanosis, No edema Neuro Neurologic: Yes conversant Lymph Lymphatic: No lymphadenopathy Psych Appearance: Positive grossly normal Mental Status: Positive mental status grossly normal Mood: Positive congruent mood Affect: Positive normal affect Coding Level of Care Code Off vis,est,level 4 Diagnoses Moderate persistent asthma without complication J45.40 ?Asthma severity: moderate ?Asthma persistence: persistent ?Asthma complication type: uncomplicated 12/22/19 1105 <Electronically signed by Ian Hanson MD> Date Ian Hanson MD Cosigner Signature: Date (if applicable) CC: DO Karley Orantes Start: 11-23-2019 End: 11-23-2019 Pulmonary Function Report Comp Comments: See Note; NOTES: [facility] Services/Neurology [address] [place] [address] MR#: [id number] Acct: [id number] Name: SYED ALEGRE Rep #: [id number] : 1965 54 From: Ian Hanson MD Referring Dr: Ian Hanson MD Status: REG CLI Location: [facility] Date: 11/23/19 Sex: M C COMPLETE PULMONARY FUNCTION TEST INTERPRETATION Brief HPI: Patient is a 54 year old male, currently under the care of myself, who presents to [facility] for complete pulmonary function tests secondary to diagnosis of dyspnea. Respiratory therapist reports good effort and reproducible results. Interpretation: Forced expiration spirometry shows no large airways obstructive ventilatory defect with an FEV1 of 102% predicted. There is no significant bronchodilator response by strict ATS criteria. Spirograms are of good quality and plateau normally. The respiratory flow volume loop shows a normal pattern. Lung volumes by body plethysmography show an elevated total lung capacity at 7.07 L, 117% predicted. All other lung volumes are increased symmetrically. Diffusion capacity by carbon monoxide is normal at 118% predicted. The airway resistance is normal. No previous pulmonary function tests were available for review. Impression: These pulmonary function tests are within normal limits. Hyperinflation may be a normal physiologic variant. 11/23/19 1510 <Electronically signed by Ian Hanson MD> Date Ian Hanson MD CC: Dr. Ian Hanson MD; Dr. Karley Mckeon, Date Dictated: 11/23/1941 Date Transcribed: 11/23/19941 Casting Wheel Operator: HERI Signed Karley Mckeon Start: 11-18-2019 End: 11-18-2019 Pulmonary Visit Report Comments: See Note; NOTES: [facility] of [address] [place] [address] OFFICE VISIT Date of Service: 11/18/19 MR#: [id number] Acct: [id number] Name: SYED ALERGE Rep #: [id number] : 1965 Provider: Dr. Ian Hanson MD Age/Sex: 54/M Location: [facility] Status: Signed Assessment Plan 1. Shortness of breath R06.02 Plan Patient's NIOX was within normal limits. Clinical suspicion for exacerbation of underlying mild intermittent asthma by a respiratory virus in August with slow recovery. Given normal NIOX, will not treat with a prednisone burst. Patient should continue Symbicort therapy for now. Obtain complete PFT for quantification clarification of lung function. Further recommendations once this information is available. CTA of the chest does show a small groundglass opacity, but this is thought to be secondary to acute infection. Patient does not have a repeat CT scan already ordered at 6 months. Obtain complete PFT. Continue Symbicort. No prednisone burst. Await repeat CT in 6 months Orders Orders: NIOX Today Pulmonary Function Test (Comp) Today Plan Detail Other Medications New: budesonide-formoterol 160-4.5 mcg/actuation (Symbicort) 2 puffs inhalation BID 10.2 grams 6RF Follow Up 1 Month (BWA) HPI Shortness of breath: Chief Complaint: Shortness of breath Details: Patient is a 54-year-old male, currently under the care of Dr. Mckeon, who presents for evaluation secondary to shortness of breath. Since August 27, patient reports that he has had difficulty with shortness of breath. Patient states that he started with a cold and sinus symptoms that went into my chest. Patient states that since that time he has slowly improved, but basis never persisted this long. Patient does report a history of exercise-induced asthma in the past. Patient has known triggers of dust and perfumes, but is never required any maintenance inhalers. Patient states he has never had a need to continue to use albuterol as this is typically only needed during episodes of bronchitis. Patient has had a COVID 19 test and antibody test that were both negative. Patient was started on Symbicort recently. Patient does report significant weight loss despite a prednisone burst. Patient does not believe that the Symbicort is making a significant difference in his symptoms. Patient continues to use albuterol, especially in the evening. As an additional part of the work- up, patient did have a CTA approximately 2 months after onset of symptoms. This did not show any significant mediastinal lymphadenopathy or pulmonary embolism, but did show a 4 mm groundglass opacity. Documentation reviewed prior to the office visit 12 pages of documentation were reviewed prior to the office visit. Patient reportedly has a history of asthma and allergic rhinitis treated with Claritin and pro-air. Recently, patient has been using nebulizer 3 times a day secondary to cough and shortness of breath. Patient reportedly has had progression in the symptomatology has recently been placed on a prednisone burst. Patient has tested negative for COVID-19 as an outpatient Imaging personally reviewed with the patient CTA chest (10/21/2019): 4.1 mm faint nodule in the lateral aspect of the right upper lobe, small hiatal hernia and 1.5 cm cyst in the dome of the right lobe of the liver. No significant mediastinal lymphadenopathy or bronchiectasis appreciated. Intake Vital Signs 11/18/19 Weight: 76.204 kg 11/18/19 BP 139/95 H 11/18/19 Blood Pressure Location Lt brachial 11/18/19 Position Sitting 11/18/19 Respiration 18 11/18/19 Pulse 98 11/18/19 Pulse Source Monitor 11/18/19 Temp 36.6 C 11/18/19 Temperature Source Tympanic 11/18/19 Pulse Oximetry (%) 99 11/18/19 Oxygen Delivery Method room air Intake Visit Reasons: Shortness of breath Allergies codeine Adverse Reaction (Verified 11/18/19 06:34) Nausea Medications Multivitamin,Therapeutic [Thera] 1 ea PO DAILY 05/13/17 [History Confirmed 11/18/19] Albuterol Inhaler [Ventolin Hfa (SP)] 2 puff INHALATION Q4H PRN PRN 09/13/19 [History Confirmed 11/18/19] albuterol sulfate 2.5 mg/0.5 mL solution for nebulization 5 mg INHALATION Q6H 11/12/19 [History Confirmed 11/18/19] loratadine 10 mg capsule 10 mg PO DAILY 11/12/19 [History Confirmed 11/12/19] budesonide-formoterol HFA 160 mcg-4.5 mcg/actuation aerosol inhaler 2 puff INHALATION BID #10.2 g 11/18/19 [Rx Confirmed 11/18/19] cholecalciferol (vitamin D3) 25 mcg (1,000 unit) capsule 25 mcg PO DAILY 11/18/19 [History Confirmed 11/18/19] diphenhydramine HCl 25 mg tablet 25 mg PO QHS 11/18/19 [History Confirmed 11/18/19] famotidine 20 mg tablet 20 mg PO DAILY 11/18/19 [History Confirmed 11/18/19] [facility] Medical History (Updated 11/18/19 @ 06:59 by Ana Luisa Contreras) GERD (gastroesophageal reflux disease) (Acute) Migraine (Acute) Muscle tension headache (Acute) Mitral valve prolapse (Acute) Cardiac arrhythmia (Acute) Allergic rhinitis (Acute) Asthma (Acute) Plantar fasciitis (Acute) Fibromyalgia (Acute) Cough (Acute) SOB (shortness of breath) (Acute) Surgical History (Updated 11/18/19 @ 06:59 by Ana Luisa Contreras) No pertinent past surgical history (Acute) Family History (Updated 11/18/19 @ 07:01 by Ana Luisa Contreras) Father Diabetes Atrial fibrillation Grandmother Diabetes Other Asthma Heart disease Hypertension Social History (Updated 11/18/19 @ 07:[address] Ian Hanson MD) Smoking Status: Never smoker Review of Systems Const CONSTITUTIONAL: No anorexia, No body ache, No chills, No daytime sleepiness, No fever(s), No night sweats, No stops breathing during sleep, No weight loss, No weight gain, No sleeping in chair, No orthopnea, No fatigue, No headache(s), No frequent colds, No seasonal allergies, No other EETM Ear Nose Throat Mouth: No hoarseness, No Dry mouth in morning, No change in vision, No itchy eyes, No eye pain, No Swallowing Difficulty, No ear pain, No nose bleed, No headache(s), No mouth pain, No nasal congestion, No nasal discharge, No sinus pain, No sinus pressure, No sore throat, No other Cardio Cadriovascular: No chest pain, No chest pain at rest, No chest pain with activity, No irregular heart rhythm, No shortness of breath when lying down, No palpitations, No other Resp Respiratory: Yes as per HPI, No shortness of breath at rest, No pain with cough, No chest congestion, No cough, No chest tightness, No pain on inspiration, No Inhalers, No Increase use of Rescue Inhalers, No snoring, No apnea, No other Gastro Gastrointestional: Negative bloody stools, change in appetite, difficulty swallowing, reflux, hematemesis, melena stool, loose stool, constipation or other Genitourinary: Negative blood in urine, nocturia, pain with urination or other Musc Musculoskeletal: Negative body pain, back pain, neck pain or other Skin/Breast Skin/Breast: No dry skin, No itching, No unusual bruising, No breast lump, No other Neuro Neurological: Negative restless legs, confusion, weakness or other Psych Psychocological: Negative abnormal sleep pattern, anxiety, thoughts of hurting self/others, hopelessness or other Lymph Lymphatic: No easy bleeding, No easy bruising, No other Exam Const Constitutional: Positive conversant, cooperative, in no acute respiratory distress, healthy appearing, well developed, well nourished and good hygiene Head Head: Yes normocephalic, Yes atraumatic, No cyanosis of lips/distal nose Eyes Eye: Positive clear conjunctiva; negative nystagmus, scleral abnormality or cataract present Ears Ear: Positive hearing normal and external ears normal; negative hard of hearing Nose Nose: Yes external nose normal, No nasal polyp, Yes septum normal Mouth Mouth: Positive oral mucosae normal, no lesions and good dentition; negative oral thrush present or post nasal drip Mallampati Score: II: Mallampati Score Neck Neck: Positive normal visual inspection, full ROM and trachea midline; negative lymphadenopathy or JVD Chest Wall Chest: Positive normal inspection of the chest and symmetric chest movement; negative crepitus or tenderness Resp lung sounds: Positive clear to auscultation, good air exchange and normal expiratory time; negative wheezes, wheeze present on forced exhalation, rhonchi, rales, dullness to percussion or use of accessory muscles Cardio Cardiac: Positive regular rate, regular rhythm, S1 normal and S2 normal; negative murmur, rub or gallop GI GI: Positive normal to inspection and normal bowel sounds; negative distended, ascites or epigastric tenderness Genitourinary: Positive deferred Musc Musculoskeletal: Positive steady gait; negative using an assistive device for ambulation, kyphosis or scoliosis Skin Pulmonary Skin Exam: Positive intact; negative lesion, rash, ulcers or erythema Pulses Pulse: Yes radial pulses present Extremities Extremities: Yes capillary refill normal, No clubbing, No cyanosis, No edema Neuro Neurologic: Yes no focal neuro deficits, Yes conversant, Yes cooperative, Yes normal cognition, Yes normal coordination, Yes normal concentration, Yes understands questions Lymph Lymphatic: No lymphadenopathy Psych Appearance: Positive grossly normal Mental Status: Positive mental status grossly normal Mood: Positive congruent mood Affect: Positive normal affect Office Procedures NIOX NIOX Result NIOX: 12 Coding Level of Care Code Off vis,new,level 4 Diagnoses Shortness of breath R06.02 11/18/19 0727 <Electronically signed by Ian Hanson MD> Date Ian Hanson MD Cosigner Signature: Date (if applicable) CC: DO Karley Orantes Start: 10-21-2019 End: 10-21-2019 CTA Chest W/WO Contrast Comments: See Note; NOTES: [facility] Imaging Services [address] [place] [address] CTA Chest W/WO Contrast MR#: [id number] Acct: [id number] Name: SYED ALEGRE Rep #: [id number] : 1965 M 54 From: Enrique mcduffie MD PCP: Karley Mckeon DO Status: REG CLI Study: CTA Chest W/WO Contrast Date of Exam: 10/21/19 Exam# [id number] Ordering Dr: Karley Mckeon DO STUDY: CTA CHEST REASON FOR EXAM: Male, 54 years old. SOB x 2 months, ? PE RADIATION DOSAGE (If Supplied By Facility): CTDIvol = ( 7.34 ) mGy, DLP = ( 343.84 ) mGycm TECHNIQUE: The examination was performed with the intravenous administration of 100ML ISOVUE 370. Post-processing of the angiographic images was performed, with multiplanar reformation and 3D reconstruction. Individualized dose optimization techniques were used for this CT. COMPARISON: None. FINDINGS: Small bilateral benign-appearing axillary lymph nodes. Normal enhancement of the main pulmonary artery and right and left pulmonary arteries. Normal enhancement of the bilateral peripheral pulmonary arteries. There is no demonstrated pulmonary embolism. Normal thoracic aorta and visualized great vessels. There is no demonstrated aortic dissection. Normal heart and pericardium. Normal mediastinum. Normal hilar regions. Normal visualized trachea and bronchi. The lungs are well expanded. 4.1 mm faint nodule in the lateral aspect of the right upper lobe as seen on axial image #177. Normal pleura. Normal chest wall structures. Normal osseous structures. There is a 1.5 cm cyst in the dome of the right lobe of the liver. Small hiatal hernia. CT/CTA Chest W/WO Contrast IMPRESSION: No evidence of pulmonary emboli. 1.5 cm cyst in the dome of the right lobe of the liver. 4.1 mm faint nodule in the lateral aspect of the right upper lobe. Electronically Signed: Enrique Narvaez, at 16:01 EDT , Service support , CC: Karley Mckeon DO Casting Wheel Operator: Signed Karley Mckeon Work Phone: Start: 09-23-2019 End: 09-23-2019 Chest PA and Lateral Comments: See Note; NOTES: [facility] Imaging Services [address] [place] [address] Chest PA and Lateral MR#: [id number] Acct: [id number] Name: SYED ALEGRE Rep #: [id number] : 1965 M 54 From: Enrique Narvaez MD PCP: Karley Mckeon DO Status: REG CLI Study: Chest PA and Lateral Date of Exam: 09/23/19 Exam# [id number] Ordering Dr: Karley Mckeon DO STUDY: X-RAY CHEST REASON FOR EXAM: Male, 54 years old. Dry cough, sob, x 1 week, hx asthma TECHNIQUE: PA and lateral views of the chest. COMPARISON: Comparison is made with prior examination dated September 13, 2019. FINDINGS: The lungs are clear and expanded. There is no demonstrated pleural abnormality. Normal size heart. Normal mediastinum and adonis. Normal visualized pulmonary arteries. Normal visualized aortic arch and descending thoracic aorta. There are mild degenerative changes of the visualized thoracic spine. Normal visualized ribs, clavicles, and shoulders. There is no demonstrated abnormality of the visualized soft tissue structures of the upper abdomen. RAD/Chest PA and Lateral IMPRESSION: Normal x-ray examination of the chest. Electronically Signed: Enrique Brice, at 11:22 EDT , Service support , CC: Karley Mckeon DO Casting Wheel Operator: Signed Karley Mckeon Work Phone: Start: 09-14-2019 End: 09-14-2019 12 lead ECG Comments: See Note; NOTES: [facility] Cardiovascular Services [address] [place] [address] 12 Lead EKG 09/13/19 1344 MR#: [id number] Acct: [id number] Name: SYED ALEGRE Rep #: [id number] : 1965 54 From: Linwood Arana MD Attending Dr: Status: DEP ER Ordering Dr: Denver Zafar MD Date: 09/13/19 Location: ED Sex: M C Admitted: Test Reason : Blood Pressure : / mmHG Vent. Rate : 120 BPM Atrial Rate : 120 BPM P-R Int : 130 ms QRS Dur : 082 ms QT Int : 328 ms P-R-T Axes : 064 057 -63 degrees QTc Int : [address] AND T wave abnormality, consider inferior ischemia Abnormal ECG Confirmed by LINWOOD ARANA MD ([id number]), editorial manager RITA INMAN ([id number]) on 09/14/2019 1:37:40 PM Referred By: JOHANN Confirmed By:LINWOOD ARANA MD 09/14/19 1337 Date Linwood Arana MD CC: Denver Zafar MD; Karley Mckeon DO Signed Karley Mckeon Start: 09-13-2019 End: 09-13-2019 Emergency Department Summary Comments: See Note; NOTES: [facility] Medical Records Department [address] [place] [address] Emergency Department Summary 09/13/19 MR#: [id number] Acct: [id number] Name: SYED ALEGRE Rep #: [id number] : 1965 54 From: Denver Zafar MD PCP: Karley Mckeon DO Status: REG ER History of Present Illness Chief Complaint: Shortness of Breath Narrative: This patient is a 54-year-old male who presents with shortness of breath. He initially became ill about 2 weeks ago with a URI-like illness. He had sinus congestion rhinorrhea and sore throat. No fevers. He does have a dry cough. His upper respiratory symptoms have improved but now he complains of burning and tightness in his chest which feels similar to exacerbations of asthma. His doctor called in Augmentin X days ago which she has been taking. He has not been improving and has been using his albuterol inhaler frequently without significant relief. His doctor called in a prednisone taper which she started last night and took 20 mg of prednisone last night and again today. He continues to feel short of breath. No fevers. No vomiting or diarrhea. He denies any pain. Past Medical History - Allergies and Home Meds Allergies/Adverse Reactions: Allergies codeine Adverse Reaction (Verified 09/13/19 13:08) Nausea Primary Care Physician: Karley Mckeon DO [Primary Care Provider] - Past Medical History: - - Asthma Smoking Status: Never smoker Review of Systems All systems negative except as indicated General: Denies: Fever Eyes: Denies: Visual changes - bilaterally ENT: Reports: Rhinorrhea, Sore throat. Denies: Bilateral ear pain Cardiovascular: Denies: Chest pain Respiratory: Reports: Dyspnea, Cough. Denies: Sputum Gastrointestinal: Denies: Abdominal pain, Nausea, Vomiting Musculoskeletal: Denies: Myalgias, Arthralgias Skin: Denies: Rash Neurological: Denies: Headache Physical Exam Vital Signs/Narrative: Vital Signs 09/13/19 13:06 98.8 F 137 H 20 H 142/94 H 98 Inital Vital Signs reviewed: Yes General: Well nourished, Well developed Head: Normocephalic Eyes: EOMI ENT: Moist mucous membranes Neck: Supple Cardiovascular: - - Is regular tachycardia, no murmur, gallop, rub Respiratory: - - No distress able speak in full sentences he does not have rales rhonchi or wheezing and does have good air exchange Abdomen: Soft, Nontender Skin: Normal color Neurological: Alert Psychological: Normal affect Diagnostic/Tx/Re-eval Impressions Chest X-Ray 09/13/19 13:21 IMPRESSION: Normal x-ray examination of the chest and unchanged since 05/13/2017. Electronically Signed: Bernabe Banks MD at 13:58 EDT , Service support , 09/13/19 13:21 Chest 1 View (Portable) [RAD] Stat 09/13/19 13:35 Mucosa - Nasopharyngeal Rapid RSV (DFA) - Final 09/13/19 13:35 Mucosa - Nasopharyngeal Influenza Types A,B Direct FA (BENNY) - Final Laboratory Results WBC 10.0 RBC 5.39 Hgb 16.4 Hct 48.9 MCV 90.7 MCH 30.4 MCHC 33.5 RDW Std Deviation 40.8 RDW Coeff of Storm 12.3 Plt Count 215 MPV 11.0 Immature Gran % (Auto) 0.200 Neut % (Auto) 85.4 H Lymph % (Auto) 11.3 L [place] % (Auto) 2.9 Eos % (Auto) 0.0 Baso % (Auto) 0.2 Absolute Neuts (auto) 8.6 H Absolute Lymphs (auto) 1.13 Nucleated RBC % 0 Sodium 141 Potassium 3.7 Chloride 107 Carbon Dioxide 25.0 Anion Gap 9 BUN 7 Creatinine 1.05 Estim Creat Clear Calc 76.07 Est GFR (MDRD) Af Amer 95 Est GFR (MDRD) Non-Af 78 BUN/Creatinine Ratio 6.7 L Glucose 122 H Calcium 9.2 - Medical Decision Making EKG shows sinus tachycardia at a rate of 120. Patient has inferior T wave inversions. CBC BMP unremarkable. Rapid influenza and RSV negative. Chest x-ray shows no acute process. Patient symptoms do seem to be respiratory in nature but given EKG changes troponin is pending at the time of this dictation. On reevaluation patient is resting comfortably. His heart rate is improved although is still slightly tachycardic. He is being treated with IV fluids. This time his troponin is negative I do not see a benefit to hospitalization especially given in the setting of potential increased exposure during the Covid19 pandemic. He is agreeable with this plan. If troponin is negative plan is discharged home to follow-up as an outpatient. He is currently on antibiotics and steroids and he was advised to continue this. He understands to return for new or worsening symptoms and was instructed on specific signs and symptoms to monitor for. ED Disposition - Plan for ED Patient: Disposition: Home or Assisted Living Diagnosis: Bronchitis, Asthma exacerbation Instructions: Acute Bronchitis, ED REACTIVE AIRWAY DISEASE Adult Referrals: Karley Mckeon, [Primary Care Provider] - What to do if you have Problems For any increased pain, shortness of breath, bleeding, nausea or vomiting, chest pain, or any unexpected problems, contact your Primary Care Provider. Call [facility] ([phone]) or report to the closest Emergency Room. Call 911 if necessary. 09/13/19 6220 <Electronically signed by Denver Zafar MD> Date Dnever Zafar MD Cosigner Signature (If Indicated): Date CC: Karley Rodriguez Start: 09-13-2019 End: 09-13-2019 Chest 1 View (Portable) Comments: See Note; NOTES: [facility] Imaging Services [address] [place] [address] Chest 1 View (Portable) MR#: [id number] Acct: [id number] Name: Syed Alegre Rep #: [id number] : 1965 M 54 From: Bernabe Banks MD PCP: Karley Mckeon DO Status: PRE ER Study: Chest 1 View (Portable) Date of Exam: 09/13/19 Exam# [id number] Ordering Dr: Denver Zafar MD STUDY: X-RAY CHEST REASON FOR EXAM: Male, 54 years old. SOB, COUGH, ASTHMA TECHNIQUE: AP upright portable view. COMPARISON: 05/13/2017. FINDINGS: The lungs are clear and expanded. There is no demonstrated pleural abnormality. Normal size heart. Normal mediastinum and adonis. Normal visualized pulmonary arteries. Normal visualized aortic arch and descending thoracic aorta. Normal visualized thoracic spine. Normal visualized ribs, clavicles, and shoulders. There is no demonstrated abnormality of the visualized soft tissue structures of the upper abdomen. RAD/Chest 1 View (Portable) IMPRESSION: Normal x-ray examination of the chest and unchanged since 05/13/2017. Electronically Signed: Bernabe Banks MD at 13:58 EDT , Service support , CC: Denver Zafar MD; Karley Mckeon DO Casting Wheel Operator: Signed Karley Mckeon Start: 05-21-2017 End: 05-21-2017 12 lead ECG Comments: See Note; NOTES: [facility] Cardiovascular Services [address] [place] [address] 12 Lead EKG 05/13/17 0749 MR#: [id number] Acct: [id number] Name: SYED ALEGRE Rep #: [id number] : 1965 51 From: Yoshi Aguayo MD Attending Dr: Status: DEP ER Ordering Dr: Evaristo Vargas MD Date: 05/13/17 Location: ED Sex: M C Admitted: Test Reason : CP Blood Pressure : / mmHG Vent. Rate : 083 BPM Atrial Rate : 083 BPM P-R Int : 128 ms QRS Dur : 082 ms QT Int : 384 ms P-R-T Axes : 064 066 -04 degrees QTc Int : 451 ms Sinus rhythm with marked sinus arrhythmia ST AND T wave abnormality, consider inferior ischemia Abnormal ECG Confirmed by YOSHI AGUAYO ([id number]), editorial manager RITA INMAN ([id number]) on 05/16/2017 2:09:47 PM Referred By: KARELY Confirmed By:YOSHI AGUAYO 05/16/17 1409 Date Yoshi Aguayo MD CC: Karley Mckeon DO Signed Karley Mckeon Start: 05-13-2017 End: 05-13-2017 Stress Test Echo w/o Contrast Comments: See Note; NOTES: [facility] Cardiovascular Services [address] [place] [address] Stress Test Echo w/o Contrast MR#: [id number] Acct: [id number] Name: SYED ALEGRE Rep #: [id number] : 1965 51 From: Linwood Arana MD Primary Care: Karley Mckeon DO Status: DEP ER Ordering Dr: Evaristo Vargas MD Sex: M C Reason For Study: Chest pain Stress Results Protocol: Ian Protocol Maximum Predicted HR: 170 bpm Target HR: 145 bpm% Max imum Predicted HR: 114 % DurationHeart Rate Stage (mm:ss) (bpm) BPCom ment Baseline 87 126/82 0.2 ML definity Stage 1 3:00 13 7 148/88 Stage 2 3:00 16 9 152/82 Stage 3 2:00 19 3 162/820.2 ML definity Recovery 122 122/7 0 Stress Duration: 8:00 mm:ss Maximum Stress HR: 193 bpm Baseline Echocardiogram Findings Stress Echo Wall motion Data Resting WMIntermediate WMStress WM Resting Wall Motion Wall Motion Stress No regional wall motion No regional wall motion abnormalities noted. abnormalities noted. Ejection Fraction 60 %. Ejection Fraction 70 %. EKG Data Baseline ECG demonstrates normal sinus rhythm with a rate of 86 beats per minute. Normal intervals are noted. The resting blood pressure was 126/82. The patient exercised according to the regular Ian protocol for a total duration of 8min. The maximum heart rate attained was 196 beats per minute. This was 115% of maximum predicted heart rate. The patient exercised into stage 3 of the Ian protocol. During stress, there were no ST or T wave changes noted to suggest ischemia. At peak exercise, upsloping ST changes only were noted, which did not meet the criteria for ischemia. No arrhythmias noted. No clinical angina was noted. Interpretation Summary Normal resting LV systolic function. Nonstenotic valves. With stress, the LV size decreased and all segments augmented normally. The LVEF increased from 60% to 70%. Negative for ischemia at 115% of MPHR and at 10.1 METS. Test terminated due to leg fatigue Ordering Physician: Evaristo Vargas Referring Physician: Evaristo Vargas Performed By: Carmella Oliveira, DANA 05/13/17 1624 Date Linwood Arana MD CC: Karley Mckeon DO; Evaristo Vargas MD Date Dictated: 05/13/17 1107 Date Transcribed: 05/13/171623 Casting Wheel Operator: Signed Karley Mckeon Start: 05-13-2017 End: 05-13-2017 Emergency Department Summary Comments: See Note; NOTES: [facility] Medical Records Department [address] [place] [address] Emergency Department Summary 05/13/17 0915 MR#: [id number] Acct: [id number] Name: SYED ALEGRE Rep #: [id number] : 1965 51 From: Evaristo Vargas MD PCP: Karley Mckeon DO Status: REG ER - ER Visit Summary Date of Service: 05/13/17 Chief Complaint: Bilateral intermittent chest tightness and diarrhea History of Present Illness: The patient is a 51 M has no past medical history and no cardiac risk factors presents with bilateral chest tightness. Onset Saturday after using chainsaw. He has had intermittent episodes since then. He states the pain is intermittent lasting seconds to a couple of minutes. It is not necessarily exertional, or positional. It is not related to food. He reported intermittent shortness of breath denied nausea or vomiting. States he felt warm but was not diaphoretic. There was no radiation of the discomfort. He denies hematemesis, melena hematochezia. Denies history of hiatal hernia. Denies food intolerance. Denies history of biliary disease or cholelithiasis. There is no history of trauma. He denies fever, chills or night sweats. Eyes any ocular, visual auditory symptoms. He denies any dysuria, frequency, urgency or hematuria. He does get orthostatic symptoms. He denies myalgias or arthralgias. He does complain of mild generalized weakness. He has no other complaints. He denies recent antibiotic use. He has no history of inflammatory bowel disorder. He has had no ill contacts. The diarrhea started Saturday. He states he has had numerous loose watery stools. Physical Examination: Vital signs remarkable blood pressure 133/100. HEENT exam is remarkable dry mucosa. Heart is regular without murmur, gallop or rub. S1 and S2 are normal. Lungs are clear to auscultation with good movement of air bilaterally. Abdomen soft nontender with no hepatomegaly. There is no palpable, pulsatile or abdominal mass. There is no abdominal bruit. There is no dermatologic lesions noted. There is no CVA tenderness noted. There is no evidence of umbilical hernia. He is alert oriented with a nonfocal neurologic exam. Test Results: CBC is normal. BMP is remarkable slight elevation in chloride 108. Troponin is less than 0.02. EKG reveals sinus rhythm with respiratory variation and ST-T wave abnormality in 3 and aVF. Two-view chest x-ray reveals no acute process on my interpretation. Echo was obtained and interpreted by Dr. Arana as negative Emergency Department Course and Treatment: To evaluate patient's chest pain EKG, chest x-ray and blood work was obtained. To treat his diarrhea and dehydration he was given IV fluids. Cultures are not indicated since symptoms are less than 24 hours. Treatment Plan: Discharge to home with appropriate home-going instructions Disposition: Appropriate home-going instructions for diarrhea Impression: 1. Bilateral chest tightness unknown etiology 2. Abdominal pain with diarrhea 3. Mild dehydration This note was generated with [employer] POSation software. It may contain incorrect words, spelling, and punctuation that were not noted in review of the chart prior to signing ED Disposition - Plan for ED Patient: Disposition: Home or Assisted Living Chief Complaint: Chest Pain Instructions: ED Chest Pain NonCardiac, ED Diarrhea Viral Prescriptions: Dicyclomine HCl [Bentyl] 20 mg PO ACHS #10 capsule Referrals: Karley Mckeon DO [Primary Care Provider] - 1-2 Days if not improving Additional Instructions: Take Imodium as instructed on vial. What to do if you have Problems For any increased pain, shortness of breath, bleeding, nausea or vomiting, chest pain, or any unexpected problems, contact your Primary Care Provider. Call [facility] ([phone]) or report to the closest Emergency Room. Call 911 if necessary. 05/13/17 1220 <Electronically signed by Evaristo Vargas MD> Date Evaristo Vargas MD Cosigner Signature (If Indicated): Date CC: Karley Rodriguez Start: 05-13-2017 End: 05-13-2017 Chest PA and Lateral Comments: See Note; NOTES: [facility] Imaging Services [address] [place] [address] Chest PA and Lateral MR#: [id number] Acct: [id number] Name: SYED ALEGRE Rep #: [id number] : 1965 M 51 From: Celestino Perez MD PCP: Karley Mckeon DO Status: [facility] ER Study: Chest PA and Lateral Date of Exam: 05/13/17 Exam# [id number] Ordering Dr: Evaristo Vargas MD STUDY: X-RAY CHEST REASON FOR EXAM: Male, 51 years old. Chest pain and weakness for 3 days TECHNIQUE: PA and lateral views of the chest. COMPARISON: None. FINDINGS: EKG leads project over the chest. The lungs are clear and expanded. There is no demonstrated pleural abnormality. Normal size heart. Normal mediastinum and adonis. Normal visualized pulmonary arteries. There is atherosclerotic tortuosity of the aortic arch and descending thoracic aorta. No acute bony process. There is no demonstrated abnormality of the visualized soft tissue structures of the upper abdomen. RAD/Chest PA and Lateral IMPRESSION: Nonacute x-ray examination of the chest. Electronically Signed: Celestino Perez MD at 8:54 EST , Service support , CC: Karley Mckeon DO; Evaristo Vargas MD Casting Wheel Operator: Signed Karley Mckeon Start: 03-23-2015 End: 03-23-2015 Emergency Department Summary Comments: See Note; NOTES: [facility] Medical Records Department [address] [place] [id number] Emergency Department Summary MR#: [id number] Acct: [id number] Name: SYED ALEGRE Rep #: [id number] : 1965 49 From: Amrik Powell MD PCP: Karley Mckeon DO Status: [facility] ER DATE OF SERVICE: 03/20/2015 METHOD OF ARRIVAL: By private car. CHIEF COMPLAINT: Headache. PRIMARY CARE: Dr. Mckeon CHAVES HISTORY: A 49-year-old male with history of headaches, comes in with a headache started yesterday. It is continuous in the back of his head to the front. Describes it as similar to headaches he has been having over the last 6 months. He states currently is 8-9/10. He has felt nauseous with no vomiting. No upper respiratory symptoms or fever. He states he has had blurry vision, which she has been having with these headaches. He also complains of photophobia and a light noise makes his headache worse. Denies any trauma. Denies any thunderclap history. REVIEW OF SYSTEMS: Otherwise unremarkable than noted above. FAMILY HISTORY: There is a family history of headaches in his mother with migraines. PHYSICAL EXAMINATION: VITAL SIGNS: Stable. Afebrile. HEENT: Unremarkable. There is no papilledema. Pupils are equal, round, reactive. No temporal artery tenderness. No rashes. No zoster. NECK: Supple. No meningismus. HEART: Regular. LUNGS: Clear. ABDOMEN: Soft, nontender. NEUROLOGIC: The patient is awake, alert and oriented with no focal findings. NIH is 0. TESTS: CT of the brain was obtained due to him never having imaging before. This was read by radiology and my review was normal. EMERGENCY DEPARTMENT COURSE: The patient was given IV Toradol, Compazine and Benadryl. On repeat evaluation, the patient states that his symptoms have resolved, his headache resolved. With his headache resolved his blurry vision has resolved. At this time, plan will be to home. We encouraged to follow up with Dr. Mckeon. CLINICAL IMPRESSION: Recurrent headache. DISPOSITION: Home. MD Edwin Toure C: Karley Mckeon DO T: NTS JOB: [id number] 03/23/15 0107 <Electronically signed by Amrik Powell MD> Date Amrik Powell MD Cosigner Signature (If Indicated): Date CC: Karley Mckeon DO Date Dictated: 03/20/152106 Date Transcribed: 03/20/152106 Casting Wheel Operator: Signed Karley Mckeon Start: 03-20-2015 End: 03-20-2015 Discharge Instruction Comments: See Note; NOTES: [facility] Medical Records Department [address] [place] [address] Discharge Instruction 03/20/152102 MR#: [id number] Acct: [id number] Name: SYED ALEGRE Rep #: [id number] : 1965 49 From: Amrik Powell MD PCP: Karley Mckeon DO Status: REG ER ED Disposition - Plan for ED Patient: Disposition: Home or Assisted Living Chief Complaint: Headache Instructions: ED Headache, Unspecified Prescriptions: Ondansetron [Zofran Odt] 4 mg PO Q8H PRN PRN #10 tablet PRN Reason: Nausea Naproxen [Naprosyn] 500 mg PO BID PRN #20 tablet Referrals: Karley Mckeon DO [Primary Care Provider] - 2 Days Additional Instructions: follow up with Dr Mckeon. return with problems What to do if you have Problems For any increased pain, shortness of breath, bleeding, nausea or vomiting, chest pain, or any unexpected problems, contact your doctor. Call [facility] ([phone]) or report to the closest Emergency Room. Call 911 if necessary. 03/20/152103 <Electronically signed by Amrik Powell MD> Date Amrik Powell MD Cosigner Signature (If Indicated): Date CC: Karley Rodriguez Start: 03-20-2015 End: 03-20-2015 Brain/Head without Contrast Comments: See Note; NOTES: [facility] Imaging Services [address] [place] [address] CAT Scan Report MR#: [id number] Acct: [id number] Name: SYED ALEGRE Rep #: [id number] : 1965 M 49 From: Isha Hardwick DO PCP: Karley Mckeon DO Status: REG ER Study: Brain/Head without Contrast Date of Exam: 03/20/15 Exam# [id number] Ordering Dr: Amrik Powell MD STUDY: CT BRAIN WITHOUT CONTRAST REASON FOR EXAM: Male, 49 years old. Headache for 2 days, nausea, migraine headaches RADIATION DOSAGE (If Supplied By Facility): CTDIvol = ( 58.31 ) mGy, DLP = ( 976.76 ) mGycm TECHNIQUE: Transaxial CT imaging of the brain was performed without administration of intravenous contrast material. COMPARISON: None. FINDINGS: Normal soft tissue structures. Normal calvarium. Normal size ventricles and extra-axial spaces for the patient's age. Normal white matter tracts of the cerebral hemispheres. Normal basal ganglia and thalami. Normal brainstem. Normal cerebellum. There is no intracranial hemorrhage. There are no findings of an acute ischemic infarction. Normal visualized paranasal sinuses. IMPRESSION: Normal unenhanced CT scan of the brain. Electronically Signed: Isha Hardwick DO at 20:27 EDT Tel , Service support [phone], CC: Karley Mckeon DO; Amrik Powell MD Casting Wheel Operator: Signed Karley Mckeon Plan of Treatment Date Care Activity Detail Author Start: 09-04-2022 Procedure Education Eprescribed prescriptions (G8553) [facility]; [facility] Work Phone: Start: 09-04-2022 Provider Instructions for Treatment Follow up if no improvement or if symptoms worsen [facility] Work Phone: Start: 08-28-2022 Procedure Education Eprescribed prescriptions (G8553) [facility] Work Phone: Start: 08-28-2022 Provider Instructions for Treatment Follow up if no improvement or if symptoms worsen [facility] Work Phone: Start: 04-18-2022 Provider Instructions for Treatment Follow up if no improvement or if symptoms worsen [facility] Work Phone: Start: 04-13-2022 Procedure Education Eprescribed prescriptions (G8553) [facility] Work Phone: Start: 02-01-2022 Patient discharge [facility] Work Phone: Start: 07-24-2021 Procedure Education Eprescribed prescriptions (G8553) [facility] Work Phone: Start: 07-24-2021 Provider Instructions for Treatment [facility] Work Phone: Start: 05-15-2021 Procedure Education Eprescribed prescriptions (G8553) [facility] Work Phone: Start: 05-15-2021 Provider Instructions for Treatment [facility] Work Phone: Start: 04-26-2020 Procedure Education Eprescribed prescriptions (G8553) [facility] Work Phone: Start: 04-26-2020 Provider Instructions for Treatment [facility] Work Phone: Start: 10-22-2019 Provider Instructions for Treatment Reviewed Diagnostic Tests [facility] Work Phone: Start: 10-21-2019 Procedure Education Eprescribed prescriptions (G8553) [facility] Work Phone: Start: 10-21-2019 Provider Instructions for Treatment Reviewed Diagnostic Tests [facility] Work Phone: Start: 10-05-2019 Procedure Education Eprescribed prescriptions (G8553) [facility] Work Phone: Start: 10-05-2019 Provider Instructions for Treatment [facility] Work Phone: Start: 10-02-2019 Procedure Education Eprescribed prescriptions (G8553) [facility] Work Phone: Start: 10-02-2019 Provider Instructions for Treatment Follow up Mon or Tues with virtual apt with [facility] or [facility] Work Phone: Start: 09-25-2019 Procedure Education Eprescribed prescriptions (G8553) [facility] Work Phone: Start: 09-23-2019 Procedure Education Eprescribed prescriptions (G8553) [facility] Work Phone: Start: 09-23-2019 Provider Instructions for Treatment Reviewed Lab [facility] Work Phone: Start: 05-27-2015 Procedure Education Eprescribed prescriptions (G8553) [facility] Work Phone: Start: 05-02-2015 Patient Education Migraine Headache: Brief Version *: migraines [facility] Work Phone: Start: 03-28-2015 Procedure Education Eprescribed prescriptions (G8553) [facility] Work Phone: Start: 03-28-2015 Provider Instructions for Treatment [facility] Work Phone: Start: 10-09-2013 Provider Instructions for Treatment [facility] Work Phone: Start: 07-15-2012 Provider Instructions for Treatment Follow up if no improvement or if symptoms worsen [facility] Work Phone: Start: 2012 Provider Instructions for Treatment Follow up in 4 week [facility] Work Phone: Start: 2012 Extractable nuclear antigen antibody any method SJOGREN ANTIBOIDIES (ANTI-SS-A/ANTI-SS-B) (09544) [facility] Work Phone: Start: 2012 Rheumatoid factor quantitative RHEUMATOID FACTOR-QUANT (14423) [facility] Work Phone: Start: 2012 C-reactive protein C-REACTIVE PROTEIN (38857) [facility]; [facility] Work Phone: Start: 2012 CRP mass conc C-REACTIVE PROTEIN (34139) [facility] Work Phone: Start: 2012 Cyclic citrullinated peptide antibody CCP ANTIBODY (67047) [facility] Work Phone: Start: 05-27-2012 Provider Instructions for Treatment Follow up in 1 week with [facility] Work Phone: Start: 05-27-2012 Protein electrophoretic fractj&quantj serum Serum Protein Electrophoresis (SPEP) (20284) [facility] Work Phone: Start: 05-27-2012 Protein mass conc Serum Protein Electrophoresis (SPEP) (88348) [facility] Work Phone: Start: 07-28-2010 Provider Instructions for Treatment [facility] Work Phone: Start: 07-18-2006 Provider Instructions for Treatment URI Symptoms [facility] Work Phone: Patient referral [facility] Work Phone: [facility] Work Phone: [facility] Work Phone: [facility] Work Phone: Migraine : Migra ine Headache: Brief Version *: migraines [facility] Work Phone: [facility] Work Phone: [facility] Work Phone: [facility] Work Phone[facility] Work Phone[facility] Work Phone: [facility] Work Phone: [facility] Work Phone: [facility] Work Phone: [facility] Work Phone: Immunizations Immunization Date Immunization Notes Care Provider Fa janell 04-11-2022 pneumococcal polysaccharide vaccine, 23 valent Karley Mckeon DO Work Phone: [facility]; [facility] Work Phone: Comment on above: Site: Left Deltoid Here for a Nurse Vis it-pneumococcal vaccinepneumococcal [id number]/29/2023Jesse Abel MA 01-02-2021 COVID-Pfizer (10 MCG /0.2 ML) Karley Mckeon DO Work Phone: [facility]; [facility] Work Phone: 09-02-2020 COVID-Pfizer (30 MCG /0.3 ML) Karley Thompsonon DO Work Phone: [facility]; [facility] Work Phone: 08-12-2020 COVID-Pfizer (30 MCG /0.3 ML) Karley Mckeon DO Work Phone: [facility]; [facility] Work Phone: 03-04-2020 influenza, injectabl e, quadrivalent, contains preservative Karley Thompsonon [facility] Work Phone: Comment on above: Site: Left Deltoid InfluenzaFlulaval Qu adrivalent 0.5mL prefilled syringeLot lot: [id number]/30/21Site-L dltd, IMVIS and ABN signedgiven by:as, PROPERTY APPRAISER Payers Date Payer Category Payer Self-pay [id number] 2022 Unknown [id number] 2020 Private Health Insurance [id number] 1965 Unknown [id number] Private Health Insurance [id number] Unknown Unknown [id number] Social History Date Type Detail Facility Caffeine Use [facility] Work Phone: Comment on above: 2 QD Start: 08-28-2021 End: 01-29-2022 Tobacco smoking status NHIS Unknown if ever smoked [facility] Work Phone: Start: 1965 Sex Assigned At Male [facility] Work Phone: Goals Date Patient Goal Desired Activity /State Mental Status Date Assessment Result Facility 02-01-2022 Cognitive function Touch/Shaking [facility] Work Phone: 02-01-2022 Cognitive function Patient Orien tation Person;Place;Time [facility] Work Phone: Clinical Notes 06-20-2021 Note Date & Type Note Facility 06-20-2021 Instructions Name Patient Instructions Indication:Non-smoker Start: 1 Instruction Type:Provider Instructions for Treatment How to Access Health Information Online using Patient Portal and [employer] Apps Indication:Non-smoker Start: 1 Instruction Type:Patient Education How to access health information online Indication:Non-smoker Start: 0 Instruction Type:Patient Education How to access health information online - Detail Indication:Non-smoker Start: 0 Instruction Type:Patient Education Patient Instructions Indication:Non-smoker Start: 0 Instruction Type:Provider Instructions for Treatment How to access health information online Indication:Non-smoker Start:22-Oct-2019 Instruction Type:Patient Education How to access health information online - Detail Indication:Non-smoker Start:22-Oct-2019 Instruction Type:Patient Education Patient Instructions Indication:Non-smoker Start:22-Oct-2019 Instruction Type:Provider Instructions for Treatment How to access health information online Indication:BMI 25.0-25.9,adult Start:21-Oct-2019 Instruction Type:Patient Education How to access health information online - Detail Indication:BMI 25.0-25.9,adult Start:21-Oct-2019 Instruction Type:Patient Education Patient Instructions Indication:BMI 25.0-25.9,adult Start:21-Oct-2019 Instruction Type:Provider Instructions for Treatment How to access health information online Indication:Non-smoker Start: 0 Instruction Type:Patient Education How to access health information online - Detail Indication:Non-smoker Start: 0 Instruction Type:Patient Education Patient Instructions Indication:Non-smoker Start: 0 Instruction Type:Provider Instructions for Treatment How to access health information online Indication:Non-smoker Start: 0 Instruction Type:Patient Education How to access health information online - Detail Indication:Non-smoker Start: 0 Instruction Type:Patient Education Patient Instructions Indication:Non-smoker Start: 0 Instruction Type:Provider Instructions for Treatment How to access health information online Indication:BMI 25.0-25.9,adult Start: 0 Instruction Type:Patient Education How to access health information online - Detail Indication:BMI 25.0-25.9,adult Start: 0 Instruction Type:Patient Education Patient Instructions Indication:BMI 25.0-25.9,adult Start: 0 Instruction Type:Provider Instructions for Treatment How to access health information online Indication:Non-smoker Start:23-Sep-2019 Instruction Type:Patient Education How to access health information online - Detail Indication:Non-smoker Start:23-Sep-2019 Instruction Type:Patient Education Patient Instructions Indication:Non-smoker Start:23-Sep-2019 Instruction Type:Provider Instructions for Treatment How to access health information online Indication:Non-smoker Start: 0 Instruction Type:Patient Education How to access health information online - Detail Indication:Non-smoker Start: 0 Instruction Type:Patient Education Patient Instructions Indication:Non-smoker Start: 0 Instruction Type:Provider Instructions for Treatment How to access health information online Indication:Sinusitis, acute Start: 5 Instruction Type:Patient Education How to access health information online - Detail Indication:Sinusitis, acute Start: 5 Instruction Type:Patient Education Patient Instructions Indication:Sinusitis, acute Start: 5 Instruction Type:Provider Instructions for Treatment Patient Instructions Indication:Migraine Start: 5 Instruction Type:Provider Instructions for Treatment How to access health information online Indication:Migraine Start: 5 Instruction Type:Patient Education How to access health information online - Detail Indication:Migraine Start: 5 Instruction Type:Patient Education How to access health information online Indication:Migraine Start: 5 Instruction Type:Patient Education How to access health information online - Detail Indication:Migraine Start: 5 Instruction Type:Patient Education Patient Instructions Indication:Migraine Start: 5 Instruction Type:Provider Instructions for Treatment [facility] Work Phone: Evaluation note* Diagnosis Onset Date Resolution Status Asthma acute Lung nodule [facility] Work Phone: Evaluation note* Diagnosis Onset Date Resolution Status Asthma acute Lung nodule chronic Encounter for pre-operative cardiovascular clearance [facility] Work Phone: Evaluation note* Diagnosis Onset Date Resolution Status Encounter for pre-operative cardiovascular clearance acute Encounter for screening for malignant neoplasm of colo n [facility] Work Phone: Instructions* Name Dates Details Patient Instructions Indication:Non-smoker Start:24-Jul-2021 Instruction Type:Provider Instructions for Treatment How to Access Health Informa tion Online using Patient Portal and [employer] Apps Indication:Non-smoker Start:24-Jul-2021 Instruction Type:Patient Education Patient Instructions Indication:Non-smoker Start:15-May-2021 Instruction Type:Provider Instructions for Treatment How to Access Health Informa tion Online using Patient Portal and 3rd [employer] Apps Indication:Non-smoker Start:15-May-2021 Instruction Type:Patient Education How to access health informa tion online Indication:Non-smoker Start:26-Apr-2020 Instruction Type:Patient Education How to access health informa tion online - Detail Indication:Non-smoker Start:26-Apr-2020 Instruction Type:Patient Education Patient Instructions Indication:Non-smoker Start:26-Apr-2020 Instruction Type:Provider Instructions for Treatment How to access health informa tion online Indication:Non-smoker Start:22-Oct-2019 Instruction Type:Patient Education How to access health informa tion online - Detail Indication:Non-smoker Start:22-Oct-2019 Instruction Type:Patient Education Patient Instructions Indication:Non-smoker Start:22-Oct-2019 Instruction Type:Provider Instructions for Treatment How to access health informa tion online Indication:BMI 25.0-25.9,adult Start:21-Oct-2019 Instruction Type:Patient Education How to access health informa tion online - Detail Indication:BMI 25.0-25.9,adult Start:21-Oct-2019 Instruction Type:Patient Education Patient Instructions Indication:BMI 25.0-25.9,adult Start:21-Oct-2019 Instruction Type:Provider Instructions for Treatment How to access health informa tion online Indication:Non-smoker Start:05-Oct-2019 Instruction Type:Patient Education How to access health informa tion online - Detail Indication:Non-smoker Start:05-Oct-2019 Instruction Type:Patient Education Patient Instructions Indication:Non-smoker Start:05-Oct-2019 Instruction Type:Provider Instructions for Treatment How to access health informa tion online Indication:Non-smoker Start:02-Oct-2019 Instruction Type:Patient Education How to access health informa tion online - Detail Indication:Non-smoker Start:02-Oct-2019 Instruction Type:Patient Education Patient Instructions Indication:Non-smoker Start:02-Oct-2019 Instruction Type:Provider Instructions for Treatment How to access health informa tion online Indication:BMI 25.0-25.9,adult Start:25-Sep-2019 Instruction Type:Patient Education How to access health informa tion online - Detail Indication:BMI 25.0-25.9,adult Start:25-Sep-2019 Instruction Type:Patient Education Patient Instructions Indication:BMI 25.0-25.9,adult Start:25-Sep-2019 Instruction Type:Provider Instructions for Treatment How to access health informa tion online Indication:Non-smoker Start:23-Sep-2019 Instruction Type:Patient Education How to access health informa tion online - Detail Indication:Non-smoker Start:23-Sep-2019 Instruction Type:Patient Education Patient Instructions Indication:Non-smoker Start:23-Sep-2019 Instruction Type:Provider Instructions for Treatment How to access health informa tion online Indication:Non-smoker Start:07-Sep-2019 Instruction Type:Patient Education How to access health informa tion online - Detail Indication:Non-smoker Start:07-Sep-2019 Instruction Type:Patient Education Patient Instructions Indication:Non-smoker Start:07-Sep-2019 Instruction Type:Provider Instructions for Treatment How to access health informa tion online Indication:Sinusitis, acute Start:27-May-2015 Instruction Type:Patient Education How to access health informa tion online - Detail Indication:Sinusitis, acute Start:27-May-2015 Instruction Type:Patient Education Patient Instructions Indication:Sinusitis, acute Start:27-May-2015 Instruction Type:Provider Instructions for Treatment Patient Instructions Indication:Migraine Start:02-May-2015 Instruction Type:Provider Instructions for Treatment How to access health informa tion online Indication:Migraine Start:02-May-2015 Instruction Type:Patient Education How to access health informa tion online - Detail Indication:Migraine Start:02-May-2015 Instruction Type:Patient Education How to access health informa tion online Indication:Migraine Start:28-Mar-2015 Instruction Type:Patient Education How to access health informa tion online - Detail Indication:Migraine Start:28-Mar-2015 Instruction Type:Patient Education Patient Instructions Indication:Migraine Start:28-Mar-2015 Instruction Type:Provider Instructions for Treatment [facility]; [facility] Work Phone: Instructions* Name Dates Details Patient Instructions Indication:Non-smoker Start:24-Jul-2021 Instruction Type:Provider Instructions for Treatment How to Access Health Informa tion Online using Patient Portal and 3rd [employer] Apps Indication:Non-smoker Start:24-Jul-2021 Instruction Type:Patient Education Patient Instructions Indication:Non-smoker Start:15-May-2021 Instruction Type:Provider Instructions for Treatment How to Access Health Informa tion Online using Patient Portal and 3rd [employer] Apps Indication:Non-smoker Start:15-May-2021 Instruction Type:Patient Education How to access health informa tion online Indication:Non-smoker Start:26-Apr-2020 Instruction Type:Patient Education How to access health informa tion online - Detail Indication:Non-smoker Start:26-Apr-2020 Instruction Type:Patient Education Patient Instructions Indication:Non-smoker Start:26-Apr-2020 Instruction Type:Provider Instructions for Treatment How to access health informa tion online Indication:Non-smoker Start:22-Oct-2019 Instruction Type:Patient Education How to access health informa tion online - Detail Indication:Non-smoker Start:22-Oct-2019 Instruction Type:Patient Education Patient Instructions Indication:Non-smoker Start:22-Oct-2019 Instruction Type:Provider Instructions for Treatment How to access health informa tion online Indication:BMI 25.0-25.9,adult Start:21-Oct-2019 Instruction Type:Patient Education How to access health informa tion online - Detail Indication:BMI 25.0-25.9,adult Start:21-Oct-2019 Instruction Type:Patient Education Patient Instructions Indication:BMI 25.0-25.9,adult Start:21-Oct-2019 Instruction Type:Provider Instructions for Treatment How to access health informa tion online Indication:Non-smoker Start:05-Oct-2019 Instruction Type:Patient Education How to access health informa tion online - Detail Indication:Non-smoker Start:05-Oct-2019 Instruction Type:Patient Education Patient Instructions Indication:Non-smoker Start:05-Oct-2019 Instruction Type:Provider Instructions for Treatment How to access health informa tion online Indication:Non-smoker Start:02-Oct-2019 Instruction Type:Patient Education How to access health informa tion online - Detail Indication:Non-smoker Start:02-Oct-2019 Instruction Type:Patient Education Patient Instructions Indication:Non-smoker Start:02-Oct-2019 Instruction Type:Provider Instructions for Treatment How to access health informa tion online Indication:BMI 25.0-25.9,adult Start:25-Sep-2019 Instruction Type:Patient Education How to access health informa tion online - Detail Indication:BMI 25.0-25.9,adult Start:25-Sep-2019 Instruction Type:Patient Education Patient Instructions Indication:BMI 25.0-25.9,adult Start:25-Sep-2019 Instruction Type:Provider Instructions for Treatment How to access health informa tion online Indication:Non-smoker Start:23-Sep-2019 Instruction Type:Patient Education How to access health informa tion online - Detail Indication:Non-smoker Start:23-Sep-2019 Instruction Type:Patient Education Patient Instructions Indication:Non-smoker Start:23-Sep-2019 Instruction Type:Provider Instructions for Treatment How to access health informa tion online Indication:Non-smoker Start:07-Sep-2019 Instruction Type:Patient Education How to access health informa tion online - Detail Indication:Non-smoker Start:07-Sep-2019 Instruction Type:Patient Education Patient Instructions Indication:Non-smoker Start:07-Sep-2019 Instruction Type:Provider Instructions for Treatment How to access health informa tion online Indication:Sinusitis, acute Start:27-May-2015 Instruction Type:Patient Education How to access health informa tion online - Detail Indication:Sinusitis, acute Start:27-May-2015 Instruction Type:Patient Education Patient Instructions Indication:Sinusitis, acute Start:27-May-2015 Instruction Type:Provider Instructions for Treatment Patient Instructions Indication:Migraine Start:02-May-2015 Instruction Type:Provider Instructions for Treatment How to access health informa tion online Indication:Migraine Start:02-May-2015 Instruction Type:Patient Education How to access health informa tion online - Detail Indication:Migraine Start:02-May-2015 Instruction Type:Patient Education How to access health informa tion online Indication:Migraine Start:28-Mar-2015 Instruction Type:Patient Education How to access health informa tion online - Detail Indication:Migraine Start:28-Mar-2015 Instruction Type:Patient Education Patient Instructions Indication:Migraine Start:28-Mar-2015 Instruction Type:Provider Instructions for Treatment [facility]; [facility] Work Phone: Instructions* Name Dates Details Patient Instructions Indication:Non-smoker Start:24-Jul-2021 Instruction Type:Provider Instructions for Treatment How to Access Health Informa tion Online using Patient Portal and [employer]rd [employer] Apps Indication:Non-smoker Start:24-Jul-2021 Instruction Type:Patient Education Patient Instructions Indication:Non-smoker Start:15-May-2021 Instruction Type:Provider Instructions for Treatment How to Access Health Informa tion Online using Patient Portal and [employer]rd [employer] Apps Indication:Non-smoker Start:15-May-2021 Instruction Type:Patient Education How to access health informa tion online Indication:Non-smoker Start:26-Apr-2020 Instruction Type:Patient Education How to access health informa tion online - Detail Indication:Non-smoker Start:26-Apr-2020 Instruction Type:Patient Education Patient Instructions Indication:Non-smoker Start:26-Apr-2020 Instruction Type:Provider Instructions for Treatment How to access health informa tion online Indication:Non-smoker Start:22-Oct-2019 Instruction Type:Patient Education How to access health informa tion online - Detail Indication:Non-smoker Start:22-Oct-2019 Instruction Type:Patient Education Patient Instructions Indication:Non-smoker Start:22-Oct-2019 Instruction Type:Provider Instructions for Treatment How to access health informa tion online Indication:BMI 25.0-25.9,adult Start:21-Oct-2019 Instruction Type:Patient Education How to access health informa tion online - Detail Indication:BMI 25.0-25.9,adult Start:21-Oct-2019 Instruction Type:Patient Education Patient Instructions Indication:BMI 25.0-25.9,adult Start:21-Oct-2019 Instruction Type:Provider Instructions for Treatment How to access health informa tion online Indication:Non-smoker Start:05-Oct-2019 Instruction Type:Patient Education How to access health informa tion online - Detail Indication:Non-smoker Start:05-Oct-2019 Instruction Type:Patient Education Patient Instructions Indication:Non-smoker Start:05-Oct-2019 Instruction Type:Provider Instructions for Treatment How to access health informa tion online Indication:Non-smoker Start:02-Oct-2019 Instruction Type:Patient Education How to access health informa tion online - Detail Indication:Non-smoker Start:02-Oct-2019 Instruction Type:Patient Education Patient Instructions Indication:Non-smoker Start:02-Oct-2019 Instruction Type:Provider Instructions for Treatment How to access health informa tion online Indication:BMI 25.0-25.9,adult Start:25-Sep-2019 Instruction Type:Patient Education How to access health informa tion online - Detail Indication:BMI 25.0-25.9,adult Start:25-Sep-2019 Instruction Type:Patient Education Patient Instructions Indication:BMI 25.0-25.9,adult Start:25-Sep-2019 Instruction Type:Provider Instructions for Treatment How to access health informa tion online Indication:Non-smoker Start:23-Sep-2019 Instruction Type:Patient Education How to access health informa tion online - Detail Indication:Non-smoker Start:23-Sep-2019 Instruction Type:Patient Education Patient Instructions Indication:Non-smoker Start:23-Sep-2019 Instruction Type:Provider Instructions for Treatment How to access health informa tion online Indication:Non-smoker Start:07-Sep-2019 Instruction Type:Patient Education How to access health informa tion online - Detail Indication:Non-smoker Start:07-Sep-2019 Instruction Type:Patient Education Patient Instructions Indication:Non-smoker Start:07-Sep-2019 Instruction Type:Provider Instructions for Treatment How to access health informa tion online Indication:Sinusitis, acute Start:27-May-2015 Instruction Type:Patient Education How to access health informa tion online - Detail Indication:Sinusitis, acute Start:27-May-2015 Instruction Type:Patient Education Patient Instructions Indication:Sinusitis, acute Start:27-May-2015 Instruction Type:Provider Instructions for Treatment Patient Instructions Indication:Migraine Start:02-May-2015 Instruction Type:Provider Instructions for Treatment How to access health informa tion online Indication:Migraine Start:02-May-2015 Instruction Type:Patient Education How to access health informa tion online - Detail Indication:Migraine Start:02-May-2015 Instruction Type:Patient Education How to access health informa tion online Indication:Migraine Start:28-Mar-2015 Instruction Type:Patient Education How to access health informa tion online - Detail Indication:Migraine Start:28-Mar-2015 Instruction Type:Patient Education Patient Instructions Indication:Migraine Start:28-Mar-2015 Instruction Type:Provider Instructions for Treatment [facility]; [facility] Work Phone: Instructions* Name Dates Details Patient Instructions Indication:Non-smoker Start:24-Jul-2021 Instruction Type:Provider Instructions for Treatment How to Access Health Informa tion Online using Patient Portal and [employer]rd [employer] Apps Indication:Non-smoker Start:24-Jul-2021 Instruction Type:Patient Education Patient Instructions Indication:Non-smoker Start:15-May-2021 Instruction Type:Provider Instructions for Treatment How to Access Health Informa tion Online using Patient Portal and [employer]rd [employer] Apps Indication:Non-smoker Start:15-May-2021 Instruction Type:Patient Education How to access health informa tion online Indication:Non-smoker Start:26-Apr-2020 Instruction Type:Patient Education How to access health informa tion online - Detail Indication:Non-smoker Start:26-Apr-2020 Instruction Type:Patient Education Patient Instructions Indication:Non-smoker Start:26-Apr-2020 Instruction Type:Provider Instructions for Treatment How to access health informa tion online Indication:Non-smoker Start:22-Oct-2019 Instruction Type:Patient Education How to access health informa tion online - Detail Indication:Non-smoker Start:22-Oct-2019 Instruction Type:Patient Education Patient Instructions Indication:Non-smoker Start:22-Oct-2019 Instruction Type:Provider Instructions for Treatment How to access health informa tion online Indication:BMI 25.0-25.9,adult Start:21-Oct-2019 Instruction Type:Patient Education How to access health informa tion online - Detail Indication:BMI 25.0-25.9,adult Start:21-Oct-2019 Instruction Type:Patient Education Patient Instructions Indication:BMI 25.0-25.9,adult Start:21-Oct-2019 Instruction Type:Provider Instructions for Treatment How to access health informa tion online Indication:Non-smoker Start:05-Oct-2019 Instruction Type:Patient Education How to access health informa tion online - Detail Indication:Non-smoker Start:05-Oct-2019 Instruction Type:Patient Education Patient Instructions Indication:Non-smoker Start:05-Oct-2019 Instruction Type:Provider Instructions for Treatment How to access health informa tion online Indication:Non-smoker Start:02-Oct-2019 Instruction Type:Patient Education How to access health informa tion online - Detail Indication:Non-smoker Start:02-Oct-2019 Instruction Type:Patient Education Patient Instructions Indication:Non-smoker Start:02-Oct-2019 Instruction Type:Provider Instructions for Treatment How to access health informa tion online Indication:BMI 25.0-25.9,adult Start:25-Sep-2019 Instruction Type:Patient Education How to access health informa tion online - Detail Indication:BMI 25.0-25.9,adult Start:25-Sep-2019 Instruction Type:Patient Education Patient Instructions Indication:BMI 25.0-25.9,adult Start:25-Sep-2019 Instruction Type:Provider Instructions for Treatment How to access health informa tion online Indication:Non-smoker Start:23-Sep-2019 Instruction Type:Patient Education How to access health informa tion online - Detail Indication:Non-smoker Start:23-Sep-2019 Instruction Type:Patient Education Patient Instructions Indication:Non-smoker Start:23-Sep-2019 Instruction Type:Provider Instructions for Treatment How to access health informa tion online Indication:Non-smoker Start:07-Sep-2019 Instruction Type:Patient Education How to access health informa tion online - Detail Indication:Non-smoker Start:07-Sep-2019 Instruction Type:Patient Education Patient Instructions Indication:Non-smoker Start:07-Sep-2019 Instruction Type:Provider Instructions for Treatment How to access health informa tion online Indication:Sinusitis, acute Start:27-May-2015 Instruction Type:Patient Education How to access health informa tion online - Detail Indication:Sinusitis, acute Start:27-May-2015 Instruction Type:Patient Education Patient Instructions Indication:Sinusitis, acute Start:27-May-2015 Instruction Type:Provider Instructions for Treatment Patient Instructions Indication:Migraine Start:02-May-2015 Instruction Type:Provider Instructions for Treatment How to access health informa tion online Indication:Migraine Start:02-May-2015 Instruction Type:Patient Education How to access health informa tion online - Detail Indication:Migraine Start:02-May-2015 Instruction Type:Patient Education How to access health informa tion online Indication:Migraine Start:28-Mar-2015 Instruction Type:Patient Education How to access health informa tion online - Detail Indication:Migraine Start:28-Mar-2015 Instruction Type:Patient Education Patient Instructions Indication:Migraine Start:28-Mar-2015 Instruction Type:Provider Instructions for Treatment [facility]; [facility] Work Phone: Instructions* Name Dates Details Patient Instructions Indication:Non-smoker Start:24-Jul-2021 Instruction Type:Provider Instructions for Treatment How to Access Health Informa tion Online using Patient Portal and [employer]rd [employer] Apps Indication:Non-smoker Start:24-Jul-2021 Instruction Type:Patient Education Patient Instructions Indication:Non-smoker Start:15-May-2021 Instruction Type:Provider Instructions for Treatment How to Access Health Informa tion Online using Patient Portal and [employer] Apps Indication:Non-smoker Start:15-May-2021 Instruction Type:Patient Education How to access health informa tion online Indication:Non-smoker Start:26-Apr-2020 Instruction Type:Patient Education How to access health informa tion online - Detail Indication:Non-smoker Start:26-Apr-2020 Instruction Type:Patient Education Patient Instructions Indication:Non-smoker Start:26-Apr-2020 Instruction Type:Provider Instructions for Treatment How to access health informa tion online Indication:Non-smoker Start:22-Oct-2019 Instruction Type:Patient Education How to access health informa tion online - Detail Indication:Non-smoker Start:22-Oct-2019 Instruction Type:Patient Education Patient Instructions Indication:Non-smoker Start:22-Oct-2019 Instruction Type:Provider Instructions for Treatment How to access health informa tion online Indication:BMI 25.0-25.9,adult Start:21-Oct-2019 Instruction Type:Patient Education How to access health informa tion online - Detail Indication:BMI 25.0-25.9,adult Start:21-Oct-2019 Instruction Type:Patient Education Patient Instructions Indication:BMI 25.0-25.9,adult Start:21-Oct-2019 Instruction Type:Provider Instructions for Treatment How to access health informa tion online Indication:Non-smoker Start:05-Oct-2019 Instruction Type:Patient Education How to access health informa tion online - Detail Indication:Non-smoker Start:05-Oct-2019 Instruction Type:Patient Education Patient Instructions Indication:Non-smoker Start:05-Oct-2019 Instruction Type:Provider Instructions for Treatment How to access health informa tion online Indication:Non-smoker Start:02-Oct-2019 Instruction Type:Patient Education How to access health informa tion online - Detail Indication:Non-smoker Start:02-Oct-2019 Instruction Type:Patient Education Patient Instructions Indication:Non-smoker Start:02-Oct-2019 Instruction Type:Provider Instructions for Treatment How to access health informa tion online Indication:BMI 25.0-25.9,adult Start:25-Sep-2019 Instruction Type:Patient Education How to access health informa tion online - Detail Indication:BMI 25.0-25.9,adult Start:25-Sep-2019 Instruction Type:Patient Education Patient Instructions Indication:BMI 25.0-25.9,adult Start:25-Sep-2019 Instruction Type:Provider Instructions for Treatment How to access health informa tion online Indication:Non-smoker Start:23-Sep-2019 Instruction Type:Patient Education How to access health informa tion online - Detail Indication:Non-smoker Start:23-Sep-2019 Instruction Type:Patient Education Patient Instructions Indication:Non-smoker Start:23-Sep-2019 Instruction Type:Provider Instructions for Treatment How to access health informa tion online Indication:Non-smoker Start:07-Sep-2019 Instruction Type:Patient Education How to access health informa tion online - Detail Indication:Non-smoker Start:07-Sep-2019 Instruction Type:Patient Education Patient Instructions Indication:Non-smoker Start:07-Sep-2019 Instruction Type:Provider Instructions for Treatment How to access health informa tion online Indication:Sinusitis, acute Start:27-May-2015 Instruction Type:Patient Education How to access health informa tion online - Detail Indication:Sinusitis, acute Start:27-May-2015 Instruction Type:Patient Education Patient Instructions Indication:Sinusitis, acute Start:27-May-2015 Instruction Type:Provider Instructions for Treatment Patient Instructions Indication:Migraine Start:02-May-2015 Instruction Type:Provider Instructions for Treatment How to access health informa tion online Indication:Migraine Start:02-May-2015 Instruction Type:Patient Education How to access health informa tion online - Detail Indication:Migraine Start:02-May-2015 Instruction Type:Patient Education How to access health informa tion online Indication:Migraine Start:28-Mar-2015 Instruction Type:Patient Education How to access health informa tion online - Detail Indication:Migraine Start:28-Mar-2015 Instruction Type:Patient Education Patient Instructions Indication:Migraine Start:28-Mar-2015 Instruction Type:Provider Instructions for Treatment [facility]; [facility] Work Phone: Instructions* Name Dates Details Patient Instructions Indication:BMI 27.0-27.9,adult Start:13-Apr-2022 Instruction Type:Provider Instructions for Treatment How to Access Health Informa tion Online using Patient Portal and [employer]rd [employer] Apps Indication:BMI 27.0-27.9,adult Start:13-Apr-2022 Instruction Type:Patient Education Patient Instructions Indication:Non-smoker Start:24-Jul-2021 Instruction Type:Provider Instructions for Treatment How to Access Health Informa tion Online using Patient Portal and [employer]rd [employer] Apps Indication:Non-smoker Start:24-Jul-2021 Instruction Type:Patient Education Patient Instructions Indication:Non-smoker Start:15-May-2021 Instruction Type:Provider Instructions for Treatment How to Access Health Informa tion Online using Patient Portal and [employer]rd [employer] Apps Indication:Non-smoker Start:15-May-2021 Instruction Type:Patient Education How to access health informa tion online Indication:Non-smoker Start:26-Apr-2020 Instruction Type:Patient Education How to access health informa tion online - Detail Indication:Non-smoker Start:26-Apr-2020 Instruction Type:Patient Education Patient Instructions Indication:Non-smoker Start:26-Apr-2020 Instruction Type:Provider Instructions for Treatment How to access health informa tion online Indication:Non-smoker Start:22-Oct-2019 Instruction Type:Patient Education How to access health informa tion online - Detail Indication:Non-smoker Start:22-Oct-2019 Instruction Type:Patient Education Patient Instructions Indication:Non-smoker Start:22-Oct-2019 Instruction Type:Provider Instructions for Treatment How to access health informa tion online Indication:BMI 25.0-25.9,adult Start:21-Oct-2019 Instruction Type:Patient Education How to access health informa tion online - Detail Indication:BMI 25.0-25.9,adult Start:21-Oct-2019 Instruction Type:Patient Education Patient Instructions Indication:BMI 25.0-25.9,adult Start:21-Oct-2019 Instruction Type:Provider Instructions for Treatment How to access health informa tion online Indication:Non-smoker Start:05-Oct-2019 Instruction Type:Patient Education How to access health informa tion online - Detail Indication:Non-smoker Start:05-Oct-2019 Instruction Type:Patient Education Patient Instructions Indication:Non-smoker Start:05-Oct-2019 Instruction Type:Provider Instructions for Treatment How to access health informa tion online Indication:Non-smoker Start:02-Oct-2019 Instruction Type:Patient Education How to access health informa tion online - Detail Indication:Non-smoker Start:02-Oct-2019 Instruction Type:Patient Education Patient Instructions Indication:Non-smoker Start:02-Oct-2019 Instruction Type:Provider Instructions for Treatment How to access health informa tion online Indication:BMI 25.0-25.9,adult Start:25-Sep-2019 Instruction Type:Patient Education How to access health informa tion online - Detail Indication:BMI 25.0-25.9,adult Start:25-Sep-2019 Instruction Type:Patient Education Patient Instructions Indication:BMI 25.0-25.9,adult Start:25-Sep-2019 Instruction Type:Provider Instructions for Treatment How to access health informa tion online Indication:Non-smoker Start:23-Sep-2019 Instruction Type:Patient Education How to access health informa tion online - Detail Indication:Non-smoker Start:23-Sep-2019 Instruction Type:Patient Education Patient Instructions Indication:Non-smoker Start:23-Sep-2019 Instruction Type:Provider Instructions for Treatment How to access health informa tion online Indication:Non-smoker Start:07-Sep-2019 Instruction Type:Patient Education How to access health informa tion online - Detail Indication:Non-smoker Start:07-Sep-2019 Instruction Type:Patient Education Patient Instructions Indication:Non-smoker Start:07-Sep-2019 Instruction Type:Provider Instructions for Treatment How to access health informa tion online Indication:Sinusitis, acute Start:27-May-2015 Instruction Type:Patient Education How to access health informa tion online - Detail Indication:Sinusitis, acute Start:27-May-2015 Instruction Type:Patient Education Patient Instructions Indication:Sinusitis, acute Start:27-May-2015 Instruction Type:Provider Instructions for Treatment Patient Instructions Indication:Migraine Start:02-May-2015 Instruction Type:Provider Instructions for Treatment How to access health informa tion online Indication:Migraine Start:02-May-2015 Instruction Type:Patient Education How to access health informa tion online - Detail Indication:Migraine Start:02-May-2015 Instruction Type:Patient Education How to access health informa tion online Indication:Migraine Start:28-Mar-2015 Instruction Type:Patient Education How to access health informa tion online - Detail Indication:Migraine Start:28-Mar-2015 Instruction Type:Patient Education Patient Instructions Indication:Migraine Start:28-Mar-2015 Instruction Type:Provider Instructions for Treatment [facility]; [facility] Work Phone: Instructions* Name Dates Details Patient Instructions Indication:BMI 27.0-27.9,adult Start:13-Apr-2022 Instruction Type:Provider Instructions for Treatment How to Access Health Informa tion Online using Patient Portal and [employer]rd [employer] Apps Indication:BMI 27.0-27.9,adult Start:13-Apr-2022 Instruction Type:Patient Education Patient Instructions Indication:Non-smoker Start:24-Jul-2021 Instruction Type:Provider Instructions for Treatment How to Access Health Informa tion Online using Patient Portal and [employer] Apps Indication:Non-smoker Start:24-Jul-2021 Instruction Type:Patient Education Patient Instructions Indication:Non-smoker Start:15-May-2021 Instruction Type:Provider Instructions for Treatment How to Access Health Informa tion Online using Patient Portal and [employer]rd [employer] Apps Indication:Non-smoker Start:15-May-2021 Instruction Type:Patient Education How to access health informa tion online Indication:Non-smoker Start:26-Apr-2020 Instruction Type:Patient Education How to access health informa tion online - Detail Indication:Non-smoker Start:26-Apr-2020 Instruction Type:Patient Education Patient Instructions Indication:Non-smoker Start:26-Apr-2020 Instruction Type:Provider Instructions for Treatment How to access health informa tion online Indication:Non-smoker Start:22-Oct-2019 Instruction Type:Patient Education How to access health informa tion online - Detail Indication:Non-smoker Start:22-Oct-2019 Instruction Type:Patient Education Patient Instructions Indication:Non-smoker Start:22-Oct-2019 Instruction Type:Provider Instructions for Treatment How to access health informa tion online Indication:BMI 25.0-25.9,adult Start:21-Oct-2019 Instruction Type:Patient Education How to access health informa tion online - Detail Indication:BMI 25.0-25.9,adult Start:21-Oct-2019 Instruction Type:Patient Education Patient Instructions Indication:BMI 25.0-25.9,adult Start:21-Oct-2019 Instruction Type:Provider Instructions for Treatment How to access health informa tion online Indication:Non-smoker Start:05-Oct-2019 Instruction Type:Patient Education How to access health informa tion online - Detail Indication:Non-smoker Start:05-Oct-2019 Instruction Type:Patient Education Patient Instructions Indication:Non-smoker Start:05-Oct-2019 Instruction Type:Provider Instructions for Treatment How to access health informa tion online Indication:Non-smoker Start:02-Oct-2019 Instruction Type:Patient Education How to access health informa tion online - Detail Indication:Non-smoker Start:02-Oct-2019 Instruction Type:Patient Education Patient Instructions Indication:Non-smoker Start:02-Oct-2019 Instruction Type:Provider Instructions for Treatment How to access health informa tion online Indication:BMI 25.0-25.9,adult Start:25-Sep-2019 Instruction Type:Patient Education How to access health informa tion online - Detail Indication:BMI 25.0-25.9,adult Start:25-Sep-2019 Instruction Type:Patient Education Patient Instructions Indication:BMI 25.0-25.9,adult Start:25-Sep-2019 Instruction Type:Provider Instructions for Treatment How to access health informa tion online Indication:Non-smoker Start:23-Sep-2019 Instruction Type:Patient Education How to access health informa tion online - Detail Indication:Non-smoker Start:23-Sep-2019 Instruction Type:Patient Education Patient Instructions Indication:Non-smoker Start:23-Sep-2019 Instruction Type:Provider Instructions for Treatment How to access health informa tion online Indication:Non-smoker Start:07-Sep-2019 Instruction Type:Patient Education How to access health informa tion online - Detail Indication:Non-smoker Start:07-Sep-2019 Instruction Type:Patient Education Patient Instructions Indication:Non-smoker Start:07-Sep-2019 Instruction Type:Provider Instructions for Treatment How to access health informa tion online Indication:Sinusitis, acute Start:27-May-2015 Instruction Type:Patient Education How to access health informa tion online - Detail Indication:Sinusitis, acute Start:27-May-2015 Instruction Type:Patient Education Patient Instructions Indication:Sinusitis, acute Start:27-May-2015 Instruction Type:Provider Instructions for Treatment Patient Instructions Indication:Migraine Start:02-May-2015 Instruction Type:Provider Instructions for Treatment How to access health informa tion online Indication:Migraine Start:02-May-2015 Instruction Type:Patient Education How to access health informa tion online - Detail Indication:Migraine Start:02-May-2015 Instruction Type:Patient Education How to access health informa tion online Indication:Migraine Start:28-Mar-2015 Instruction Type:Patient Education How to access health informa tion online - Detail Indication:Migraine Start:28-Mar-2015 Instruction Type:Patient Education Patient Instructions Indication:Migraine Start:28-Mar-2015 Instruction Type:Provider Instructions for Treatment [facility]; [facility] Work Phone: Instructions* Name Dates Details Patient Instructions Indication:BMI 27.0-27.9,adult Start:13-Apr-2022 Instruction Type:Provider Instructions for Treatment How to Access Health Informa tion Online using Patient Portal and [employer]rd [employer] Apps Indication:BMI 27.0-27.9,adult Start:13-Apr-2022 Instruction Type:Patient Education Patient Instructions Indication:Non-smoker Start:24-Jul-2021 Instruction Type:Provider Instructions for Treatment How to Access Health Informa tion Online using Patient Portal and [employer]rd [employer] Apps Indication:Non-smoker Start:24-Jul-2021 Instruction Type:Patient Education Patient Instructions Indication:Non-smoker Start:15-May-2021 Instruction Type:Provider Instructions for Treatment How to Access Health Informa tion Online using Patient Portal and [employer]rd [employer] Apps Indication:Non-smoker Start:15-May-2021 Instruction Type:Patient Education How to access health informa tion online Indication:Non-smoker Start:26-Apr-2020 Instruction Type:Patient Education How to access health informa tion online - Detail Indication:Non-smoker Start:26-Apr-2020 Instruction Type:Patient Education Patient Instructions Indication:Non-smoker Start:26-Apr-2020 Instruction Type:Provider Instructions for Treatment How to access health informa tion online Indication:Non-smoker Start:22-Oct-2019 Instruction Type:Patient Education How to access health informa tion online - Detail Indication:Non-smoker Start:22-Oct-2019 Instruction Type:Patient Education Patient Instructions Indication:Non-smoker Start:22-Oct-2019 Instruction Type:Provider Instructions for Treatment How to access health informa tion online Indication:BMI 25.0-25.9,adult Start:21-Oct-2019 Instruction Type:Patient Education How to access health informa tion online - Detail Indication:BMI 25.0-25.9,adult Start:21-Oct-2019 Instruction Type:Patient Education Patient Instructions Indication:BMI 25.0-25.9,adult Start:21-Oct-2019 Instruction Type:Provider Instructions for Treatment How to access health informa tion online Indication:Non-smoker Start:05-Oct-2019 Instruction Type:Patient Education How to access health informa tion online - Detail Indication:Non-smoker Start:05-Oct-2019 Instruction Type:Patient Education Patient Instructions Indication:Non-smoker Start:05-Oct-2019 Instruction Type:Provider Instructions for Treatment How to access health informa tion online Indication:Non-smoker Start:02-Oct-2019 Instruction Type:Patient Education How to access health informa tion online - Detail Indication:Non-smoker Start:02-Oct-2019 Instruction Type:Patient Education Patient Instructions Indication:Non-smoker Start:02-Oct-2019 Instruction Type:Provider Instructions for Treatment How to access health informa tion online Indication:BMI 25.0-25.9,adult Start:25-Sep-2019 Instruction Type:Patient Education How to access health informa tion online - Detail Indication:BMI 25.0-25.9,adult Start:25-Sep-2019 Instruction Type:Patient Education Patient Instructions Indication:BMI 25.0-25.9,adult Start:25-Sep-2019 Instruction Type:Provider Instructions for Treatment How to access health informa tion online Indication:Non-smoker Start:23-Sep-2019 Instruction Type:Patient Education How to access health informa tion online - Detail Indication:Non-smoker Start:23-Sep-2019 Instruction Type:Patient Education Patient Instructions Indication:Non-smoker Start:23-Sep-2019 Instruction Type:Provider Instructions for Treatment How to access health informa tion online Indication:Non-smoker Start:07-Sep-2019 Instruction Type:Patient Education How to access health informa tion online - Detail Indication:Non-smoker Start:07-Sep-2019 Instruction Type:Patient Education Patient Instructions Indication:Non-smoker Start:07-Sep-2019 Instruction Type:Provider Instructions for Treatment How to access health informa tion online Indication:Sinusitis, acute Start:27-May-2015 Instruction Type:Patient Education How to access health informa tion online - Detail Indication:Sinusitis, acute Start:27-May-2015 Instruction Type:Patient Education Patient Instructions Indication:Sinusitis, acute Start:27-May-2015 Instruction Type:Provider Instructions for Treatment Patient Instructions Indication:Migraine Start:02-May-2015 Instruction Type:Provider Instructions for Treatment How to access health informa tion online Indication:Migraine Start:02-May-2015 Instruction Type:Patient Education How to access health informa tion online - Detail Indication:Migraine Start:02-May-2015 Instruction Type:Patient Education How to access health informa tion online Indication:Migraine Start:28-Mar-2015 Instruction Type:Patient Education How to access health informa tion online - Detail Indication:Migraine Start:28-Mar-2015 Instruction Type:Patient Education Patient Instructions Indication:Migraine Start:28-Mar-2015 Instruction Type:Provider Instructions for Treatment [facility]; [facility] Work Phone: Instructions* Name Dates Details Patient Instructions Indication:Non-smoker Start:28-Aug-2022 Instruction Type:Provider Instructions for Treatment How to Access Health Informa tion Online using Patient Portal and [employer] Apps Indication:Non-smoker Start:28-Aug-2022 Instruction Type:Patient Education Patient Instructions Indication:BMI 27.0-27.9,adult Start:13-Apr-2022 Instruction Type:Provider Instructions for Treatment How to Access Health Informa tion Online using Patient Portal and [employer] Apps Indication:BMI 27.0-27.9,adult Start:13-Apr-2022 Instruction Type:Patient Education Patient Instructions Indication:Non-smoker Start:24-Jul-2021 Instruction Type:Provider Instructions for Treatment How to Access Health Informa tion Online using Patient Portal and [employer]rd [employer] Apps Indication:Non-smoker Start:24-Jul-2021 Instruction Type:Patient Education Patient Instructions Indication:Non-smoker Start:15-May-2021 Instruction Type:Provider Instructions for Treatment How to Access Health Informa tion Online using Patient Portal and [employer]rd [employer] Apps Indication:Non-smoker Start:15-May-2021 Instruction Type:Patient Education How to access health informa tion online Indication:Non-smoker Start:26-Apr-2020 Instruction Type:Patient Education How to access health informa tion online - Detail Indication:Non-smoker Start:26-Apr-2020 Instruction Type:Patient Education Patient Instructions Indication:Non-smoker Start:26-Apr-2020 Instruction Type:Provider Instructions for Treatment How to access health informa tion online Indication:Non-smoker Start:22-Oct-2019 Instruction Type:Patient Education How to access health informa tion online - Detail Indication:Non-smoker Start:22-Oct-2019 Instruction Type:Patient Education Patient Instructions Indication:Non-smoker Start:22-Oct-2019 Instruction Type:Provider Instructions for Treatment How to access health informa tion online Indication:BMI 25.0-25.9,adult Start:21-Oct-2019 Instruction Type:Patient Education How to access health informa tion online - Detail Indication:BMI 25.0-25.9,adult Start:21-Oct-2019 Instruction Type:Patient Education Patient Instructions Indication:BMI 25.0-25.9,adult Start:21-Oct-2019 Instruction Type:Provider Instructions for Treatment How to access health informa tion online Indication:Non-smoker Start:05-Oct-2019 Instruction Type:Patient Education How to access health informa tion online - Detail Indication:Non-smoker Start:05-Oct-2019 Instruction Type:Patient Education Patient Instructions Indication:Non-smoker Start:05-Oct-2019 Instruction Type:Provider Instructions for Treatment How to access health informa tion online Indication:Non-smoker Start:02-Oct-2019 Instruction Type:Patient Education How to access health informa tion online - Detail Indication:Non-smoker Start:02-Oct-2019 Instruction Type:Patient Education Patient Instructions Indication:Non-smoker Start:02-Oct-2019 Instruction Type:Provider Instructions for Treatment How to access health informa tion online Indication:BMI 25.0-25.9,adult Start:25-Sep-2019 Instruction Type:Patient Education How to access health informa tion online - Detail Indication:BMI 25.0-25.9,adult Start:25-Sep-2019 Instruction Type:Patient Education Patient Instructions Indication:BMI 25.0-25.9,adult Start:25-Sep-2019 Instruction Type:Provider Instructions for Treatment How to access health informa tion online Indication:Non-smoker Start:23-Sep-2019 Instruction Type:Patient Education How to access health informa tion online - Detail Indication:Non-smoker Start:23-Sep-2019 Instruction Type:Patient Education Patient Instructions Indication:Non-smoker Start:23-Sep-2019 Instruction Type:Provider Instructions for Treatment How to access health informa tion online Indication:Non-smoker Start:07-Sep-2019 Instruction Type:Patient Education How to access health informa tion online - Detail Indication:Non-smoker Start:07-Sep-2019 Instruction Type:Patient Education Patient Instructions Indication:Non-smoker Start:07-Sep-2019 Instruction Type:Provider Instructions for Treatment How to access health informa tion online Indication:Sinusitis, acute Start:27-May-2015 Instruction Type:Patient Education How to access health informa tion online - Detail Indication:Sinusitis, acute Start:27-May-2015 Instruction Type:Patient Education Patient Instructions Indication:Sinusitis, acute Start:27-May-2015 Instruction Type:Provider Instructions for Treatment Patient Instructions Indication:Migraine Start:02-May-2015 Instruction Type:Provider Instructions for Treatment How to access health informa tion online Indication:Migraine Start:02-May-2015 Instruction Type:Patient Education How to access health informa tion online - Detail Indication:Migraine Start:02-May-2015 Instruction Type:Patient Education How to access health informa tion online Indication:Migraine Start:28-Mar-2015 Instruction Type:Patient Education How to access health informa tion online - Detail Indication:Migraine Start:28-Mar-2015 Instruction Type:Patient Education Patient Instructions Indication:Migraine Start:28-Mar-2015 Instruction Type:Provider Instructions for Treatment [facility]; [facility] Work Phone: Instructions* Name Dates Details Patient Instructions Indication:Non-smoker Start:28-Aug-2022 Instruction Type:Provider Instructions for Treatment How to Access Health Informa tion Online using Patient Portal and [employer]rd [employer] Apps Indication:Non-smoker Start:28-Aug-2022 Instruction Type:Patient Education Patient Instructions Indication:BMI 27.0-27.9,adult Start:13-Apr-2022 Instruction Type:Provider Instructions for Treatment How to Access Health Informa tion Online using Patient Portal and [employer]rd [employer] Apps Indication:BMI 27.0-27.9,adult Start:13-Apr-2022 Instruction Type:Patient Education Patient Instructions Indication:Non-smoker Start:24-Jul-2021 Instruction Type:Provider Instructions for Treatment How to Access Health Informa tion Online using Patient Portal and [employer]rd [employer] Apps Indication:Non-smoker Start:24-Jul-2021 Instruction Type:Patient Education Patient Instructions Indication:Non-smoker Start:15-May-2021 Instruction Type:Provider Instructions for Treatment How to Access Health Informa tion Online using Patient Portal and [employer]rd [employer] Apps Indication:Non-smoker Start:15-May-2021 Instruction Type:Patient Education How to access health informa tion online Indication:Non-smoker Start:26-Apr-2020 Instruction Type:Patient Education How to access health informa tion online - Detail Indication:Non-smoker Start:26-Apr-2020 Instruction Type:Patient Education Patient Instructions Indication:Non-smoker Start:26-Apr-2020 Instruction Type:Provider Instructions for Treatment How to access health informa tion online Indication:Non-smoker Start:22-Oct-2019 Instruction Type:Patient Education How to access health informa tion online - Detail Indication:Non-smoker Start:22-Oct-2019 Instruction Type:Patient Education Patient Instructions Indication:Non-smoker Start:22-Oct-2019 Instruction Type:Provider Instructions for Treatment How to access health informa tion online Indication:BMI 25.0-25.9,adult Start:21-Oct-2019 Instruction Type:Patient Education How to access health informa tion online - Detail Indication:BMI 25.0-25.9,adult Start:21-Oct-2019 Instruction Type:Patient Education Patient Instructions Indication:BMI 25.0-25.9,adult Start:21-Oct-2019 Instruction Type:Provider Instructions for Treatment How to access health informa tion online Indication:Non-smoker Start:05-Oct-2019 Instruction Type:Patient Education How to access health informa tion online - Detail Indication:Non-smoker Start:05-Oct-2019 Instruction Type:Patient Education Patient Instructions Indication:Non-smoker Start:05-Oct-2019 Instruction Type:Provider Instructions for Treatment How to access health informa tion online Indication:Non-smoker Start:02-Oct-2019 Instruction Type:Patient Education How to access health informa tion online - Detail Indication:Non-smoker Start:02-Oct-2019 Instruction Type:Patient Education Patient Instructions Indication:Non-smoker Start:02-Oct-2019 Instruction Type:Provider Instructions for Treatment How to access health informa tion online Indication:BMI 25.0-25.9,adult Start:25-Sep-2019 Instruction Type:Patient Education How to access health informa tion online - Detail Indication:BMI 25.0-25.9,adult Start:25-Sep-2019 Instruction Type:Patient Education Patient Instructions Indication:BMI 25.0-25.9,adult Start:25-Sep-2019 Instruction Type:Provider Instructions for Treatment How to access health informa tion online Indication:Non-smoker Start:23-Sep-2019 Instruction Type:Patient Education How to access health informa tion online - Detail Indication:Non-smoker Start:23-Sep-2019 Instruction Type:Patient Education Patient Instructions Indication:Non-smoker Start:23-Sep-2019 Instruction Type:Provider Instructions for Treatment How to access health informa tion online Indication:Non-smoker Start:07-Sep-2019 Instruction Type:Patient Education How to access health informa tion online - Detail Indication:Non-smoker Start:07-Sep-2019 Instruction Type:Patient Education Patient Instructions Indication:Non-smoker Start:07-Sep-2019 Instruction Type:Provider Instructions for Treatment How to access health informa tion online Indication:Sinusitis, acute Start:27-May-2015 Instruction Type:Patient Education How to access health informa tion online - Detail Indication:Sinusitis, acute Start:27-May-2015 Instruction Type:Patient Education Patient Instructions Indication:Sinusitis, acute Start:27-May-2015 Instruction Type:Provider Instructions for Treatment Patient Instructions Indication:Migraine Start:02-May-2015 Instruction Type:Provider Instructions for Treatment How to access health informa tion online Indication:Migraine Start:02-May-2015 Instruction Type:Patient Education How to access health informa tion online - Detail Indication:Migraine Start:02-May-2015 Instruction Type:Patient Education How to access health informa tion online Indication:Migraine Start:28-Mar-2015 Instruction Type:Patient Education How to access health informa tion online - Detail Indication:Migraine Start:28-Mar-2015 Instruction Type:Patient Education Patient Instructions Indication:Migraine Start:28-Mar-2015 Instruction Type:Provider Instructions for Treatment [facility]; [facility] Work Phone: Instructions* Name Dates Details Patient Instructions Indication:Non-smoker Start:04-Sep-2022 Instruction Type:Provider Instructions for Treatment How to Access Health Informa tion Online using Patient Portal and [employer]rd [employer] Apps Indication:Non-smoker Start:04-Sep-2022 Instruction Type:Patient Education Patient Instructions Indication:Non-smoker Start:28-Aug-2022 Instruction Type:Provider Instructions for Treatment How to Access Health Informa tion Online using Patient Portal and [employer]rd [employer] Apps Indication:Non-smoker Start:28-Aug-2022 Instruction Type:Patient Education Patient Instructions Indication:BMI 27.0-27.9,adult Start:13-Apr-2022 Instruction Type:Provider Instructions for Treatment How to Access Health Informa tion Online using Patient Portal and [employer]rd [employer] Apps Indication:BMI 27.0-27.9,adult Start:13-Apr-2022 Instruction Type:Patient Education Patient Instructions Indication:Non-smoker Start:24-Jul-2021 Instruction Type:Provider Instructions for Treatment How to Access Health Informa tion Online using Patient Portal and [employer]rd [employer] Apps Indication:Non-smoker Start:24-Jul-2021 Instruction Type:Patient Education Patient Instructions Indication:Non-smoker Start:15-May-2021 Instruction Type:Provider Instructions for Treatment How to Access Health Informa tion Online using Patient Portal and [employer]rd [employer] Apps Indication:Non-smoker Start:15-May-2021 Instruction Type:Patient Education How to access health informa tion online Indication:Non-smoker Start:26-Apr-2020 Instruction Type:Patient Education How to access health informa tion online - Detail Indication:Non-smoker Start:26-Apr-2020 Instruction Type:Patient Education Patient Instructions Indication:Non-smoker Start:26-Apr-2020 Instruction Type:Provider Instructions for Treatment How to access health informa tion online Indication:Non-smoker Start:22-Oct-2019 Instruction Type:Patient Education How to access health informa tion online - Detail Indication:Non-smoker Start:22-Oct-2019 Instruction Type:Patient Education Patient Instructions Indication:Non-smoker Start:22-Oct-2019 Instruction Type:Provider Instructions for Treatment How to access health informa tion online Indication:BMI 25.0-25.9,adult Start:21-Oct-2019 Instruction Type:Patient Education How to access health informa tion online - Detail Indication:BMI 25.0-25.9,adult Start:21-Oct-2019 Instruction Type:Patient Education Patient Instructions Indication:BMI 25.0-25.9,adult Start:21-Oct-2019 Instruction Type:Provider Instructions for Treatment How to access health informa tion online Indication:Non-smoker Start:05-Oct-2019 Instruction Type:Patient Education How to access health informa tion online - Detail Indication:Non-smoker Start:05-Oct-2019 Instruction Type:Patient Education Patient Instructions Indication:Non-smoker Start:05-Oct-2019 Instruction Type:Provider Instructions for Treatment How to access health informa tion online Indication:Non-smoker Start:02-Oct-2019 Instruction Type:Patient Education How to access health informa tion online - Detail Indication:Non-smoker Start:02-Oct-2019 Instruction Type:Patient Education Patient Instructions Indication:Non-smoker Start:02-Oct-2019 Instruction Type:Provider Instructions for Treatment How to access health informa tion online Indication:BMI 25.0-25.9,adult Start:25-Sep-2019 Instruction Type:Patient Education How to access health informa tion online - Detail Indication:BMI 25.0-25.9,adult Start:25-Sep-2019 Instruction Type:Patient Education Patient Instructions Indication:BMI 25.0-25.9,adult Start:25-Sep-2019 Instruction Type:Provider Instructions for Treatment How to access health informa tion online Indication:Non-smoker Start:23-Sep-2019 Instruction Type:Patient Education How to access health informa tion online - Detail Indication:Non-smoker Start:23-Sep-2019 Instruction Type:Patient Education Patient Instructions Indication:Non-smoker Start:23-Sep-2019 Instruction Type:Provider Instructions for Treatment How to access health informa tion online Indication:Non-smoker Start:07-Sep-2019 Instruction Type:Patient Education How to access health informa tion online - Detail Indication:Non-smoker Start:07-Sep-2019 Instruction Type:Patient Education Patient Instructions Indication:Non-smoker Start:07-Sep-2019 Instruction Type:Provider Instructions for Treatment How to access health informa tion online Indication:Sinusitis, acute Start:27-May-2015 Instruction Type:Patient Education How to access health informa tion online - Detail Indication:Sinusitis, acute Start:27-May-2015 Instruction Type:Patient Education Patient Instructions Indication:Sinusitis, acute Start:27-May-2015 Instruction Type:Provider Instructions for Treatment Patient Instructions Indication:Migraine Start:02-May-2015 Instruction Type:Provider Instructions for Treatment How to access health informa tion online Indication:Migraine Start:02-May-2015 Instruction Type:Patient Education How to access health informa tion online - Detail Indication:Migraine Start:02-May-2015 Instruction Type:Patient Education How to access health informa tion online Indication:Migraine Start:28-Mar-2015 Instruction Type:Patient Education How to access health informa tion online - Detail Indication:Migraine Start:28-Mar-2015 Instruction Type:Patient Education Patient Instructions Indication:Migraine Start:28-Mar-2015 Instruction Type:Provider Instructions for Treatment [facility]; [facility] Work Phone: Instructions* Name Dates Details Patient Instructions Indication:Non-smoker Start:04-Sep-2022 Instruction Type:Provider Instructions for Treatment How to Access Health Informa tion Online using Patient Portal and [employer]rd [employer] Apps Indication:Non-smoker Start:04-Sep-2022 Instruction Type:Patient Education Patient Instructions Indication:Non-smoker Start:28-Aug-2022 Instruction Type:Provider Instructions for Treatment How to Access Health Informa tion Online using Patient Portal and [employer]rd [employer] Apps Indication:Non-smoker Start:28-Aug-2022 Instruction Type:Patient Education Patient Instructions Indication:BMI 27.0-27.9,adult Start:13-Apr-2022 Instruction Type:Provider Instructions for Treatment How to Access Health Informa tion Online using Patient Portal and 3rd [employer] Apps Indication:BMI 27.0-27.9,adult Start:13-Apr-2022 Instruction Type:Patient Education Patient Instructions Indication:Non-smoker Start:24-Jul-2021 Instruction Type:Provider Instructions for Treatment How to Access Health Informa tion Online using Patient Portal and 3rd [employer] Apps Indication:Non-smoker Start:24-Jul-2021 Instruction Type:Patient Education Patient Instructions Indication:Non-smoker Start:15-May-2021 Instruction Type:Provider Instructions for Treatment How to Access Health Informa tion Online using Patient Portal and 3rd [employer] Apps Indication:Non-smoker Start:15-May-2021 Instruction Type:Patient Education How to access health informa tion online Indication:Non-smoker Start:26-Apr-2020 Instruction Type:Patient Education How to access health informa tion online - Detail Indication:Non-smoker Start:26-Apr-2020 Instruction Type:Patient Education Patient Instructions Indication:Non-smoker Start:26-Apr-2020 Instruction Type:Provider Instructions for Treatment How to access health informa tion online Indication:Non-smoker Start:22-Oct-2019 Instruction Type:Patient Education How to access health informa tion online - Detail Indication:Non-smoker Start:22-Oct-2019 Instruction Type:Patient Education Patient Instructions Indication:Non-smoker Start:22-Oct-2019 Instruction Type:Provider Instructions for Treatment How to access health informa tion online Indication:BMI 25.0-25.9,adult Start:21-Oct-2019 Instruction Type:Patient Education How to access health informa tion online - Detail Indication:BMI 25.0-25.9,adult Start:21-Oct-2019 Instruction Type:Patient Education Patient Instructions Indication:BMI 25.0-25.9,adult Start:21-Oct-2019 Instruction Type:Provider Instructions for Treatment How to access health informa tion online Indication:Non-smoker Start:05-Oct-2019 Instruction Type:Patient Education How to access health informa tion online - Detail Indication:Non-smoker Start:05-Oct-2019 Instruction Type:Patient Education Patient Instructions Indication:Non-smoker Start:05-Oct-2019 Instruction Type:Provider Instructions for Treatment How to access health informa tion online Indication:Non-smoker Start:02-Oct-2019 Instruction Type:Patient Education How to access health informa tion online - Detail Indication:Non-smoker Start:02-Oct-2019 Instruction Type:Patient Education Patient Instructions Indication:Non-smoker Start:02-Oct-2019 Instruction Type:Provider Instructions for Treatment How to access health informa tion online Indication:BMI 25.0-25.9,adult Start:25-Sep-2019 Instruction Type:Patient Education How to access health informa tion online - Detail Indication:BMI 25.0-25.9,adult Start:25-Sep-2019 Instruction Type:Patient Education Patient Instructions Indication:BMI 25.0-25.9,adult Start:25-Sep-2019 Instruction Type:Provider Instructions for Treatment How to access health informa tion online Indication:Non-smoker Start:23-Sep-2019 Instruction Type:Patient Education How to access health informa tion online - Detail Indication:Non-smoker Start:23-Sep-2019 Instruction Type:Patient Education Patient Instructions Indication:Non-smoker Start:23-Sep-2019 Instruction Type:Provider Instructions for Treatment How to access health informa tion online Indication:Non-smoker Start:07-Sep-2019 Instruction Type:Patient Education How to access health informa tion online - Detail Indication:Non-smoker Start:07-Sep-2019 Instruction Type:Patient Education Patient Instructions Indication:Non-smoker Start:07-Sep-2019 Instruction Type:Provider Instructions for Treatment How to access health informa tion online Indication:Sinusitis, acute Start:27-May-2015 Instruction Type:Patient Education How to access health informa tion online - Detail Indication:Sinusitis, acute Start:27-May-2015 Instruction Type:Patient Education Patient Instructions Indication:Sinusitis, acute Start:27-May-2015 Instruction Type:Provider Instructions for Treatment Patient Instructions Indication:Migraine Start:02-May-2015 Instruction Type:Provider Instructions for Treatment How to access health informa tion online Indication:Migraine Start:02-May-2015 Instruction Type:Patient Education How to access health informa tion online - Detail Indication:Migraine Start:02-May-2015 Instruction Type:Patient Education How to access health informa tion online Indication:Migraine Start:28-Mar-2015 Instruction Type:Patient Education How to access health informa tion online - Detail Indication:Migraine Start:28-Mar-2015 Instruction Type:Patient Education Patient Instructions Indication:Migraine Start:28-Mar-2015 Instruction Type:Provider Instructions for Treatment [facility]; [facility] Work Phone: Instructions* Name Dates Details Patient Instructions Indication:Non-smoker Start:04-Sep-2022 Instruction Type:Provider Instructions for Treatment How to Access Health Informa tion Online using Patient Portal and [employer]rd [employer] Apps Indication:Non-smoker Start:04-Sep-2022 Instruction Type:Patient Education Patient Instructions Indication:Non-smoker Start:28-Aug-2022 Instruction Type:Provider Instructions for Treatment How to Access Health Informa tion Online using Patient Portal and [employer]rd [employer] Apps Indication:Non-smoker Start:28-Aug-2022 Instruction Type:Patient Education Patient Instructions Indication:BMI 27.0-27.9,adult Start:13-Apr-2022 Instruction Type:Provider Instructions for Treatment How to Access Health Informa tion Online using Patient Portal and [employer]rd [employer] Apps Indication:BMI 27.0-27.9,adult Start:13-Apr-2022 Instruction Type:Patient Education Patient Instructions Indication:Non-smoker Start:24-Jul-2021 Instruction Type:Provider Instructions for Treatment How to Access Health Informa tion Online using Patient Portal and [employer]rd [employer] Apps Indication:Non-smoker Start:24-Jul-2021 Instruction Type:Patient Education Patient Instructions Indication:Non-smoker Start:15-May-2021 Instruction Type:Provider Instructions for Treatment How to Access Health Informa tion Online using Patient Portal and [employer]rd [employer] Apps Indication:Non-smoker Start:15-May-2021 Instruction Type:Patient Education How to access health informa tion online Indication:Non-smoker Start:26-Apr-2020 Instruction Type:Patient Education How to access health informa tion online - Detail Indication:Non-smoker Start:26-Apr-2020 Instruction Type:Patient Education Patient Instructions Indication:Non-smoker Start:26-Apr-2020 Instruction Type:Provider Instructions for Treatment How to access health informa tion online Indication:Non-smoker Start:22-Oct-2019 Instruction Type:Patient Education How to access health informa tion online - Detail Indication:Non-smoker Start:22-Oct-2019 Instruction Type:Patient Education Patient Instructions Indication:Non-smoker Start:22-Oct-2019 Instruction Type:Provider Instructions for Treatment How to access health informa tion online Indication:BMI 25.0-25.9,adult Start:21-Oct-2019 Instruction Type:Patient Education How to access health informa tion online - Detail Indication:BMI 25.0-25.9,adult Start:21-Oct-2019 Instruction Type:Patient Education Patient Instructions Indication:BMI 25.0-25.9,adult Start:21-Oct-2019 Instruction Type:Provider Instructions for Treatment How to access health informa tion online Indication:Non-smoker Start:05-Oct-2019 Instruction Type:Patient Education How to access health informa tion online - Detail Indication:Non-smoker Start:05-Oct-2019 Instruction Type:Patient Education Patient Instructions Indication:Non-smoker Start:05-Oct-2019 Instruction Type:Provider Instructions for Treatment How to access health informa tion online Indication:Non-smoker Start:02-Oct-2019 Instruction Type:Patient Education How to access health informa tion online - Detail Indication:Non-smoker Start:02-Oct-2019 Instruction Type:Patient Education Patient Instructions Indication:Non-smoker Start:02-Oct-2019 Instruction Type:Provider Instructions for Treatment How to access health informa tion online Indication:BMI 25.0-25.9,adult Start:25-Sep-2019 Instruction Type:Patient Education How to access health informa tion online - Detail Indication:BMI 25.0-25.9,adult Start:25-Sep-2019 Instruction Type:Patient Education Patient Instructions Indication:BMI 25.0-25.9,adult Start:25-Sep-2019 Instruction Type:Provider Instructions for Treatment How to access health informa tion online Indication:Non-smoker Start:23-Sep-2019 Instruction Type:Patient Education How to access health informa tion online - Detail Indication:Non-smoker Start:23-Sep-2019 Instruction Type:Patient Education Patient Instructions Indication:Non-smoker Start:23-Sep-2019 Instruction Type:Provider Instructions for Treatment How to access health informa tion online Indication:Non-smoker Start:07-Sep-2019 Instruction Type:Patient Education How to access health informa tion online - Detail Indication:Non-smoker Start:07-Sep-2019 Instruction Type:Patient Education Patient Instructions Indication:Non-smoker Start:07-Sep-2019 Instruction Type:Provider Instructions for Treatment How to access health informa tion online Indication:Sinusitis, acute Start:27-May-2015 Instruction Type:Patient Education How to access health informa tion online - Detail Indication:Sinusitis, acute Start:27-May-2015 Instruction Type:Patient Education Patient Instructions Indication:Sinusitis, acute Start:27-May-2015 Instruction Type:Provider Instructions for Treatment Patient Instructions Indication:Migraine Start:02-May-2015 Instruction Type:Provider Instructions for Treatment How to access health informa tion online Indication:Migraine Start:02-May-2015 Instruction Type:Patient Education How to access health informa tion online - Detail Indication:Migraine Start:02-May-2015 Instruction Type:Patient Education How to access health informa tion online Indication:Migraine Start:28-Mar-2015 Instruction Type:Patient Education How to access health informa tion online - Detail Indication:Migraine Start:28-Mar-2015 Instruction Type:Patient Education Patient Instructions Indication:Migraine Start:28-Mar-2015 Instruction Type:Provider Instructions for Treatment [facility]; [facility] Work Phone: Family History No Family History Records FoundUnknown Family Member Name Dates Details asthma Status:Active Family Members In General Comments:DM, HBP, High [place] sterol Status:Active Father Comments:AFIB Status:Active Unknown Family Member Name Dates Details asthma Status:Active Family Members In General Comments:DM, HBP, High [place] sterol Status:Active Father Comments:AFIB Status:Active Unknown Family Member Name Dates Details asthma Status:Active Family Members In General Comments:DM, HBP, High [place] sterol Status:Active Father Comments:AFIB Status:Active Unknown Family Member Name Dates Details asthma Status:Active Family Members In General Comments:DM, HBP, High [place] sterol Status:Active Father Comments:AFIB Status:Active Unknown Family Member Name Dates Details asthma Status:Active Family Members In General Comments:DM, HBP, High [place] sterol Status:Active Father Comments:AFIB Status:Active Unknown Family Member Name Dates Details asthma Status:Active Family Members In General Comments:DM, HBP, High catal[place] sterol Status:Active Father Comments:AFIB Status:Active Unknown Family Member Name Dates Details asthma Status:Active Family Members In General Comments:DM, HBP, High [place] sterol Status:Active Father Comments:AFIB Status:Active Unknown Family Member Name Dates Details asthma Status:Active Family Members In General Comments:DM, HBP, High catal[place] sterol Status:Active Father Comments:AFIB Status:Active Relationship Condition Age at Onset Recorded Date/[place] Not Specified Cardiac disease Unknown Hypertension Unknown Asthma Unknown father Diabetes mellitus Unknown Atrial fibrillation Unknown grandmother Diabetes mellitus Unknown Relationship Condition Age at Onset Recorded Date/[place] Not Specified Cardiac disease Unknown Hypertension Unknown Asthma Unknown father Diabetes mellitus Unknown Atrial fibrillation Unknown History of colonic polyps Unknown grandmother Diabetes mellitus Unknown Unknown Family Member Name Dates Details asthma Status:Active Family Members In General Comments:DM, HBP, High [place] sterol Status:Active Father Comments:AFIB Status:Active Unknown Family Member Name Dates Details asthma Status:Active Family Members In General Comments:DM, HBP, High catal[place] sterol Status:Active Father Comments:AFIB Status:Active Unknown Family Member Name Dates Details asthma Status:Active Family Members In General Comments:DM, HBP, High [place] sterol Status:Active Father Comments:AFIB Status:Active Unknown Family Member Name Dates Details asthma Status:Active Family Members In General Comments:DM, HBP, High [place] sterol Status:Active Father Comments:AFIB Status:Active Unknown Family Member Name Dates Details asthma Status:Active Family Members In General Comments:DM, HBP, High [place] sterol Status:Active Father Comments:AFIB Status:Active Unknown Family Member Name Dates Details asthma Status:Active Family Members In General Comments:DM, HBP, High catal[place] sterol Status:Active Father Comments:AFIB Status:Active Unknown Family Member Name Dates Details asthma Status:Active Family Members In General Comments:DM, HBP, High catal[place] sterol Status:Active Father Comments:AFIB Status:Active Unknown Family Member Name Dates Details asthma Status:Active Family Members In General Comments:DM, HBP, High catal[place] sterol Status:Active Father Comments:AFIB Status:Active Unknown Family Member Name Dates Details asthma Status:Active Family Members In General Comments:DM, HBP, High catal[place] sterol Status:Active Father Comments:AFIB Status:Active Unknown Family Member Name Dates Details asthma Status:Active Family Members In General Comments:DM, HBP, High catal[place] sterol Status:Active Father Comments:AFIB Status:Active Unknown Family Member Name Dates Details asthma Status:Active Family Members In General Comments:DM, HBP, High catal[place] sterol Status:Active Father Comments:AFIB Status:Active Instructions Name Dates Details Sinusitis, acute : How to ac cess health information online Indication:Sinusitis, acute Sinusitis, acute : How to ac cess health information online - Detail Indication:Sinusitis, acute Sinusitis, acute : Patient I nstructions Indication:Sinusitis, acute Migraine : Patient Instructi ons Indication:Migraine Migraine : How to access hea lth information online Indication:Migraine Migraine : How to access hea lth information online - Detail Indication:Migraine Name Dates Details How to access health informa tion online Indication:Non-smoker Start:22-Oct-2019 Instruction Type:Patient Education How to access health informa tion online - Detail Indication:Non-smoker Start:22-Oct-2019 Instruction Type:Patient Education Patient Instructions Indication:Non-smoker Start:22-Oct-2019 Instruction Type:Provider Instructions for Treatment How to access health informa tion online Indication:BMI 25.0-25.9,adult Start:21-Oct-2019 Instruction Type:Patient Education How to access health informa tion online - Detail Indication:BMI 25.0-25.9,adult Start:21-Oct-2019 Instruction Type:Patient Education Patient Instructions Indication:BMI 25.0-25.9,adult Start:21-Oct-2019 Instruction Type:Provider Instructions for Treatment How to access health informa tion online Indication:Non-smoker Start:05-Oct-2019 Instruction Type:Patient Education How to access health informa tion online - Detail Indication:Non-smoker Start:05-Oct-2019 Instruction Type:Patient Education Patient Instructions Indication:Non-smoker Start:05-Oct-2019 Instruction Type:Provider Instructions for Treatment How to access health informa tion online Indication:Non-smoker Start:02-Oct-2019 Instruction Type:Patient Education How to access health informa tion online - Detail Indication:Non-smoker Start:02-Oct-2019 Instruction Type:Patient Education Patient Instructions Indication:Non-smoker Start:02-Oct-2019 Instruction Type:Provider Instructions for Treatment How to access health informa tion online Indication:BMI 25.0-25.9,adult Start:25-Sep-2019 Instruction Type:Patient Education How to access health informa tion online - Detail Indication:BMI 25.0-25.9,adult Start:25-Sep-2019 Instruction Type:Patient Education Patient Instructions Indication:BMI 25.0-25.9,adult Start:25-Sep-2019 Instruction Type:Provider Instructions for Treatment How to access health informa tion online Indication:Non-smoker Start:23-Sep-2019 Instruction Type:Patient Education How to access health informa tion online - Detail Indication:Non-smoker Start:23-Sep-2019 Instruction Type:Patient Education Patient Instructions Indication:Non-smoker Start:23-Sep-2019 Instruction Type:Provider Instructions for Treatment How to access health informa tion online Indication:Non-smoker Start:07-Sep-2019 Instruction Type:Patient Education How to access health informa tion online - Detail Indication:Non-smoker Start:07-Sep-2019 Instruction Type:Patient Education Patient Instructions Indication:Non-smoker Start:07-Sep-2019 Instruction Type:Provider Instructions for Treatment How to access health informa tion online Indication:Sinusitis, acute Start:27-May-2015 Instruction Type:Patient Education How to access health informa tion online - Detail Indication:Sinusitis, acute Start:27-May-2015 Instruction Type:Patient Education Patient Instructions Indication:Sinusitis, acute Start:27-May-2015 Instruction Type:Provider Instructions for Treatment Patient Instructions Indication:Migraine Start:02-May-2015 Instruction Type:Provider Instructions for Treatment How to access health informa tion online Indication:Migraine Start:02-May-2015 Instruction Type:Patient Education How to access health informa tion online - Detail Indication:Migraine Start:02-May-2015 Instruction Type:Patient Education How to access health informa tion online Indication:Migraine Start:28-Mar-2015 Instruction Type:Patient Education How to access health informa tion online - Detail Indication:Migraine Start:28-Mar-2015 Instruction Type:Patient Education Patient Instructions Indication:Migraine Start:28-Mar-2015 Instruction Type:Provider Instructions for Treatment Name Dates Details How to access health informa tion online Indication:Non-smoker Start:26-Apr-2020 Instruction Type:Patient Education How to access health informa tion online - Detail Indication:Non-smoker Start:26-Apr-2020 Instruction Type:Patient Education Patient Instructions Indication:Non-smoker Start:26-Apr-2020 Instruction Type:Provider Instructions for Treatment How to access health informa tion online Indication:Non-smoker Start:22-Oct-2019 Instruction Type:Patient Education How to access health informa tion online - Detail Indication:Non-smoker Start:22-Oct-2019 Instruction Type:Patient Education Patient Instructions Indication:Non-smoker Start:22-Oct-2019 Instruction Type:Provider Instructions for Treatment How to access health informa tion online Indication:BMI 25.0-25.9,adult Start:21-Oct-2019 Instruction Type:Patient Education How to access health informa tion online - Detail Indication:BMI 25.0-25.9,adult Start:21-Oct-2019 Instruction Type:Patient Education Patient Instructions Indication:BMI 25.0-25.9,adult Start:21-Oct-2019 Instruction Type:Provider Instructions for Treatment How to access health informa tion online Indication:Non-smoker Start:05-Oct-2019 Instruction Type:Patient Education How to access health informa tion online - Detail Indication:Non-smoker Start:05-Oct-2019 Instruction Type:Patient Education Patient Instructions Indication:Non-smoker Start:05-Oct-2019 Instruction Type:Provider Instructions for Treatment How to access health informa tion online Indication:Non-smoker Start:02-Oct-2019 Instruction Type:Patient Education How to access health informa tion online - Detail Indication:Non-smoker Start:02-Oct-2019 Instruction Type:Patient Education Patient Instructions Indication:Non-smoker Start:02-Oct-2019 Instruction Type:Provider Instructions for Treatment How to access health informa tion online Indication:BMI 25.0-25.9,adult Start:25-Sep-2019 Instruction Type:Patient Education How to access health informa tion online - Detail Indication:BMI 25.0-25.9,adult Start:25-Sep-2019 Instruction Type:Patient Education Patient Instructions Indication:BMI 25.0-25.9,adult Start:25-Sep-2019 Instruction Type:Provider Instructions for Treatment How to access health informa tion online Indication:Non-smoker Start:23-Sep-2019 Instruction Type:Patient Education How to access health informa tion online - Detail Indication:Non-smoker Start:23-Sep-2019 Instruction Type:Patient Education Patient Instructions Indication:Non-smoker Start:23-Sep-2019 Instruction Type:Provider Instructions for Treatment How to access health informa tion online Indication:Non-smoker Start:07-Sep-2019 Instruction Type:Patient Education How to access health informa tion online - Detail Indication:Non-smoker Start:07-Sep-2019 Instruction Type:Patient Education Patient Instructions Indication:Non-smoker Start:07-Sep-2019 Instruction Type:Provider Instructions for Treatment How to access health informa tion online Indication:Sinusitis, acute Start:27-May-2015 Instruction Type:Patient Education How to access health informa tion online - Detail Indication:Sinusitis, acute Start:27-May-2015 Instruction Type:Patient Education Patient Instructions Indication:Sinusitis, acute Start:27-May-2015 Instruction Type:Provider Instructions for Treatment Patient Instructions Indication:Migraine Start:02-May-2015 Instruction Type:Provider Instructions for Treatment How to access health informa tion online Indication:Migraine Start:02-May-2015 Instruction Type:Patient Education How to access health informa tion online - Detail Indication:Migraine Start:02-May-2015 Instruction Type:Patient Education How to access health informa tion online Indication:Migraine Start:28-Mar-2015 Instruction Type:Patient Education How to access health informa tion online - Detail Indication:Migraine Start:28-Mar-2015 Instruction Type:Patient Education Patient Instructions Indication:Migraine Start:28-Mar-2015 Instruction Type:Provider Instructions for Treatment Name Dates Details How to access health informa tion online Indication:Non-smoker Start:26-Apr-2020 Instruction Type:Patient Education How to access health informa tion online - Detail Indication:Non-smoker Start:26-Apr-2020 Instruction Type:Patient Education Patient Instructions Indication:Non-smoker Start:26-Apr-2020 Instruction Type:Provider Instructions for Treatment How to access health informa tion online Indication:Non-smoker Start:22-Oct-2019 Instruction Type:Patient Education How to access health informa tion online - Detail Indication:Non-smoker Start:22-Oct-2019 Instruction Type:Patient Education Patient Instructions Indication:Non-smoker Start:22-Oct-2019 Instruction Type:Provider Instructions for Treatment How to access health informa tion online Indication:BMI 25.0-25.9,adult Start:21-Oct-2019 Instruction Type:Patient Education How to access health informa tion online - Detail Indication:BMI 25.0-25.9,adult Start:21-Oct-2019 Instruction Type:Patient Education Patient Instructions Indication:BMI 25.0-25.9,adult Start:21-Oct-2019 Instruction Type:Provider Instructions for Treatment How to access health informa tion online Indication:Non-smoker Start:05-Oct-2019 Instruction Type:Patient Education How to access health informa tion online - Detail Indication:Non-smoker Start:05-Oct-2019 Instruction Type:Patient Education Patient Instructions Indication:Non-smoker Start:05-Oct-2019 Instruction Type:Provider Instructions for Treatment How to access health informa tion online Indication:Non-smoker Start:02-Oct-2019 Instruction Type:Patient Education How to access health informa tion online - Detail Indication:Non-smoker Start:02-Oct-2019 Instruction Type:Patient Education Patient Instructions Indication:Non-smoker Start:02-Oct-2019 Instruction Type:Provider Instructions for Treatment How to access health informa tion online Indication:BMI 25.0-25.9,adult Start:25-Sep-2019 Instruction Type:Patient Education How to access health informa tion online - Detail Indication:BMI 25.0-25.9,adult Start:25-Sep-2019 Instruction Type:Patient Education Patient Instructions Indication:BMI 25.0-25.9,adult Start:25-Sep-2019 Instruction Type:Provider Instructions for Treatment How to access health informa tion online Indication:Non-smoker Start:23-Sep-2019 Instruction Type:Patient Education How to access health informa tion online - Detail Indication:Non-smoker Start:23-Sep-2019 Instruction Type:Patient Education Patient Instructions Indication:Non-smoker Start:23-Sep-2019 Instruction Type:Provider Instructions for Treatment How to access health informa tion online Indication:Non-smoker Start:07-Sep-2019 Instruction Type:Patient Education How to access health informa tion online - Detail Indication:Non-smoker Start:07-Sep-2019 Instruction Type:Patient Education Patient Instructions Indication:Non-smoker Start:07-Sep-2019 Instruction Type:Provider Instructions for Treatment How to access health informa tion online Indication:Sinusitis, acute Start:27-May-2015 Instruction Type:Patient Education How to access health informa tion online - Detail Indication:Sinusitis, acute Start:27-May-2015 Instruction Type:Patient Education Patient Instructions Indication:Sinusitis, acute Start:27-May-2015 Instruction Type:Provider Instructions for Treatment Patient Instructions Indication:Migraine Start:02-May-2015 Instruction Type:Provider Instructions for Treatment How to access health informa tion online Indication:Migraine Start:02-May-2015 Instruction Type:Patient Education How to access health informa tion online - Detail Indication:Migraine Start:02-May-2015 Instruction Type:Patient Education How to access health informa tion online Indication:Migraine Start:28-Mar-2015 Instruction Type:Patient Education How to access health informa tion online - Detail Indication:Migraine Start:28-Mar-2015 Instruction Type:Patient Education Patient Instructions Indication:Migraine Start:28-Mar-2015 Instruction Type:Provider Instructions for Treatment Name Dates Details How to access health informa tion online Indication:Non-smoker Start:22-Oct-2019 Instruction Type:Patient Education How to access health informa tion online - Detail Indication:Non-smoker Start:22-Oct-2019 Instruction Type:Patient Education Patient Instructions Indication:Non-smoker Start:22-Oct-2019 Instruction Type:Provider Instructions for Treatment How to access health informa tion online Indication:BMI 25.0-25.9,adult Start:21-Oct-2019 Instruction Type:Patient Education How to access health informa tion online - Detail Indication:BMI 25.0-25.9,adult Start:21-Oct-2019 Instruction Type:Patient Education Patient Instructions Indication:BMI 25.0-25.9,adult Start:21-Oct-2019 Instruction Type:Provider Instructions for Treatment How to access health informa tion online Indication:Non-smoker Start:05-Oct-2019 Instruction Type:Patient Education How to access health informa tion online - Detail Indication:Non-smoker Start:05-Oct-2019 Instruction Type:Patient Education Patient Instructions Indication:Non-smoker Start:05-Oct-2019 Instruction Type:Provider Instructions for Treatment How to access health informa tion online Indication:Non-smoker Start:02-Oct-2019 Instruction Type:Patient Education How to access health informa tion online - Detail Indication:Non-smoker Start:02-Oct-2019 Instruction Type:Patient Education Patient Instructions Indication:Non-smoker Start:02-Oct-2019 Instruction Type:Provider Instructions for Treatment How to access health informa tion online Indication:BMI 25.0-25.9,adult Start:25-Sep-2019 Instruction Type:Patient Education How to access health informa tion online - Detail Indication:BMI 25.0-25.9,adult Start:25-Sep-2019 Instruction Type:Patient Education Patient Instructions Indication:BMI 25.0-25.9,adult Start:25-Sep-2019 Instruction Type:Provider Instructions for Treatment How to access health informa tion online Indication:Non-smoker Start:23-Sep-2019 Instruction Type:Patient Education How to access health informa tion online - Detail Indication:Non-smoker Start:23-Sep-2019 Instruction Type:Patient Education Patient Instructions Indication:Non-smoker Start:23-Sep-2019 Instruction Type:Provider Instructions for Treatment How to access health informa tion online Indication:Non-smoker Start:07-Sep-2019 Instruction Type:Patient Education How to access health informa tion online - Detail Indication:Non-smoker Start:07-Sep-2019 Instruction Type:Patient Education Patient Instructions Indication:Non-smoker Start:07-Sep-2019 Instruction Type:Provider Instructions for Treatment How to access health informa tion online Indication:Sinusitis, acute Start:27-May-2015 Instruction Type:Patient Education How to access health informa tion online - Detail Indication:Sinusitis, acute Start:27-May-2015 Instruction Type:Patient Education Patient Instructions Indication:Sinusitis, acute Start:27-May-2015 Instruction Type:Provider Instructions for Treatment Patient Instructions Indication:Migraine Start:02-May-2015 Instruction Type:Provider Instructions for Treatment How to access health informa tion online Indication:Migraine Start:02-May-2015 Instruction Type:Patient Education How to access health informa tion online - Detail Indication:Migraine Start:02-May-2015 Instruction Type:Patient Education How to access health informa tion online Indication:Migraine Start:28-Mar-2015 Instruction Type:Patient Education How to access health informa tion online - Detail Indication:Migraine Start:28-Mar-2015 Instruction Type:Patient Education Patient Instructions Indication:Migraine Start:28-Mar-2015 Instruction Type:Provider Instructions for Treatment Advance Directives No Advanced Directives Records Found Name Dates Details Immunization Registry [place] - Effective on 03/04/2020. Expiration date unspecified Effective:04-Mar-2020 Name Dates Details Immunization Registry [place] - Effective on 03/04/2020. Expiration date unspecified Effective:04-Mar-2020 Name Dates Details Immunization Registry [place] - Effective on 03/04/2020. Expiration date unspecified Effective:04-Mar-2020 Name Dates Details Immunization Registry [place] - Effective on 03/04/2020. Expiration date unspecified Effective:04-Mar-2020 Name Dates Details Immunization Registry [place] - Effective on 03/04/2020. Expiration date unspecified Effective:04-Mar-2020 Name Dates Details Immunization Registry [place] - Effective on 03/04/2020. Expiration date unspecified Effective:04-Mar-2020 Name Dates Details Immunization Registry [place] - Effective on 03/04/2020. Expiration date unspecified Effective:04-Mar-2020 Advance Directive Response Recorded Date/ Time Living Will Yes August 28, 2021 2:40pm Power of Reaming Machine Tender Yes August 28 2:40pm Advance Directive Response Recorded Date/ Time Name of Medical Power of Reaming Machine Tender EDUARD BURRIS SER January 29, 2022 1:41pm Living Will Yes January 29 1:41pm Power of Reaming Machine Tender Yes January 29 022 1:41pm Name Dates Details Immunization Registry [place] - Effective on 03/04/2020. Expiration date unspecified Effective:04-Mar-2020 Name Dates Details Immunization Registry [place] - Effective on 03/04/2020. Expiration date unspecified Effective:04-Mar-2020 Name Dates Details Immunization Registry [place] - Effective on 04/11/2022. Expiration date unspecified Effective:11-Apr-2022 Name Dates Details Immunization Registry [place] - Effective on 04/11/2022. Expiration date unspecified Effective:11-Apr-2022 Name Dates Details Immunization Registry [place] - Effective on 04/11/2022. Expiration date unspecified Effective:11-Apr-2022 Name Dates Details Immunization Registry [place] - Effective on 04/11/2022. Expiration date unspecified Effective:11-Apr-2022 Name Dates Details Immunization Registry [place] - Effective on 04/11/2022. Expiration date unspecified Effective:11-Apr-2022 Name Dates Details Immunization Registry [place] - Effective on 04/11/2022. Expiration date unspecified Effective:11-Apr-2022 Name Dates Details Immunization Registry [place] - Effective on 04/11/2022. Expiration date unspecified Effective:11-Apr-2022 Name Dates Details Immunization Registry [place] - Effective on 04/11/2022. Expiration date unspecified Effective:11-Apr-2022 Name Dates Details Immunization Registry [place] - Effective on 04/11/2022. Expiration date unspecified Effective:11-Apr-2022 Chief Complaint and Reason for Visit Chief Complaint 6 M FU OA SCANNING ONLY! PAT Pre-Surgical Testing Reason for Visit Asthma Lung nodule Chief Complaint 6 M FU OA SCANNING ONLY! PAT Pre-Surgical Testing ABNORMAL EKG ARRYTHMIA Reason for Visit Asthma Lung nodule Encounter for pre-operative cardiovascular clearance Chief Complaint ABNORMAL EKG ARRYTHMIA Amb Documentation Reason for Visit Encounter for pre-op erative cardiovascular clearance Encounter for screening for malignant neoplasm of colon Summary Purpose Additional Source Comments Goals (unrecognized section and content) Goals may be documented in a n alternate sectionGoals may be documented in an alternate section (unrecognized sect ion and content) No Status Records FoundNo Status Records Found INFORMATION SOURCE (unrecogn ized section and content) DATE CREATED AUTHOR 09/04/2022 [facility] DATE CREATED AUTHOR AUTHOR'S ORGANIZ ATION 03/07/2025 [facility] FOR RECORDS PERTAINING TO PATIENTS WHO ARE OR HAVE BEEN ENROLLED IN A CHEMICAL DEPENDENCY/SUBSTANCEABUSE PROGRAM, SOME INFORMATION MAY BE OMITTED. This clinical summary was aggregated from multiple sources. Caution should be exercised in using it in the provision of clinical care. This summary normalizes information from multiple sources, and as a consequence, information in this document may materially change the coding, format and clinical context of patient data. In addition, data may be omitted in some cases. CLINICAL DECISIONS SHOULD BE BASED ON THE PRIMARY CLINICAL RECORDS. [facility] [employer] provides no warranty or guarantee of the accuracy or completeness of information in this document.
[2025-03-22] MEDS: Lactated Ringers 1,000 ML 15 ML IV (06:03)
--- NOTE | 2025-03-22 06:11 | PCM.PRE.AN2 ---
ASA Classification* ASA Classification ASA Classification: 2 Assessment & Plan Anesthesia* Anesthesia Assessment Anesthesia Assessment: Discussed sedation and/or anesthesia options, risks, benefits, and alternatives with patient/parents/legal guardian/POA. Questions invited. The patient/parents/legal guardian/POA seems to understand and agrees to proceed with anesthesia plan. Reviewed the physical assessment, medical history, allergy history and patient home medications list prior to surgery/procedure/anesthetic and documented any changes. Performed airway and anesthesia risk assessments. Anesthesia Type Anesthesia Type: MAC History Source History Obtained from:: Patient and Chart Anesthesia Focused Assessment* Temperature: 97.8 F Pulse Rate: 82 Blood Pressure: 141/82 Respiratory Rate: 16 Pulse Ox: 100 Oxygen Delivery Method: Room Air Airway Assessment Mouth opens: >3 cm Mallampati Score: IV Teeth Condition: Lower (Patient has a right lower permanent bridge. It is tight.) Neck Range of motion (ROM): Limited ROM (Slight Decrease) Labs Anesthesia Preop lab: CBC WBC, (4.4-11.0) 10.0 K/mm3 09/13/19, 13:45 RBC, (4.6-6.2) 5.39 M/mm3 09/13/19, 13:45 Hgb, (13.0-16.5) 16.4 g/dL 09/13/19, 13:45 Hct, (40-54) 48.9 % 09/13/19, 13:45 Plt Count, (150-450) 215 K/mm3 09/13/19, 13:45 CHEMISTRY Potassium, (3.5-5.1) 3.7 mmol/L 09/13/19, 13:45 Sodium, (136-145) 141 mmol/L 09/13/19, 13:45 BUN, (7-18) 7 mg/dL 09/13/19, 13:45 Creatinine, (0.70-1.30) 1.05 mg/dL 09/13/19, 13:45 Glucose, (74-106) 122 mg/dL H 09/13/19, 13:45 COAG Pre-Assessment Diagnosis/Proposed Procedure Planned Operative Procedure(s): COLONOSCOPY Anesthesia History Anesthesia History - utilization supervisor: Anesthesia History - utilization supervisor Hx Hospitalization No 03/17/25 12:01 Any Problems With Anesthesia No 03/17/25 12:01 Cholinesterase deficiency No 03/17/25 12:01 You/Your Family Experience No 03/17/25 12:01 fever (hyperthermia) with Relationship Recent Exposure to Contagious No 03/22/25 05:58 Disease Does patient have nerve No 03/17/25 12:01 stimulator Patient instructed to have device shut off --Does patient have Pacemaker No 03/22/25 05:58 or ICD? When Was Last Pacemaker Check QUESTION #4 FULL TEXT: You/Your Family Experience fever (hyperthermia) with Anesthesia Last Oral Intake Last Oral intake: Last Oral Intake NPO since 22:30 03/22/25 05:58 Meds taken in AM with sips of No 03/22/25 05:58 water? Meds patient instructed to take am of surgery PONV PONV - utilization supervisor: PONV - utilization supervisor Female No 03/17/25 12:01 HX of Motion Sickness No 03/17/25 12:01 HX of N/V After Surgery No 03/17/25 12:01 Non-Smoker No 03/17/25 12:01 Duration of Surgery greater No 03/17/25 12:01 than 60 minutes Number of Risk Factors PONV Score Height & Weight Height & Weight: Anesthesia: Height & Weight Height 5 ft 7 in 03/22/25 05:58 Weight: 82 kg 03/22/25 05:58 Body Mass Index (BMI) 28.3 03/22/25 05:58 Respiratory Assessment Respiratory Assessment - utilization supervisor: Respiratory Tract Infection Hx - utilization supervisor Hx Respiratory Tract Infection No 03/17/25 12:01 STOP Sleep Apnea STOP Sleep Apnea - utilization supervisor: STOP Sleep Apnea - utilization supervisor Hx Hypertension No 03/17/25 12:01 Hx Sleep Apnea No 03/17/25 12:01 CPAP BIPAP Do you snore loudly (louder No 03/17/25 12:01 than talking or can be heard Do you often feel tired/ No 03/17/25 12:01 fatigued/ sleepy during daytime? Has anyone observed you stop No 03/17/25 12:01 breathing during sleep? STOP Results Negative 03/17/25 12:01 QUESTION #5 FULL TEXT : Do you snore loudly (louder than talking or can be heard through closed doors)? 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 Specify any problems Hx of Preganancy in last 3 N/A 03/17/25 12:01 Months Nurse Filling Out Transfusion VLEHMAN 03/17/25 12:01 & Questions: Date: 03/17/25 03/17/25 12:01 Time: 12:07 03/17/25 12:01 Patient unable to answer at this time (ie. confused, unrespo /Reproduction History /Reproductive History - utilization supervisor: /Reproductive Hx- utilization supervisor Hx Now Gestational Age (in weeks): EDC: Hx Hx Para Hx Section SAB Active Medications Active Medications: Current Medications Generic Name Dose Route Start Last Admin Trade Name Freq PRN Reason Stop Dose Admin Lactated Ringer's 1,000 mls @ 15 mls/hr 03/22/25 06:15 03/22/25 06:03 IV 15 mls/hr .Q48H BETTINA Administration PFSH Medical History Non-smoker Normal stress echocardiogram Cardiology follow-up encounter Abnormal electrocardiogram Wears glasses Arthritis Dietary restriction Encounter for screening for malignant neoplasm of colon GERD (gastroesophageal reflux disease) Migraine Muscle tension headache Allergic rhinitis Asthma Plantar fasciitis Fibromyalgia Home Medications ?Medication ?Instructions ?Recorded ?Last Taken ?Type therapeutic multivitamin 1 ea PO DAILY 05/13/17 03/21/25 History loratadine 10 mg capsule 10 mg PO DAILY 11/12/19 03/21/25 History cholecalciferol (vitamin D3) 25 25 mcg PO DAILY 11/18/19 03/21/25 History mcg (1,000 unit) capsule famotidine 20 mg tablet 20 mg PO DAILY 11/18/19 03/21/25 History albuterol sulfate 90 mcg/actuation 1 - 2 puff inhalation Q6H PRN 08/28/21 Unknown History aerosol inhaler ASTHMA ascorbic acid (vitamin C) 500 mg 500 mg PO DAILY 08/28/21 03/21/25 History tablet (Vitamin C) zinc 50 mg tablet 50 mg PO DAILY 08/28/21 03/21/25 History metaxalone 800 mg tablet 800 mg PO ONCE PRN MIGRAINES 10/11/21 03/21/25 History rizatriptan 10 mg tablet 10 mg PO ONCE PRN MIGRAINES 10/11/21 03/21/25 History Allergy/AdvReac Type Severity Reaction Status Date / Time codeine AdvReac Nausea Verified 03/17/25 11:59 Family History Father Diabetes Atrial fibrillation History of colon polyps Grandmother Diabetes Other Asthma Heart disease Hypertension Surgical History History of colonoscopy Social History Smoking Status: Never smoker Review of Systems (Anesthesia) ROS Narrative System reviewed and no additional complaints, except as documented.
--- NOTE | 2025-03-22 06:30 | COLBX_PTH ---
PATIENT: NA ARIAS LOC: EN U#:[id number] AGE/SX: 59/M ROOM: RE03/22/[address]: Dr. Nicholas Jean-Baptiste DO : 1965 BED: DIS: 03/22/2025 SPEC #: [id number] RECD: 03/22/25 07:53 STATUS: MEL REQ #: [id number] JACOB: 03/22/25 06:[address]: Nicholas Jean-Baptiste DEPT: SURGICAL PATHOLOGY RECD BY: Tigre Knight ENTERED: 03/22/25 10:17 SP TYPE: COLON BX OTHR DR: Dr. Karley Mckeon DO Tissues: A - COLON BIOPSY Procedures: Surgery Specimen Level IV HEADER OPERATION: Colonoscopy, biopsy PRE-OP DIAGNOSIS: Colon polyps TISSUE SUBMITTED: A- Hepatic flexure polyp biopsy MICROSCOPIC DIAGNOSIS A. Hepatic flexure, polyp, biopsy: * Hyperplastic polyp (deeper sections examined). MICROSCOPIC DESCRIPTION Slides are reviewed. GROSS DESCRIPTION A. Received in fixative is one container labeled with the patient's name and designated Hepatic flexure polyp biopsy. The specimen consists of two irregular fragments of wyatt tissue that measure 0.2 and 0.4 cm. The specimen is totally submitted in one cassette. [place] 03/22/2025 CPT:09363
--- NOTE | 2025-03-22 06:40 | PCM.HP.STD ---
HPI - General General Date of Admission: 03/22/25 Date of Service: 03/22/25 Chief Complaint: Personal history of polyps HPI Narrative NA ARIAS, is a 59 M who presents [today for surveillance colonoscopy. He had a colonoscopy back in 2021. He had 3 adenomatous polyps on that time. He comes back in for surveillance. He does not have any abdominal pain, cramping, chest pain or shortness of breath. Overall he is in very good health.] [facility] Medical History Non-smoker Normal stress echocardiogram Cardiology follow-up encounter Abnormal electrocardiogram Wears glasses Arthritis Dietary restriction Encounter for screening for malignant neoplasm of colon GERD (gastroesophageal reflux disease) Migraine Muscle tension headache Allergic rhinitis Asthma Plantar fasciitis Fibromyalgia Home Medications ?Medication ?Instructions ?Recorded ?Last Taken ?Type therapeutic multivitamin 1 ea PO DAILY 05/13/17 03/21/25 History loratadine 10 mg capsule 10 mg PO DAILY 11/12/19 03/21/25 History cholecalciferol (vitamin D3) 25 25 mcg PO DAILY 11/18/19 03/21/25 History mcg (1,000 unit) capsule famotidine 20 mg tablet 20 mg PO DAILY 11/18/19 03/21/25 History albuterol sulfate 90 mcg/actuation 1 - 2 puff inhalation Q6H PRN 08/28/21 Unknown History aerosol inhaler ASTHMA ascorbic acid (vitamin C) 500 mg 500 mg PO DAILY 08/28/21 03/21/25 History tablet (Vitamin C) zinc 50 mg tablet 50 mg PO DAILY 08/28/21 03/21/25 History metaxalone 800 mg tablet 800 mg PO ONCE PRN MIGRAINES 10/11/21 03/21/25 History rizatriptan 10 mg tablet 10 mg PO ONCE PRN MIGRAINES 10/11/21 03/21/25 History Allergy/AdvReac Type Severity Reaction Status Date / Time codeine AdvReac Nausea Verified 03/17/25 11:59 Family History Father Diabetes Atrial fibrillation History of colon polyps Grandmother Diabetes Other Asthma Heart disease Hypertension Surgical History History of colonoscopy Social History Smoking Status: Never smoker ROS Constitutional Constitutional: Denies fatigue, fever(s), poor appetite, weight gain or weight loss Gastrointestinal Gastrointestinal: Denies belching, bloating, change in bowel habits, change in stool character, chewing difficulty, coffee ground emesis, constipation, cramping, diarrhea, dyspepsia, dysphagia, early satiety, excessive flatus, fecal incontinence, heartburn, hematemesis, hematochezia, hemorrhoids, loose stools, melena, nausea, odynophagia, rectal bleeding, tenesmus, vomiting or weight changes Vital Signs Vital Signs Vital Signs: 03/22/25 05:58 03/22/25 05:58 03/22/25 06:21 Temperature 97.8 F 97.8 F Temperature Source Temporal Pulse Rate 82 82 Respiratory Rate 16 16 Respiratory Pattern Normal Blood Pressure 141/82 H 141/82 H Blood Pressure Mean 101 Blood Pressure Source Monitor Blood Pressure Position Semi-Fowlers Blood Pressure Location Left Arm Pulse Ox 100 100 Oxygen Delivery Method Room Air Room Air Weight Weight: 180 lb 12.465 oz Body Mass Index (BMI) 28.3 Physical Exam Const alert, oriented x3, no apparent distress and healthy appearing General Appearance: cooperative GI normal to inspection, nondistended, normoactive bowel sounds, soft to palpation, non-tender and non-distended Percussion: normal to percussion Rectal Exam: deferred Assessment & Plan Assessment/Plan (1) Colon polyps: PLAN: He will undergo surveillance colonoscopy. He was explained alternatives, risk and benefits include not withstanding bleeding, infection, sepsis, perforation, need for surgery . He will have an ASA of 3.
--- NOTE | 2025-03-22 07:12 | OP.COLON_ITS ---
Patient Name: Syed Alegre Procedure Date: 03/22/2025 6:42 AM Date of : 1965 Age: 59 Procedure: Colonoscopy Indications: High risk colon cancer surveillance: Personal history of colonic polyps Providers: Nicholas Jean-Baptiste DO Referring MD: Karley Mckeon Medicines: Monitored Anesthesia Care Patient Profile: This is a 59 year old male. Refer to note in patient chart for documentation of history and physical. Last Colonoscopy: 3 years ago. Complications: No immediate complications. Procedure: Pre-Anesthesia Assessment: - Prior to the procedure, a History and Physical was performed, and patient medications and allergies were reviewed. The patient is competent. The risks and benefits of the procedure and the sedation options and risks were discussed with the patient. All questions were answered and informed consent was obtained. Patient identification and proposed procedure were verified by the physician in the pre-procedure area. Mental Status Examination: alert and oriented. Airway Examination: normal oropharyngeal airway and neck mobility. Respiratory Examination: clear to auscultation. CV Examination: normal. ASA Grade Assessment: II - A patient with mild systemic disease. After reviewing the risks and benefits, the patient was deemed in satisfactory condition to undergo the procedure. The anesthesia plan was to use monitored anesthesia care (MAC). Immediately prior to administration of medications, the patient was re-assessed for adequacy to receive sedatives. The heart rate, respiratory rate, oxygen saturations, blood pressure, adequacy of pulmonary ventilation, and response to care were monitored throughout the procedure. The physical status of the patient was re-assessed after the procedure. After I obtained informed consent, the scope was passed under direct vision. Throughout the procedure, the patient's blood pressure, pulse, and oxygen saturations were monitored continuously. The Colonoscope was introduced through the anus and advanced to the cecum, identified by appendiceal orifice and ileocecal valve. Scope In: 6:55:15 AM Scope Withdrawal Time 0 hours 7 minutes 9 seconds Scope Out: 7:03:49 AM Total Procedure Duration Time 0 hours 8 minutes 34 seconds Findings: The perianal and digital rectal examinations were normal. A 6 mm polyp was found in the hepatic flexure. The polyp was sessile. The polyp was removed with a jumbo cold forceps. Resection and retrieval were complete. Verification of patient identification for the specimen was done. Estimated blood loss was minimal. Impression: - One 6 mm polyp at the hepatic flexure, removed with a jumbo cold forceps. Resected and retrieved. Recommendation: - Repeat colonoscopy in 5 years for surveillance. - Continue present medications. Procedure Code(s): --- Professional --- 56652, Colonoscopy, flexible; with biopsy, single or multiple CPT copyright 2021 [employer]. All rights reserved. The codes documented in this report are preliminary and upon dub room engineer review may be revised to meet current compliance requirements. Nicholas Jean-Baptiste DO 03/22/2025 7:11:05 AM This report has been signed electronically. Number of Addenda: 0 Note Initiated On: 03/22/2025 6:42 AM
--- NOTE | 2025-03-22 07:12 | OP.PROVAT_ITS ---
03/22/2025 Karley Mckeon [address] [place] [address] Re : Colonoscopy procedure for Syed Alegre Dear Dr. Mckeon This procedure was performed on Saturday, March 22, 2025. My impressions and recommendations are as follows: Impressions : - One 6 mm polyp at the hepatic flexure, removed with a jumbo cold forceps. Resected and retrieved. Recommendations : - Repeat colonoscopy in 5 years for surveillance. - Continue present medications. My findings are described in the full procedure note, which is enclosed. If I can be of further assistance, please feel free to contact me at . Sincerely, Nicholas Jean-Baptiste, 03/22/2025 7:11:05 AM This report has been signed electronically.
--- NOTE | 2025-03-22 07:15 | PCM.POST.ANE ---
Anesthesia: Postop Eval I Current Vital Signs Temperature: 97.6 F Pulse Rate: 76 Blood Pressure: 99/56 Respiratory Rate: 16 Pulse Ox: 100 Oxygen Delivery Method: Room Air Assessment Airway patent: Yes Spontaneous unlabored respirations: Yes Mental status: Awake and Calm nausea: No Vomiting: No Anesthesia Complication: No Fluid Hydration Crystalloid volume administer (ml): 400 Total IV fluid infused: 400 Progress Note Anesthesia document: Postop Eval 1 completed: Yes
--- NOTE | 2025-03-22 12:28 | PCM.POSTANE2 ---
Anesthesia Postop Eval I Sum Postop Eval Completion status Anesthesia document: Postop Eval 1 completed: Yes Anesthesia Postop Eval I Summary Anesthesia Postop Eval I Summary: Anesthesia Postop Eval I: Assessment Summary Airway patent Yes 03/22/25 07:18 [email or web address] Spontaneous unlabored Yes 03/22/25 07:18 [email or web address] respirations Mental status Awake,Calm 03/22/25 07:18 [email or web address] nausea No 03/22/25 07:18 [email or web address] Vomiting No 03/22/25 07:18 [email or web address] Anesthesia Postop Eval I: Fluid Summary Crystalloid volume administer 400 03/22/25 07:18 [email or web address] (ml) Colloids volume administered ( ml) Blood Product volume administered (ml) Total IV fluid infused 400 03/22/25 07:18 [email or web address] Anesthesia Postop Eval I: Summary Notes Anesthesia Complication No 03/22/25 07:18 [email or web address] Anesthesia Complication Comment: Post-operative progress note Anesthesia: Postop Eval II Evaluation Mental status: Awake and Calm Pain Level: 0 nausea: No Vomiting: No Complications Anesthesia Complication: No
== END 2025-03-22 07:43 | disposition home or self-care (01) ==
LOC: EN 05:21 → AC 05:22
PROVIDERS: PCP Internal Medicine; Referring Provider Internal Medicine; Visit Provider Internal Medicine Gastroenterology
PROC: 0DJD8ZZ Inspection of Lower Intestinal Tract, Via Natural or Artificial Opening Endoscopic (ICD-10-PCS; CPT 45378; principal; 2025-03-22 06:25)
DX: Z12.11 Encounter for screening for malignant neoplasm of colon (principal); K63.5 Polyp of colon; Z86.0100 Personal history of colon polyps, unspecified; K21.9 Gastro-esophageal reflux disease without esophagitis; Z79.899 Other long term (current) drug therapy
CPT/HCPCS: 45380; 88305; J2405